=== PATIENT | male | born 1955 | race Caucasian/White ===

== ENCOUNTER 2019-10-09 08:54 | Outpatient (CLI) | payer BC, SELFPAY ==
--- NOTE | ~2019-10-09 | XR_ITS ---
EXAMINATION: XR ribs RT 2V DATE: 10/09/2019 09:14 INDICATION: Right rib pain. TECHNIQUE: 2 views of the right ribs on 4 radiographs were obtained. COMPARISON: Chest and right rib radiographs 01/31/2019, chest CT 01/31/2019 FINDINGS: Sensitivity is decreased by obesity. There is no right-sided pleural effusion or pneumothor ax. There is no rib fracture. IMPRESSION: 1. No rib fracture. Reviewed, dictated and finalized at location A. IMPRESSION: 1. No rib fracture.
== END 2019-10-09 08:55 | disposition home or self-care (01) ==
LOC: ANHIMG 09:04
PROVIDERS: PCP Family Medicine; Visit Provider Family Medicine
DX: R07.81 Pleurodynia (principal)
CPT/HCPCS: 71100

== ENCOUNTER 2020-11-03 09:14 | Outpatient (CLI) | payer BC, SELFPAY ==
[2020-11-03 09:49] LABS: Hematocrit 38.3 % (42.0-52.0); Mean Corpuscular HGB Conc 31.3 g/dl (32-36); Mean Corpuscular Hemoglobin 28.6 pg (26-34); Mean Corpuscular Volume 91.4 fl (80-100); Mean Platelet Volume 10.3 fl (7.4-10.4); Platelet Count Result 248 k/mm3 (150-375); Red Blood Count 4.19 M/mm3 (4.6-6.20); Red Cell Distribution Width 13.6 % (11.5-14.5); White Blood Count 11.6 K/mm3 (4.5-10.0)
[2020-11-03 10:04] LABS: Add Urine Microscopic? YES; Appearance Urine Clear (Clear); Bilirubin Urine Negative (Negative); Blood Urine Negative (Negative); Color Urine Yellow (Yellow); Glucose Urine UA Negative (Negative); Ketones Urine Negative (Negative); Leukocyte Esterase Ur Negative LEU/UL (NEGATIVE); Mucus Urine Few /lpf; Nitrate Urine Negative (Negative); Protein Urine 2+ mg/dL (Negative); Squamous Epithelial Cell Urine Rare /hpf (Few); WBC Urine 0-3 /hpf (0-3)
[2020-11-03 10:07] LABS: Alanine Aminotransferase 30 U/L (4-50); Albumin Level 4.2 g/dL (3.5-5.1); Alkaline Phosphatase 106 U/L (38-126); Anion Gap 11 mmol/L (8-16); Aspartate Amino Transferase 32 U/L (17-59); Bilirubin,Total 0.5 mg/dL (0.2-1.3); Blood Urea Nitrogen 17 mg/dL (9-20); Carbon Dioxide 26 mmol/L (22-30); Chloride 102 mmol/L (98-107); Cholesterol 141 mg/dL (0-200); Estimated Glomerular Filt Rate > 60; Glucose 142 mg/dL (65-110); HDL Direct 32 mg/dL; Potassium 4.6 mmol/L (3.4-5.0); Sodium 139 mmol/L (137-145); Triglycerides 101 mg/dL (<150)
[2020-11-03 10:18] LABS: LDL Cholesterol Direct 95 mg/dL
[2020-11-03 10:24] LABS: Hemoglobin A1C 7.3 % (<5.7)
[2020-11-03 10:36] LABS: Prostate Specific Antigen 2.4 ng/mL (< OR = 4.0)
== END 2020-11-03 09:15 | disposition home or self-care (01) ==
PROVIDERS: PCP Family Medicine; Visit Provider Family Medicine
DX: Z00.00 Encounter for general adult medical examination without abnormal findings (principal); R73.01 Impaired fasting glucose; E78.5 Hyperlipidemia, unspecified; I10 Essential (primary) hypertension; R35.1 Nocturia; R53.83 Other fatigue
CPT/HCPCS: 36415; 80053; 80061; 81001; 83036; 84153; 84443; 85027

== ENCOUNTER 2021-03-24 10:42 | Outpatient (CLI) | payer BC, SELFPAY ==
[2021-03-24 11:28] LABS: Alanine Aminotransferase 29 U/L (4-50); Albumin Level 3.8 g/dL (3.5-5.1); Alkaline Phosphatase 88 U/L (38-126); Anion Gap 9 mmol/L (8-16); Aspartate Amino Transferase 27 U/L (17-59); Bilirubin,Total 0.6 mg/dL (0.2-1.3); Blood Urea Nitrogen 19 mg/dL (9-20); Calcium 8.6 mg/dL (8.4-10.2); Carbon Dioxide 26 mmol/L (22-30); Chloride 101 mmol/L (98-107); Estimated Glomerular Filt Rate > 60; Glucose 117 mg/dL (65-110); Potassium 4.6 mmol/L (3.4-5.0); Sodium 136 mmol/L (137-145)
[2021-03-24 11:52] LABS: Hemoglobin A1C 6.1 % (<5.7)
== END 2021-03-24 10:43 | disposition home or self-care (01) ==
LOC: ANHLAB 10:44
PROVIDERS: PCP Family Medicine; Visit Provider Family Medicine
DX: E11.9 Type 2 diabetes mellitus without complications (principal)
CPT/HCPCS: 36415; 80053; 83036

== ENCOUNTER 2021-06-23 09:47 | Outpatient (CLI) | payer BC, SELFPAY ==
[2021-06-23 10:59] LABS: Alanine Aminotransferase 25 U/L (6-50); Albumin Level 4.1 g/dL (3.5-5.1); Alkaline Phosphatase 69 U/L (38-126); Anion Gap 11 mmol/L (8-16); Aspartate Amino Transferase 28 U/L (17-59); Bilirubin,Total 0.6 mg/dL (0.2-1.3); Blood Urea Nitrogen 18 mg/dL (9-20); Calcium 8.8 mg/dL (8.4-10.2); Carbon Dioxide 25 mmol/L (22-30); Chloride 102 mmol/L (98-107); Estimated Glomerular Filt Rate > 60; Glucose 109 mg/dL (65-110); Potassium 4.6 mmol/L (3.4-5.0); Sodium 138 mmol/L (137-145)
== END 2021-06-23 09:48 | disposition home or self-care (01) ==
LOC: ANHLAB 09:48
PROVIDERS: PCP Family Medicine; Visit Provider Family Medicine
DX: E11.9 Type 2 diabetes mellitus without complications (principal)
CPT/HCPCS: 36415; 80053; 83036

== ENCOUNTER 2022-01-19 02:04 | Day surgery (SDC) | payer MEDICARE, SELFPAY ==
[2022-01-13 11:01] VITALS: BMI 37.8
--- NOTE | 2022-01-18 17:01 | PM.HPGS ---
History of Present Illness History of Present Illness Consent: Risks, benefits, and alternatives have been discussed and questions answered. Patient agrees to proceed with procedure. Chief complaint: Hx of colon polyps Narrative: Monroe May (Joe) is a 66 year old male referred for colon cancer screening. He had a tubular adenoma removed about 5 years ago. Review of Systems Review of Systems: All systems reviewed & are unremarkable except as noted in HPI and below PMFSH Past Medical History Medical History Arthritis of right knee Benign hypertensive cardiomyopathy with heart failure Chronic anticoagulation Chronic atrial fibrillation Controlled diabetes mellitus Former smoker GERD (gastroesophageal reflux disease) HLD (hyperlipidemia) Hypertension Morbid obesity Morbid obesity with BMI of 45.0-49.9, adult Obesity EMMA on CPAP Osteoarthritis Pseudogout Surgical History Surgical History H/O cardiac radiofrequency ablation For treatment of AFIB without relief. History of colonoscopy 12/[address] Avila and found a small polyp that was removed and negative for cancer. History of tonsillectomy Family History Family History Father Malignant neoplasm of prostate, Onset Age: 89 Alzheimer disease Mother Family history of lupus erythematosus Diabetes mellitus Other Family history of arthritis Social History Social History Smoking packs per day: 2.5 Smoking cigarettes per day: 50.0 Years smoked: 25 Smoking pack-years: 62.50 Smoking status: Former smoker Tobacco type: cigarettes Smoking end date: 04/06/98 Alcohol intake: current Drinks per week: 3 Alcohol use details: DRINKS Substance use: never Substance use type: does not use Lack of Transportation: No Lack of Food: Never True Current Housing: I Have Housing Concerned About Future Housing: No Difficulty Paying Gas/Electric Bills: No Difficulty Paying for Meds: No Currently Unemployed: No Education: Bachelor's Degree Difficulty w/ Childcare or Family Care: No Living arrangements: alone Additional living arrangements comments: He lives in [place], [place] with his Alicia of 35 years. 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 Gender identity (if verbalized by the patient): Male Spiritual care concerns: No Agree to blood products: Yes Meds Home Medications and Allergies Home Medications Medication Instructions Recorded Confirmed Type rivaroxaban 20 mg tablet (Xarelto) 20 mg PO DAILY 01/31/19 01/19/22 History furosemide 20 mg tablet (Lasix) 20 mg PO DAILY 10/26/20 01/19/22 History naproxen sodium 220 mg tablet 220 mg PO BID PRN Pain 03/31/21 01/19/22 History (Flanax (naproxen)) lisinopril 20 mg tablet 20 mg PO DAILY #90 tabs 06/28/21 01/19/22 Rx metformin 500 mg tablet,extended 1,500 mg PO .COMPLEX #120 tabs 10/20/21 01/19/22 Rx release 24 hr omeprazole 20 mg capsule,delayed See Rx Instructions .Route 10/27/21 01/19/22 Rx release .COMPLEX #90 caps pravastatin 40 mg tablet 40 mg PO DAILY #90 tabs 10/27/21 01/19/22 Rx semaglutide 0.25 mg or 0.5 mg (2 0.25 mg (0.2 mL) subcut WEEKLY 01/04/22 01/19/22 Rx mg/1.5 mL) subcutaneous pen #1.5 mL injector ([employer]) metoprolol tartrate 50 mg tablet 100 mg PO BID 01/13/22 01/19/22 History methylprednisolone 4 mg tablets in See Rx Instructions PO PER PKG DIR 01/17/22 01/19/22 Rx a dose pack (Medrol (Tristan)) 6 days #21 ea Allergies Allergy/AdvReac Type Severity Reaction Status Date / Time No Known Allergies Allergy Verified 01/19/22 07:42 Exam Const: General: jocelyn
[2022-01-19 07:43] VITALS: BP 105/78; PULSE 69; RESP 22; TEMP 36.1; O2SAT 97; BMI 51.0
[2022-01-19 07:53] LABS: Glucose Point of Care 147 mg/dl (65-105)
[2022-01-19] MEDS: LACTATED RINGERS 1,000 ML 150 ML IV CONT (07:56)
--- NOTE | 2022-01-19 08:37 | WPDANESEPPF ---
Anes - Initial Pre Proc Eval Procedure: Operation Date: 01/19/22 09:00 Proposed Procedures p Screening Colonoscopy - Prince Avila MD Date/Time: 01/19/22 08:37 Surgeon: Prince Avila MD Pre Op Diagnosis: Hx of colon polyps Patient Data Age: 66 Gender: M Height: 1.8 m Weight: 166.2 kg Last Vital Signs Temp 97.0 F L 01/19/22 07:43 Pulse 69 01/19/22 07:43 Resp 22 H 01/19/22 07:43 BP 105/78 01/19/22 07:43 Pulse Ox 97 01/19/22 07:43 O2 Del Method Room Air 01/19/22 07:43 Allergies Allergy/AdvReac Type Severity Reaction Status Date / Time No Known Allergies Allergy Verified 01/19/22 07:42 Home Medications Medication Instructions Recorded Confirmed Type rivaroxaban 20 mg tablet (Xarelto) 20 mg PO DAILY 01/31/19 01/19/22 History furosemide 20 mg tablet (Lasix) 20 mg PO DAILY 10/26/20 01/19/22 History naproxen sodium 220 mg tablet 220 mg PO BID PRN Pain 03/31/21 01/19/22 History (Flanax (naproxen)) lisinopril 20 mg tablet 20 mg PO DAILY #90 tabs 06/28/21 01/19/22 Rx metformin 500 mg tablet,extended 1,500 mg PO .COMPLEX #120 tabs 10/20/21 01/19/22 Rx release 24 hr omeprazole 20 mg capsule,delayed See Rx Instructions .Route 10/27/21 01/19/22 Rx release .COMPLEX #90 caps pravastatin 40 mg tablet 40 mg PO DAILY #90 tabs 10/27/21 01/19/22 Rx semaglutide 0.25 mg or 0.5 mg (2 0.25 mg (0.2 mL) subcut WEEKLY 01/04/22 01/19/22 Rx mg/1.5 mL) subcutaneous pen #1.5 mL injector (Ozempic) metoprolol tartrate 50 mg tablet 100 mg PO BID 01/13/22 01/19/22 History methylprednisolone 4 mg tablets in See Rx Instructions PO PER PKG DIR 01/17/22 01/19/22 Rx a dose pack (Medrol (Tristan)) 6 days #21 ea Laboratory Tests 01/19/22 07:50 POC Capillary Glucose 147 mg/dl H mg/dl (65-105) Patient hx anesthesia problems: none Family hx anesthesia problems: none Results Review: All pre-operative results and documents have been reviewed as part of the pre-operative evaluation. [facility] Past Medical History Medical History Arthritis of right knee Benign hypertensive cardiomyopathy with heart failure Chronic anticoagulation Chronic atrial fibrillation Controlled diabetes mellitus Former smoker GERD (gastroesophageal reflux disease) HLD (hyperlipidemia) Hypertension Morbid obesity Morbid obesity with BMI of 45.0-49.9, adult Obesity EMMA on CPAP Osteoarthritis Pseudogout Surgical History Surgical History H/O cardiac radiofrequency ablation For treatment of AFIB without relief. History of colonoscopy 12/[address] Avila and found a small polyp that was removed and negative for cancer. History of tonsillectomy Family History Family History Father Malignant neoplasm of prostate, Onset Age: 89 Alzheimer disease Mother Family history of lupus erythematosus Diabetes mellitus Other Family history of arthritis Social History Social History Smoking packs per day: 2.5 Smoking cigarettes per day: 50.0 Years smoked: 25 Smoking pack-years: 62.50 Smoking status: Former smoker Tobacco type: cigarettes Smoking end date: 04/06/98 Alcohol intake: current Drinks per week: 3 Alcohol use details: DRINKS Substance use: never Substance use type: does not use Lack of Transportation: No Lack of Food: Never True Current Housing: I Have Housing Concerned About Future Housing: No Difficulty Paying Gas/Electric Bills: No Difficulty Paying for Meds: No Currently Unemployed: No Education: Bachelor's Degree Difficulty w/ Childcare or Family Care: No Living arrangements: alone Additional living arrangements comments: He lives in [place], [place] with his Alicia of 35 years. Additional occupation/educa
[2022-01-19 09:02] VITALS: BP 120/75; PULSE 73; RESP 12; O2SAT 100
[2022-01-19 09:12] VITALS: BP 116/74; PULSE 77; RESP 26; O2SAT 96
[2022-01-19 09:22] VITALS: BP 128/79; PULSE 79; RESP 21; O2SAT 97
== END 2022-01-19 09:26 | disposition home or self-care (01) ==
PROVIDERS: PCP Family Medicine; Visit Provider Internal Medicine Gastroenterology
PROC: 0DJD8ZZ Inspection of Lower Intestinal Tract, Via Natural or Artificial Opening Endoscopic (ICD-10-PCS; CPT 45378; principal; 2022-01-19 09:00)
DX: Z12.11 Encounter for screening for malignant neoplasm of colon (principal); K57.30 Diverticulosis of large intestine without perforation or abscess without bleeding; Z86.010 Personal history of colon polyps; I11.0 Hypertensive heart disease with heart failure; I50.9 Heart failure, unspecified; I43 Cardiomyopathy in diseases classified elsewhere; I48.20 Chronic atrial fibrillation, unspecified; E11.9 Type 2 diabetes mellitus without complications; E78.5 Hyperlipidemia, unspecified; K21.9 Gastro-esophageal reflux disease without esophagitis; G47.33 Obstructive sleep apnea (adult) (pediatric); E66.01 Morbid (severe) obesity due to excess calories; Z68.43 Body mass index [BMI] 50.0-59.9, adult; Z87.891 Personal history of nicotine dependence; Z79.01 Long term (current) use of anticoagulants; Z79.84 Long term (current) use of oral hypoglycemic drugs; Z79.899 Other long term (current) drug therapy
CPT/HCPCS: G0105; 82948; J2704; J7120

== ENCOUNTER 2022-02-08 15:12 | Outpatient (CLI) | payer MEDICARE, SELFPAY ==
[2022-02-08 16:10] LABS: Hematocrit 40.6 % (42.0-52.0); Hemoglobin 12.9 g/dL (14.0-18.0); Mean Corpuscular HGB Conc 31.8 g/dl (32-36); Mean Corpuscular Hemoglobin 29.5 pg (26-34); Mean Corpuscular Volume 92.7 fl (80-100); Mean Platelet Volume 9.8 fl (7.4-10.4); Platelet Count Result 295 k/mm3 (150-375); Red Blood Count 4.38 M/mm3 (4.6-6.20); Red Cell Distribution Width 13.2 % (11.5-14.5); White Blood Count 13.3 K/mm3 (4.5-10.0)
[2022-02-08 16:27] LABS: Add Urine Microscopic? NO; Appearance Urine Clear (Clear); Bilirubin Urine Negative (Negative); Blood Urine Negative (Negative); Color Urine Yellow (Yellow); Glucose Urine UA Negative (Negative); Ketones Urine Negative (Negative); Leukocyte Esterase Ur Negative LEU/UL (NEGATIVE); Nitrate Urine Negative (Negative); Protein Urine Negative (Negative); Specific Grav Ur 1.015 (1.001-1.035); Urobilinogen Urine 0.2 mg/dL (<2.0)
[2022-02-08 18:25] LABS: Creatinine Urine 147.5 mg/dL
[2022-02-08 18:35] LABS: Microalbumin Urine Random 36.9 mg/L (0-16.7)
[2022-02-08 19:01] LABS: Alanine Aminotransferase 28 U/L (6-50); Albumin Level 4.2 g/dL (3.5-5.1); Alkaline Phosphatase 66 U/L (38-126); Anion Gap 9 mmol/L (8-16); Aspartate Amino Transferase 21 U/L (17-59); Bilirubin,Total 0.4 mg/dL (0.2-1.3); Blood Urea Nitrogen 22 mg/dL (9-20); Calcium 8.7 mg/dL (8.4-10.2); Carbon Dioxide 25 mmol/L (22-30); Chloride 100 mmol/L (98-107); Cholesterol 185 mg/dL (0-200); Estimated Glomerular Filt Rate > 60; Glucose 109 mg/dL (65-110); HDL Direct 47 mg/dL; Potassium 4.5 mmol/L (3.4-5.0); Sodium 134 mmol/L (137-145); Triglycerides 107 mg/dL (<150)
[2022-02-08 19:10] LABS: NT Pro B Type Natriuretic Pept 420 pg/mL (5-100)
[2022-02-08 19:14] LABS: LDL Cholesterol Direct 101 mg/dL
[2022-02-08 19:33] LABS: Prostate Specific Antigen 6.2 ng/mL (< OR = 4.0)
[2022-02-08 20:20] LABS: Hemoglobin A1C 6.3 % (<5.7)
== END 2022-02-08 15:13 | disposition home or self-care (01) ==
PROVIDERS: PCP Family Medicine; Referring Provider Internal Medicine Cardiovascular Disease; Visit Provider Internal Medicine Cardiovascular Disease
DX: R06.09 Other forms of dyspnea (principal); I50.43 Acute on chronic combined systolic (congestive) and diastolic (congestive) heart failure; Z79.01 Long term (current) use of anticoagulants; I11.0 Hypertensive heart disease with heart failure; E78.5 Hyperlipidemia, unspecified; E11.9 Type 2 diabetes mellitus without complications; R35.1 Nocturia; R53.83 Other fatigue
CPT/HCPCS: 36415; 80053; 80061; 81003; 82043; 83036; 83880; 84153; 84443; 85027

== ENCOUNTER 2022-03-22 00:42 | Day surgery (SDC) | payer MEDICARE, SELFPAY ==
[2022-03-21 13:55] VITALS: BMI 52.7
[2022-03-22] VITALS (10 sets, daily range): BP systolic 106–124; BP diastolic 73–95; PULSE 70–94; RESP 14–21; TEMP 36.2; O2SAT 94–98; BMI 50.4
[2022-03-22 11:17] LABS: Glucose Point of Care 117 mg/dl (65-105)
--- NOTE | 2022-03-22 11:40 | PM.IMHP ---
H&P: HPI History of Present Illness Date/Time: 03/22/22 11:40 Chief Complaint: Mitral regurgitation, MCNEIL Narrative: Monroe May this 66-year-old male with significant MCNEIL, persistent atrial fibrillation and mild cardiomyopathy. He has some CHF. He has mitral regurgitation which is probably moderate, but his echo is difficult to interpret due to his body habitus and he is here for further evaluation of the degree of his mitral regurgitation. He also has hypertension, hyperlipidemia, sleep apnea, diabetes, history of hyponatremia and morbid obesity. He is NPO but is taking his metoprolol this morning. Review of Systems Constitutional: Constitutional: Denies fever(s) Eyes: Eyes: Reports no additional eye complaints ENT: Denies epistaxis Cardiovascular: Cardiovascular: Denies chest pain, Reports pedal edema, Reports lightheadedness and Reports dyspnea Comments: Has had problems with lightheadedness, while venous and some vertigo since I changes medications recently. Less edema recently. Respiratory: Respiratory: Denies chest congestion and Reports dyspnea Comments: Significant SOB and MCNEIL with ADLs Gastrointestinal: Gastrointestinal: Denies abdominal pain and Denies hematochezia Musculoskeletal: Musculoskeletal: Reports no additional musculoskeletal complaints Integumentary/Breasts: Skin/Breast: Reports system reviewed and no additional complaints, except as docu Neurologic: Reports system reviewed and no additional complaints, except as documented, Denies behavioral changes and Denies confusion Psychiatric: Psychiatric: Denies behavioral changes and Denies confusion [facility] Past Medical History Medical History (Updated 03/22/22 @ 11:46 by Kellee Garzon MD) Arthritis of right knee Benign hypertensive cardiomyopathy with heart failure Chronic anticoagulation Chronic atrial fibrillation Chronic combined systolic and diastolic CHF (congestive heart failure) Controlled diabetes mellitus Former smoker GERD (gastroesophageal reflux disease) HLD (hyperlipidemia) Hypertension Mitral regurgitation Morbid obesity Morbid obesity with BMI of 45.0-49.9, adult Obesity EMMA on CPAP Osteoarthritis Pseudogout Surgical History Surgical History H/O cardiac radiofrequency ablation For treatment of AFIB without relief. History of colonoscopy 12/[address] Avila and found a small polyp that was removed and negative for cancer. History of tonsillectomy Family History Family History Father Malignant neoplasm of prostate, Onset Age: 89 Alzheimer disease Mother Family history of lupus erythematosus Diabetes mellitus Other Family history of arthritis Social History Social History (Updated 03/22/22 @ 11:44 by Kellee Garzon MD) Social History: Patient's /significant other a few months ago of metastatic cancer. 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 Smoking packs per day: 2.5 Smoking cigarettes per day: 50.0 Years smoked: 25 Smoking pack-years: 62.50 Smoking status: Former smoker Tobacco type: cigarettes Smoking end date: 04/06/98 Alcohol intake: current Drinks per week: 3 Alcohol use details: DRINKS Substance use: never Substance use type: does not use Lack of Transportation: No Lack of Food: Never True Current Housing: I Have Housing Concerned About Future Housing: No Difficulty Paying Gas/Electric Bills: No Difficulty Paying for Meds: No Currently Unemployed: No Education: Bachelor's Degree Difficulty w/ Childcare or Family Care: No Living arrangements: alone Additional living arrangements comments: He lives in [place], [place] with his Alicia of 35 years. Occupation/Education: retired Additional occupation/education comments: He is retired and worked in the [employer]
--- NOTE | 2022-03-22 11:46 | WPDMODSED ---
Moderate Sedation Note-Pt Data Patient Data Diagnosis: MCNEIL, mitral regurgitation, chronic diastolic heart failure, mild cardiomyopathy Present Complaint: Mitral regurgitation, MCNEIL Procedure to be performed/Plan: Transesophageal ECHO with conscious sedation to assess MR and LV function Allergies Allergy/AdvReac Type Severity Reaction Status Date / Time No Known Allergies Allergy Verified 03/22/22 10:44 Home Medications Medication Instructions Recorded Confirmed Type rivaroxaban 20 mg tablet (Xarelto) 20 mg PO DAILY 01/31/19 03/21/22 History furosemide 20 mg tablet (Lasix) 20 mg PO DAILY 10/26/20 03/21/22 History naproxen sodium 220 mg tablet 220 mg PO BID PRN Pain 03/31/21 03/21/22 History (Flanax (naproxen)) metformin 500 mg tablet,extended 1,500 mg PO .COMPLEX #120 tabs 10/20/21 03/21/22 Rx release 24 hr omeprazole 20 mg capsule,delayed See Rx Instructions .Route 10/27/21 03/21/22 Rx release .COMPLEX #90 caps metoprolol tartrate 50 mg tablet 100 mg PO BID 01/13/22 03/22/22 History pravastatin 40 mg tablet 40 mg PO DAILY #90 tabs 02/24/22 03/21/22 Rx dapagliflozin 10 mg tablet 10 mg PO DAILY #30 tabs 03/07/22 03/21/22 Rx (Farxiga) sacubitril 24 mg-valsartan 26 mg 1 tablet PO BID #60 tabs 03/07/22 03/21/22 Rx tablet (Entresto) spironolactone 25 mg tablet 25 mg PO DAILY #30 tabs 03/07/22 03/21/22 Rx methylprednisolone 4 mg tablets in See Rx Instructions PO PER PKG DIR 03/08/22 03/21/22 Rx a dose pack (Medrol (Tristan)) 6 days #21 ea semaglutide 1 mg/dose (4 mg/3 mL) 0.5 mg subcut WEEKLY 03/22/22 History subcutaneous pen injector Current Medications: Active Medications Sodium Chloride (Normal Saline Iv) 1,000 mls @ 30 mls/hr IV CONT .Q24H [place] Sedation/Anesthesia: No previous sedation/anesthesia problems (including family history). [facility] Past Medical History Medical History Arthritis of right knee Benign hypertensive cardiomyopathy with heart failure Chronic anticoagulation Chronic atrial fibrillation Chronic combined systolic and diastolic CHF (congestive heart failure) Controlled diabetes mellitus Former smoker GERD (gastroesophageal reflux disease) HLD (hyperlipidemia) Hypertension Mitral regurgitation Morbid obesity Morbid obesity with BMI of 45.0-49.9, adult Obesity EMMA on CPAP Osteoarthritis Pseudogout Surgical History Surgical History H/O cardiac radiofrequency ablation For treatment of AFIB without relief. History of colonoscopy 12/[address] Avila and found a small polyp that was removed and negative for cancer. History of tonsillectomy Family History Family History Father Malignant neoplasm of prostate, Onset Age: 89 Alzheimer disease Mother Family history of lupus erythematosus Diabetes mellitus Other Family history of arthritis Social History Social History Social History: Patient's /significant other a few months ago of metastatic cancer. 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 Smoking packs per day: 2.5 Smoking cigarettes per day: 50.0 Years smoked: 25 Smoking pack-years: 62.50 Smoking status: Former smoker Tobacco type: cigarettes Smoking end date: 04/06/98 Alcohol intake: current Drinks per week: 3 Alcohol use details: DRINKS Substance use: never Substance use type: does not use Lack of Transportation: No Lack of Food: Never True Current Housing: I Have Housing Concerned About Future Housing: No Difficulty Paying Gas/Electric Bills: No Difficulty Paying for Meds: No Currently Unemployed: No Education: Bachelor's Degree Difficulty w/ Childcare or Family Care: No Living arrangements: alone Additional living arrangements comments:
--- NOTE | 2022-03-22 12:10 | PM.OP ---
Procedure Note - Brief Procedure Note - Brief Date of procedure: 03/22/22 Pre-op diagnosis: moderate regurgitation Moderate mitral regurgitation, LV function at the lower end of normal, EF 50% Procedure performed: Conscious sedation Transesophageal echo Description of procedure: Uneventful transesophageal echo Surgeon: Kellee Garzon MD Findings: Mitral regurgitation which is no more than moderate, LV function at the lower end of normal EF 50%
--- NOTE | 2022-03-22 12:11 | W.PM.PROC2 ---
Procedure Note - Detailed Date of Procedure 03/22/22 Pre-op Diagnosis moderate regurgitation Post-op Diagnosis Same Procedure Performed Conscious sedation Transesophageal echo Surgeon Kellee Garzon MD Anesthesia Local (With conscious sedation) Indications Monroe May this 66-year-old male with significant MCNEIL, persistent atrial fibrillation and mild cardiomyopathy.? He has some CHF.? He has mitral regurgitation which is probably moderate, but his echo is difficult to interpret due to his body habitus and he is here for further evaluation of the degree of his mitral regurgitation.? He also has hypertension, hyperlipidemia, sleep apnea, diabetes, history of hyponatremia and morbid obesity. Findings Left ventricular function of the lower end of normal, EF 50%. Mitral regurgitation, moderate at most No evidence of intracardiac shunting Plan: The patient's mitral regurgitation is unlikely to be contributing significantly to his MCNEIL. His atrial fibrillation seems well controlled, heart rate in the upper 70's to 80s here. We will continue to treat him for diastolic heart failure and he will continue to try to lose weight as his obesity is likely contributing. He has been having dizziness and some vertigo since I added Farxiga, Entresto and spironolactone. His edema has improved, and he is perhaps having a little improvement and his exertional capacity. Will hold the Entresto for now because of his dizziness, says his blood pressure was running somewhat soft here, 100-110 mmHg and he appears symptomatic. Description of Procedure Conscious sedation: Assessment: The patient has no history of anesthesia problems. The patient's oropharynx is clear. The patient was deemed to be a good candidate for conscious sedation. The patient had continuous hemodynamic and oximetric monitoring during the procedure. Start time: 11:53 a.m. Completion time: 12:12 p.m. Total conscious sedation time: 19 minute Medications Used: Versed 2 mg, fentanyl 100 mcg IV push Trained observer: Elaina Canada RN Outcome: The patient tolerated the procedure well with no complications. Procedure: After informed consent the patient had viscous lidocaine gargle and Hurricaine spray the hypopharynx. The patient had conscious sedation as described above. The transesophageal echo probe was introduced in the esophagus without difficulty. Imaging was obtained in multiplane views. Agitated saline was injected to evaluate for intracardiac shunting. The patient tolerated the procedure well with no complications. Findings: The left atrium was moderate to severely enlarged with spontaneous contrast present. There is no thrombus present in the left atrium or left atrial appendage. The atrial septum appeared intact. Mitral valve appeared normal, with no stenosis or prolapse. The left ventricle had had normal size and thickness with contractility at the lower end of normal, EF estimated to be 50%. The aortic root and valve were normal. The ascending aorta, aortic arch and descending thoracic aorta were normal. The right atrium was also moderate to severely enlarged. The tricuspid valve, right ventricle, pulmonic valve and pulmonic artery were all normal. There is no pericardial effusion. When agitated saline was injected intravenously there was no evidence of intracardiac shunting during normal respiration, cough and Valsalva. Colorflow Doppler Findings: Color-flow Doppler suggested mild to moderate to moderate moderate mitral regurgitation at most. Doppler the pulmonary vein did not show any evidence of flow reversal. There is trivial aortic insufficiency. Complications No immediate complications Condition Stable Disposition Observation
== END 2022-03-22 13:20 | disposition home or self-care (01) ==
PROVIDERS: PCP Family Medicine; Visit Provider Internal Medicine Cardiovascular Disease
PROC: (CPT 93312; principal; 2022-03-22 11:30)
DX: I34.0 Nonrheumatic mitral (valve) insufficiency (principal); I42.9 Cardiomyopathy, unspecified; I48.20 Chronic atrial fibrillation, unspecified; I11.0 Hypertensive heart disease with heart failure; I50.42 Chronic combined systolic (congestive) and diastolic (congestive) heart failure; E11.9 Type 2 diabetes mellitus without complications; K21.9 Gastro-esophageal reflux disease without esophagitis; G47.33 Obstructive sleep apnea (adult) (pediatric); Z87.891 Personal history of nicotine dependence; Z79.01 Long term (current) use of anticoagulants; Z79.84 Long term (current) use of oral hypoglycemic drugs; Z79.899 Other long term (current) drug therapy
CPT/HCPCS: 82948; 93312; 93320; 93325; J2250; J2310; J3010; J7030

== ENCOUNTER 2022-03-25 10:40 | Outpatient (CLI) | payer MEDICARE, SELFPAY ==
[2022-03-25 12:22] LABS: Anion Gap 8 mmol/L (8-16); Blood Urea Nitrogen 28 mg/dL (9-20); Calcium 8.9 mg/dL (8.4-10.2); Carbon Dioxide 27 mmol/L (22-30); Chloride 101 mmol/L (98-107); Estimated Glomerular Filt Rate > 60; Glucose 107 mg/dL (65-110); Potassium 3.8 mmol/L (3.4-5.0); Sodium 136 mmol/L (137-145)
[2022-03-25 12:25] LABS: Rheumatoid Factor > 120.0 IU/ML (<12)
[2022-03-30 21:03] LABS: Anti Cyclic Citrullinated Pept >250 Units (<20)
== END 2022-03-25 10:41 | disposition home or self-care (01) ==
PROVIDERS: PCP Family Medicine; Referring Provider Internal Medicine Cardiovascular Disease; Visit Provider Family Medicine
DX: I50.32 Chronic diastolic (congestive) heart failure (principal); I51.89 Other ill-defined heart diseases; I42.9 Cardiomyopathy, unspecified; R06.09 Other forms of dyspnea
CPT/HCPCS: 36415; 80048; 86038; 86039; 86200; 86430

== ENCOUNTER 2022-12-08 13:40 | Outpatient (CLI) | payer MEDICARE, SELFPAY ==
[2022-12-08 16:10] LABS: Alanine Aminotransferase 17 U/L (6-50); Albumin Level 4.3 g/dL (3.5-5.1); Alkaline Phosphatase 84 U/L (38-126); Anion Gap 11 mmol/L (8-16); Aspartate Amino Transferase 26 U/L (17-59); Blood Urea Nitrogen 14 mg/dL (9-20); Calcium 9.9 mg/dL (8.4-10.2); Carbon Dioxide 25 mmol/L (22-30); Chloride 96 mmol/L (98-107); Estimated Glomerular Filt Rate > 60; Glucose 115 mg/dL (65-110); Potassium 3.9 mmol/L (3.4-5.0); Sodium 132 mmol/L (137-145)
[2022-12-08 23:56] LABS: Hemoglobin A1C 5.2 % (<5.7)
== END 2022-12-08 13:41 | disposition home or self-care (01) ==
PROVIDERS: PCP Family Medicine; Visit Provider Family Medicine
DX: E11.9 Type 2 diabetes mellitus without complications (principal)
CPT/HCPCS: 36415; 80053; 83036

== ENCOUNTER 2023-04-12 10:13 | Outpatient (CLI) | payer MEDICARE, SELFPAY ==
--- NOTE | ~2023-04-12 | CT_ITS ---
CT of the Abdomen and Pelvis: Indication: Hematuria Technique: 2.5 mm axial scans were obtained through the abdomen and pelvis prior to and following in travenous administration of 130 cc of Omnipaque 350. Dose reduction technique was used on this scan b y utilizing automated exposure control and iterative reconstruction technique. The dose-length produc t (DLP) was 3166.46 mGy-cm. Findings: Scans through the lung bases are unremarkable. The liver, spleen, pancreas, gallbladder, adrenals and kidneys are within normal limits. There are at herosclerotic calcifications of the aorta. No lymphadenopathy. No bowel obstruction or bowel wall thickening. There is no evidence to suggest acute appendicitis. Images through the pelvis were performed. Urinary bladder unremarkable. No pelvic mass seen. No ascit es. Impression: No significant abnormalities seen. No etiology for hematuria identified. Reviewed, dictated and finalized at [facility]. NESS CONTINUITY COORDINATOR Impression: No significant abnormalities seen. No etiology for hematuria identified.
[2023-04-12 10:52] LABS: Estimated Glomerular Filt Rate > 60
== END 2023-04-12 10:14 | disposition home or self-care (01) ==
PROVIDERS: Visit Provider Physician Assistant
DX: R31.0 Gross hematuria (principal)
CPT/HCPCS: 74178; Q9967

== ENCOUNTER 2023-08-08 18:18 | Inpatient (IN) | payer MEDICARE, SELFPAY ==
[2023-08-08] VITALS (10 sets, daily range): BP systolic 84–120; BP diastolic 50–80; PULSE 76–94; RESP 16–22; TEMP 36.8; O2SAT 98–100
--- NOTE | ~2023-08-08 | XR_ITS ---
EXAMINATION: XR chest 2V Exam Date/Time: 08/08/2023 20:03 CDT HISTORY: sepsis, AFIB Comparison: 05/27/2016; CTPA 01/31/2019; x-ray right RIBS 10/09/2019. RESULT: Lines, tubes, and devices: None. Lungs and pleura: Clear. Calcified left lower lung granuloma. Cardiomediastinal silhouette: Stable. Other: No acute osseous or upper abdominal finding. IMPRESSION: No acute cardiopulmonary process. Reviewed, dictated and finalized at location K.
--- NOTE | ~2023-08-08 | CT_ITS ---
EXAMINATION: CT abdomen pelvis wo con DATE: 08/08/2023 21:46 INDICATION: hematuria, UTI TECHNIQUE: Computed tomography (CT) of the abdomen and pelvis was performed without intravenous contr ast. Automated exposure control and iterative reconstruction technique were employed. The dose-length product was 1410.45 mGy-cm. COMPARISON: 04/12/2023; CTPA 01/31/2019. FINDINGS: Lower thorax: Calcified left lower lobe granuloma. Aortic valve, coronary artery, and mitral calcific ations. Nonunited right posterior ninth rib fracture. Adjacent mild parenchymal fibrosis and scarring and stable sub-6 mm pulmonary nodules, likely granulomas. Liver: Normal. Biliary/Gallbladder: The gallbladder is partially contracted. No bile duct dilation. Pancreas: No mass or duct dilation. Spleen: Normal. Adrenals:No mass. Kidneys: No suspicious mass, obstructing stone, or hydronephrosis. GI tract: No small or large bowel dilation. Normal appendix. Diverticulosis without diverticulitis. Mesentery/Peritoneum: No ascites, mass, or free air. Retroperitoneum: No mass. Atherosclerotic abdominal aortic and/or arterial calcifications. Pelvis: Pelvic organs are within normal limits. Soft Tissues: Soft tissues and body wall unremarkable. Bones: No acute osseous finding. IMPRESSION: No acute abdominopelvic process detected. Reviewed, dictated and finalized at location K.
[2023-08-08 18:48] LABS: Basophils Absolute Auto 0.1 K/mm3 (0.0-0.1); Basophils Percent Auto 0.9 % (0.2-1.2); Eosinophils Absolute Auto 0.3 K/mm3 (0-0.3); Eosinophils Percent Auto 3.4 % (0-4.4); Hematocrit 26.7 % (42.0-52.0); Immature Granulocyte Absolute 0.03 K/mm3 (0.00-0.031); Immature Granulocyte Percent A 0.4 % (0-0.5); Lymphocytes Absolute Auto 0.82 K/mm3 (0.9-3.2); Lymphocytes Percent Auto 10.7 % (18.3-44.2); Mean Corpuscular Hemoglobin 25.8 pg (26-34); Mean Corpuscular Volume 86.1 fl (80-100); Mean Platelet Volume 8.8 fl (7.4-10.4); Monocytes Absolute Auto 0.5 K/mm3 (0.1-0.6); Neutrophils Percent Auto 77.6 % (45.5-73.1); Platelet Count Result 377 k/mm3 (150-375); Red Cell Distribution Width 18.1 % (11.5-14.5); White Blood Count 7.7 K/mm3 (4.5-10.0)
[2023-08-08 18:59] LABS: Alanine Aminotransferase 10 U/L (6-50); Albumin Level 3.7 g/dL (3.5-5.1); Alkaline Phosphatase 123 U/L (38-126); Anion Gap 12 mmol/L (4-12); Aspartate Amino Transferase 20 U/L (17-59); Bilirubin,Total 0.6 mg/dL (0.2-1.3); Blood Urea Nitrogen 18 mg/dL (9-20); Calcium 8.7 mg/dL (8.4-10.2); Carbon Dioxide 21 mmol/L (22-30); Chloride 102 mmol/L (98-107); Estimated CRCL calculation 122 ml/min; Estimated Glomerular Filt Rate > 60; Glucose 102 mg/dL (65-110); Potassium 3.9 mmol/L (3.4-5.0); Sodium 135 mmol/L (137-145)
[2023-08-08 19:00] LABS: INR 1.6; Prothrombin Time 19.5 Seconds (11.1-14.7)
[2023-08-08 19:01] LABS: Partial Thromboplastin Time 40.5 Seconds (22.3-36.8)
--- NOTE | 2023-08-08 19:11 | PC.NURSE ---
Assumed care of pt from Cat RN at this time. Pt resting comfortably in bed w call light within reach. No additional requests at this time.
--- NOTE | 2023-08-08 19:11 | ED.GENADULT ---
HPI - General Adult General Chief complaint: Recheck/Abnormal Lab/Rx Stated complaint: low hemoglobin Time Seen by Provider: 08/08/23 18:59 History of Present Illness HPI narrative: Patient is a 67 year old male with history of DM, HTN, Afib on Xeralto, diastolic dysfunction, HLD, GERD, rheumatoid arthritis here with low hgb from his PCP's office. Patient notes that he had outpatient labs performed 2 weeks ago through his PCP's office, they noted low hgb, were concerned it could be a lab error and redrew the labs. It continued to be low (unsure of the actual number) so he was informed by his PCP that he should come into the ER for evaluation. Patient notes some associated shortness of breath and fatigue which he had attributed to his history of afib. He has been struggling with hematuria for months. He notes he has had several different rounds of antibiotics as well as an outpatient CT scan and cystoscope via Dr. King to look for source of bleeding. He notes the urine ranges from a light pink to a dark black color. His urine was quite dark a couple of weeks ago and he just finished a course of antibiotics (unknown which antibiotic) via his PCP and this has improved the color of his urine. He denies fever, chills, chest pain. He does follow with Dr. Garzon for his afib, he takes lasix and spironolactone, he is unsure of what his EF is. He denies cough, congestion. He has struggled with alternating constipation and diarrhea for years, last bowel movement was yesterday. He denies dark stools or blood per rectum. 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 Related Data Home Medications Medication Instructions Recorded Confirmed rivaroxaban 20 mg tablet (Xarelto) 20 mg PO DAILY 01/31/19 08/09/23 furosemide 20 mg tablet (Lasix) 20 mg PO DAILY 10/26/20 08/09/23 naproxen sodium 220 mg tablet 220 mg PO BID Pain 03/31/21 08/09/23 (Flanax (naproxen)) metoprolol tartrate 50 mg tablet 100 mg PO BID 01/13/22 08/09/23 empagliflozin 10 mg tablet 10 mg PO DAILY 06/19/23 08/09/23 (Jardiance) losartan 25 mg tablet 25 mg PO DAILY 06/19/23 08/09/23 acetaminophen 325 mg capsule 650 mg PO Q4H PRN Pain (Scale 08/09/23 08/09/23 Score 1-3) hydroxychloroquine 200 mg tablet 400 mg PO DAILY 08/09/23 08/09/23 metformin 500 mg tablet,extended 1,000 mg PO 1800 08/09/23 08/09/23 release 24 hr metformin 500 mg tablet,extended 500 mg PO DAILY 08/09/23 08/09/23 release 24 hr omeprazole 20 mg capsule,delayed 20 mg PO DAILY 08/09/23 08/09/23 release Allergies Allergy/AdvReac Type Severity Reaction Status Date / Time No Known Allergies Allergy Verified 07/10/23 12:58 Review of Systems Review of Systems: All systems reviewed & are unremarkable except as noted in HPI and below PMFSH Past Medical History Medical History Arthritis of right knee Benign hypertensive cardiomyopathy with heart failure Chronic anticoagulation Chronic atrial fibrillation Chronic combined systolic and diastolic CHF (congestive heart failure) Controlled diabetes mellitus Former smoker GERD (gastroesophageal reflux disease) HLD (hyperlipidemia) Hypertension Mitral regurgitation Morbid obesity Morbid obesity with BMI of 45.0-49.9, adult Obesity EMMA on CPAP Osteoarthritis Pseudogout Rheumatoid arthritis Surgical History Surgical History H/O cardiac radiofrequency ablation For treatment of AFIB without relief. History of colonoscopy 12/[address] Avila and found a small polyp that was removed and negative for cancer. History of tonsillectomy Family History Family History Father Malignant neoplasm of prostate, Onset Age: 89 Alzheimer disease Mother Family history
--- NOTE | 2023-08-08 19:15 | ECG_ITS ---
Test Date: 2023-08-08 19:28:46 Measurements Intervals [place] Rate: 82 P: 0 MS: 0 QRS: 27 QRSD: 100 T: 88 QT: 393 QTc: 461 Interpretive Statements ATRIAL FIBRILLATION LOW QRS VOLTAGE IN LIMB LEADS BORDERLINE ST-T WAVE ABNORMALITY- LAT/HIGH LAT LEADS BASELINE ARTIFACT- II, III, AVF ABNORMAL ECG No previous ECG available for comparison Electronically Signed On 08-09-2023 06:23:47 CDT by Yohannes Woodruff D.O.
[2023-08-08] MEDS: LACTATED RINGERS 500 ML 999 ML IV CONT (19:49)
[2023-08-08 20:02] LABS: INR 1.6; Lactic Acid Reflex 2.3 mmol/L (0.7-2.0); Prothrombin Time 19.8 Seconds (11.1-14.7)
[2023-08-08 20:03] LABS: Partial Thromboplastin Time 48.4 Seconds (22.3-36.8)
--- NOTE | 2023-08-08 20:05 | PC.NURSE ---
Pt to XRAY at this time.
[2023-08-08 20:06] LABS: CRP 6.4 mg/dL (<1.0)
[2023-08-08 20:12] LABS: NT Pro B Type Natriuretic Pept 2040 pg/mL (19.9-100)
[2023-08-08 20:15] LABS: Troponin I < 0.012 ng/mL (0.000-0.034)
[2023-08-08 20:38] LABS: Appearance Urine Turbid (Clear); Bacteria Urine 4+ /hpf; Bilirubin Urine Negative (Negative); Blood Urine 3+ (Negative); Color Urine Yellow (Yellow); Glucose Urine UA 3+ mg/dL (Negative); Ketones Urine Negative (Negative); Leukocyte Esterase Ur 3+ LEU/UL (Negative); Nitrate Urine Positive (Negative); Protein Urine Trace mg/dL (Negative); RBC Urine >100 /hpf (0-2); Specific Grav Ur 1.019 (1.001-1.035); Squamous Epithelial Cell Urine None Seen /hpf (Few); Urobilinogen Urine 0.2 mg/dL (<2.0); WBC Urine >100 /hpf (0-3); pH Urine 5.5 (5.0-9.0)
[2023-08-08 20:39] LABS: Add Urine Microscopic? YES
[2023-08-08] MEDS: cefTRIAXone 2 GM/NS 100 ML 2 GM/100 ML BAG IVPB (21:28)
[2023-08-08] MEDS: SODIUM CHLORIDE 0.9% IV 500 ML 999 ML IV CONT (21:36)
[2023-08-08 22:48] LABS: Reflex Lactic Acid Yes or No Add Lactic
[2023-08-08 23:40] LABS: Lactic Acid 1.5 mmol/L (0.7-2.0)
[2023-08-09] VITALS (21 sets, daily range): BP systolic 91–120; BP diastolic 56–75; PULSE 72–109; RESP 14–19; TEMP 36.4–37.3; O2SAT 97–100; BMI 35.2
--- NOTE | 2023-08-09 03:27 | PM.IMHP ---
H&P: HPI History of Present Illness Date/Time: 08/09/23 03:27 Chief Complaint: Anemia Narrative: This is a very pleasant 67-year-old male with PMH ptt-[id number]-[id number] diabetes mellitus, hypertension, paroxysmal AFib on Xarelto, heart failure preserved ejection fraction, hyperlipidemia, GERD, EMMA on CPAP, rheumatoid arthritis, obesity, severe osteoarthritis of the bilateral lower extremities being worked up for bilateral knee replacements and is almost bed-bound due to the severity, who presents with a low hemoglobin from his PCPs office. He has not had anemia before and reports he had outpatient labs performed 2 weeks prior will low hemoglobin and on recheck it is continued to be low. He is also noted fatigue and shortness of breath which are intermittent however he does have that with his AFib. In the past 4 months he has also had intermittent hematuria. He has been seen by Dr. King, had cystoscopy and CT abdomen pelvis without any abnormal findings. In the past weeks the urine became very dark almost a black color. This started to resolve approximately 3 weeks ago. He has also received a couple rounds of antibiotics. However he denies dysuria or foul-smelling urine, denies fevers chills chest pains abdominal pain nausea vomiting or diarrhea. [place] [facility] evaluation demonstrated hypotension as low as 84/63 on arrival improving to 120/72 with 1 L of lactated Ringer's. WBC 7700, hemoglobin 8 with MCV 86.1. The last hemoglobin in our system is 12.9 in February of 2022. INR 1.6. BNP 0, CRP 6.4. His urine appeared clear and yellow, however urinalysis demonstrates turbid, 3+ blood, positive nitrates, greater than 100 wbc's, leuk esterase positive, greater than 100 rbc's, 4+ bacteria. CT abdomen pelvis without contrast not demonstrate acute abdominal pelvic process. In addition to 1 L lactated Ringer's he received ceftriaxone 2 g IV x1. Admitted on 08/09/2023 for workup of hematuria, anemia, treatment of urinary tract infection. Review of Systems Review of Systems: All systems reviewed & are unremarkable except as noted in HPI and below (Subjective) [facility] Past Medical History Medical History Arthritis of right knee Benign hypertensive cardiomyopathy with heart failure Chronic anticoagulation Chronic atrial fibrillation Chronic combined systolic and diastolic CHF (congestive heart failure) Controlled diabetes mellitus Former smoker GERD (gastroesophageal reflux disease) HLD (hyperlipidemia) Hypertension Mitral regurgitation Morbid obesity Morbid obesity with BMI of 45.0-49.9, adult Obesity EMMA on CPAP Osteoarthritis Pseudogout Rheumatoid arthritis Surgical History Surgical History H/O cardiac radiofrequency ablation For treatment of AFIB without relief. History of colonoscopy 12/[address] Avila and found a small polyp that was removed and negative for cancer. History of tonsillectomy Family History Family History Father Malignant neoplasm of prostate, Onset Age: 89 Alzheimer disease Mother Family history of lupus erythematosus Diabetes mellitus Other Family history of arthritis Social History Social History Social History: Patient's /significant other a few months ago of metastatic cancer. 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
[2023-08-09] MEDS: ACETAMINOPHEN 325 MG TABLET 650 MG PO (04:23)
[2023-08-09 06:01] LABS: Basophils Absolute Auto 0.1 K/mm3 (0.0-0.1); Basophils Percent Auto 0.9 % (0.2-1.2); Eosinophils Absolute Auto 0.2 K/mm3 (0-0.3); Eosinophils Percent Auto 4.2 % (0-4.4); Hematocrit 23.8 % (42.0-52.0); Immature Granulocyte Absolute 0.02 K/mm3 (0.00-0.031); Immature Granulocyte Percent A 0.4 % (0-0.5); Lymphocytes Absolute Auto 0.76 K/mm3 (0.9-3.2); Lymphocytes Percent Auto 14.4 % (18.3-44.2); Mean Corpuscular Hemoglobin 25.1 pg (26-34); Mean Corpuscular Volume 86.5 fl (80-100); Monocytes Absolute Auto 0.2 K/mm3 (0.1-0.6); Monocytes Percent Auto 4.6 % (2.6-8.5); Neutrophils Percent Auto 75.5 % (45.5-73.1); Platelet Count Result 367 k/mm3 (150-375); Red Blood Count 2.75 M/mm3 (4.6-6.20); Red Cell Distribution Width 18.1 % (11.5-14.5); White Blood Count 5.3 K/mm3 (4.5-10.0)
[2023-08-09 06:15] LABS: Anion Gap 10 mmol/L (4-12); Blood Urea Nitrogen 15 mg/dL (9-20); Calcium 8.2 mg/dL (8.4-10.2); Carbon Dioxide 21 mmol/L (22-30); Chloride 103 mmol/L (98-107); Estimated CRCL calculation 132 ml/min; Estimated Glomerular Filt Rate > 60; Glucose 83 mg/dL (65-110); Magnesium 1.2 mg/dL (1.6-2.3); Potassium 3.4 mmol/L (3.4-5.0); Sodium 134 mmol/L (137-145)
[2023-08-09 06:26] LABS: Iron 34 ug/dL (49-181)
[2023-08-09 06:32] LABS: Procalcitonin 0.1 ng/mL
[2023-08-09 06:35] LABS: Hemoglobin 6.9 g/dL (14.0-18.0)
[2023-08-09 06:36] LABS: Percent Iron Saturation 13 % (20-50)
[2023-08-09 06:37] LABS: Anisocytosis 1+; Basophilic Stippling 1+; Hypochromasia 1+; Platelet Estimate Adequate (Adequate)
[2023-08-09 06:38] LABS: Schistocytes None Seen
[2023-08-09 07:00] LABS: Glucose Point of Care 113 mg/dl (65-105)
[2023-08-09] MEDS: METOPROLOL TARTRATE 50 MG TAB 100 MG PO ×2 (09:11→22:10)
[2023-08-09] MEDS: POTASSIUM CHLORIDE INJ 40 MEQ in SODIUM CHLORIDE 0.9% IV 500 ML 130 MEQ IVPB (09:21)
[2023-08-09] MEDS: MAGNESIUM SULF 2 GM/WATER 50ML 2 GM/50 ML BAG IVPB (09:21)
[2023-08-09] MEDS: TUBING, BLOOD PLUM PUMP TUBING 1 EACH XX ×2 (09:24→15:12)
[2023-08-09] MEDS: SODIUM CHLORIDE 0.9% IV 250 ML 30 ML IV CONT ×2 (09:41→13:05)
--- NOTE | 2023-08-09 09:48 | WPDURCON ---
Assessment and Plan Assessment and plan (1) Hematuria: Code(s): R31.9 - Hematuria, unspecified Status: Acute Assessment and Plan: Intermittent gross hematuria for several months. Has had negative evaluation with CT urogram and cystoscopy 05/2023. CT a/p reviewed with no acute findings. Hematuria resolved at this time. No indication for acute urologic intervention. Okay to advance diet Hold xarelto. Continue to monitor urine closely (2) Acute urinary tract infection: Code(s): N39.0 - Urinary tract infection, site not specified Status: Acute Assessment and Plan: UA grossly abnormal, concerning for infection. Culture pending at this time. 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 Planning for blood transfusion this am Urology Consult Note HPI Date Seen: 08/09/23 Requesting Physician: Lory Shukla APRN Primary Care Provider: Sammy Rios MD Consult Narrative Narrative: Monroe May is a 67 year old male with a history of AFib on chronic anticoagulation and intermittent gross hematuria who is currently admitted for anemia and is being seen in consultation for gross hematuria. In 05/2023 he had negative evaluation for hematuria with negative CT urogram and cystoscopy that only revealed mild lateral lobe hyperplasia. He states since then, his hematuria had been mild and intermittent until about 1 month ago his urine became dark red, almost black. Denies passage of clots. He saw his PCP and was given a course of antibiotics, he cannot recall what which he completed about 2 weeks ago. No culture obtained that I can see. He reports this did improve his hematuria. His main complaint at this time is a slow, weak stream with dribbling and feeling the need to push/strain to void. He had routine outpatient labs which showed a decline in his hemoglobin to 8.0, therefore he was directed to the ER for further evaluation. Upon arrival, his vital signs were stable, he was afebrile, WBC within normal limits at 7.7, hemoglobin with declined to 6.9, creatinine 0.7, UA with positive nitrites, leukocytes, and WBC. Urine culture is pending at this time. A CT of his abdomen/pelvis was completed which showed no suspicious renal mass, stones, or hydronephrosis, pelvic organs within normal limits, no evidence of clots within the bladder. At the time of my evaluation, the patient is feeling fair. He states that his urine is clear at this time and has no ongoing hematuria. He denies dysuria, urgency, frequency, suprapubic pain, flank pain, or back pain. He does report some mild dizziness and lightheadedness, though notes this is not uncommon for him due to his history of AFib. He is a former smoker, 3 packs per day x20 years, quit 20 years ago. Review of Systems Review of Systems: All systems reviewed & are unremarkable except as noted in HPI and below PMFSH Past Medical History Medical History Arthritis of right knee Benign hypertensive cardiomyopathy with heart failure Chronic anticoagulation Chronic atrial fibrillation Chronic combined systolic and diastolic CHF (congestive heart failure) Controlled diabetes mellitus Former smoker GERD (gastroesophageal reflux disease) HLD (hyperlipidemia) Hypertension Mitral regurgitation Morbid obesity Morbid obesity with BMI of 45.0-49.9, adult Obesity EMMA on CPAP Osteoarthritis Pseudogout Rheumatoid arthritis Surgical History Surgical History H/O cardiac radio
[2023-08-09] MEDS: FOLIC ACID 1 MG TABLET PO (09:49)
[2023-08-09] MEDS: PRAVASTATIN SODIUM 20 MG TABLET 40 MG PO (09:49)
[2023-08-09] MEDS: PANTOPRAZOLE 40 MG TABLET PO (09:49)
[2023-08-09] MEDS: FUROSEMIDE 20 MG TABLET PO (09:50)
[2023-08-09] MEDS: SPIRONOLACTONE 25 MG TABLET PO (09:50)
[2023-08-09] MEDS: HYDROcodone/acetaminophen (*CRX) 5-325 MG TABLET 1 TAB PO ×3 (11:39→22:09)
[2023-08-09 12:12] LABS: Glucose Point of Care 65 mg/dl (65-105)
[2023-08-09 12:40] LABS: Glucose Point of Care 78 mg/dl (65-105)
--- NOTE | 2023-08-09 12:49 | PM.EVENT ---
Event Note Event Note Event Note: Patient had been seen by previous provider same day. Followed up with patient in no acute distress and urine was now clear. UA positive for UTI will increase to 2 gram Rocephin due to outpatient ABX therapy failure. Patient Hgb dropped to 6.9 transfused 2 units PRBC. hypomagnesium and hypokalemia replaced. Patient denied CP, N/v, SOB, or blood in stool but did report dizziness. Occult stool pending will consult GI if possible and continue to hold patient Xarelto at this time. Patient BP improving with IV hydration and PRBC. Urology was consulted and no intervention at this time. Will monitor H&H and transfuse as needed.
[2023-08-09] MEDS: HYDROXYCHLOROQUINE SULFATE 200 MG TABLET 400 MG PO (13:01)
[2023-08-09] MEDS: FUROSEMIDE INJ 40 MG/4 ML VIAL IV PUSH (13:01)
[2023-08-09 17:06] LABS: Glucose Point of Care 81 mg/dl (65-105)
[2023-08-09] MEDS: cefTRIAXone 2 GM/NS 100 ML 2 GM/100 ML BAG IVPB (17:24)
[2023-08-09 20:17] LABS: Hematocrit 28.4 % (42.0-52.0); Hemoglobin 8.9 g/dL (14.0-18.0)
[2023-08-09 23:28] LABS: Glucose Point of Care 95 mg/dl (65-105)
[2023-08-10] VITALS (11 sets, daily range): BP systolic 106–109; BP diastolic 62–74; PULSE 57–97; RESP 18; TEMP 36.4–37; O2SAT 94–100
[2023-08-10 05:22] LABS: Hematocrit 28.9 % (42.0-52.0); Mean Corpuscular HGB Conc 31.1 g/dl (32-36); Mean Corpuscular Hemoglobin 26.1 pg (26-34); Mean Corpuscular Volume 83.8 fl (80-100); Mean Platelet Volume 8.8 fl (7.4-10.4); Platelet Count Result 385 k/mm3 (150-375); Red Blood Count 3.45 M/mm3 (4.6-6.20); Red Cell Distribution Width 17.6 % (11.5-14.5); White Blood Count 7.5 K/mm3 (4.5-10.0)
[2023-08-10] MEDS: HYDROcodone/acetaminophen (*CRX) 5-325 MG TABLET 1 TAB PO ×3 (05:30→20:50)
[2023-08-10 05:42] LABS: Alanine Aminotransferase 9 U/L (6-50); Albumin Level 3.9 g/dL (3.5-5.1); Alkaline Phosphatase 121 U/L (38-126); Anion Gap 10 mmol/L (4-12); Aspartate Amino Transferase 19 U/L (17-59); Bilirubin,Total 0.8 mg/dL (0.2-1.3); Blood Urea Nitrogen 11 mg/dL (9-20); Calcium 8.8 mg/dL (8.4-10.2); Carbon Dioxide 24 mmol/L (22-30); Chloride 99 mmol/L (98-107); Estimated CRCL calculation 132 ml/min; Estimated Glomerular Filt Rate > 60; Glucose 102 mg/dL (65-110); Magnesium 1.5 mg/dL (1.6-2.3); Potassium 3.9 mmol/L (3.4-5.0); Sodium 133 mmol/L (137-145)
--- NOTE | 2023-08-10 08:10 | P.PNIM_ITS ---
Progress Note: A&P Assessment and Plan (1) Hematuria: Code(s): R31.9 - Hematuria, unspecified Status: Acute (2) Acute urinary tract infection: Code(s): N39.0 - Urinary tract infection, site not specified Status: Acute (3) Chronic anticoagulation: Code(s): Z79.01 - retirement (current) use of anticoagulants Status: Acute (4) Blood loss anemia: Code(s): D50.0 - Iron deficiency anemia secondary to blood loss (chronic) Status: Acute (5) Hypomagnesemia: Code(s): E83.42 - Hypomagnesemia Status: Acute (6) Chronic atrial fibrillation: Code(s): I48.20 - Chronic atrial fibrillation, unspecified Status: Acute (7) Hypertension: Code(s): I10 - Essential (primary) hypertension Status: Acute (8) HLD (hyperlipidemia): Code(s): E78.5 - Hyperlipidemia, unspecified Status: Acute (9) EMMA on CPAP: Code(s): G47.33 - Obstructive sleep apnea (adult) (pediatric); Z99.89 - Dependence on other enabling machines and devices Status: Acute (10) GERD (gastroesophageal reflux disease): Code(s): K21.9 - Gastro-esophageal reflux disease without esophagitis Status: Acute (11) Morbid obesity with BMI of 45.0-49.9, adult: Code(s): E66.01 - Morbid (severe) obesity due to excess calories; Z68.42 - Body mass index [BMI] 45.0-49.9, adult Status: Acute (12) Acute on chronic combined systolic and diastolic CHF (congestive heart failure): Code(s): I50.43 - Acute on chronic combined systolic (congestive) and diastolic (congestive) heart failure Status: Acute Plan Anemia secondary to acute blood loss * Acute on chronic iron deficiency anemia and Hematuria * Symptomatic with hypotension and dizziness * Hgb 8.0 POA dropped to 6.9 * 2 units PRBC transfused * occult stool ordered * holding Xarelto * Iron studies * Monitor H&H transfuse if HGB <7.0 Hematuria * Secondary to UTI?? * Urology consulted * recent cysto showed no abnormalities * holding Xarelto Hypotension * secondary to volume loss * IV fluids * 2 untis PRBC transfused UTI * UTI nitrate, leukocytes, and bacteria + Obesity * Grew Staph aureus pending sensitivities * initially in Rocephin added vancomycin * Echo pending to rule out endocarditis * Blood cultures with NGTD Hypomagnesemia * 1.2 POA * replenished * daily mag replenish to keep >2.0 Obesity * encourage increased on physical activity and lifestyle modifications * BMI . * Diet exercise counseling done. * consult to dietitian Diabetes * Accu-Cheks a.c. HS * sliding scale insulin * hold oral diabetic medications * Diabetic diet * consult to dietitian * encourage lifestyle modifications and weight loss * Optimize Alvarado inhibitors and statins. * Watch for hypoglycemia/hypoglycemic protocol ordered Chronic combined systolic and diastolic CHF * Previous echo combined dysfunction EF 54% * echocardiogram pending * EKG SR * Give IV lasix between Units of blood otherwise stable CHF resumed PO lasix * chest x-ray no acute cardiopulmonary findings * Antiplatelet therapy, statin therapy, loop diuretics as indicated,. * Optimize blood pressure less than 130/80. * Fall risk assessment. HX AFIB: Holding Xarelto HX HLD: Resumed statin HX GERD: PPI HX EMMA: CPAP Code status: Full code per patient DVT prophylaxis: SCD's anemia Stress ulcer prophylaxis: Prot
--- NOTE | 2023-08-10 08:10 | PM.IMPN ---
Progress Note: A&P Assessment and Plan (1) Hematuria: Code(s): R31.9 - Hematuria, unspecified Status: Acute (2) Acute urinary tract infection: Code(s): N39.0 - Urinary tract infection, site not specified Status: Acute (3) Chronic anticoagulation: Code(s): Z79.01 - snf (current) use of anticoagulants Status: Acute (4) Blood loss anemia: Code(s): D50.0 - Iron deficiency anemia secondary to blood loss (chronic) Status: Acute (5) Hypomagnesemia: Code(s): E83.42 - Hypomagnesemia Status: Acute (6) Chronic atrial fibrillation: Code(s): I48.20 - Chronic atrial fibrillation, unspecified Status: Acute (7) Hypertension: Code(s): I10 - Essential (primary) hypertension Status: Acute (8) HLD (hyperlipidemia): Code(s): E78.5 - Hyperlipidemia, unspecified Status: Acute (9) EMMA on CPAP: Code(s): G47.33 - Obstructive sleep apnea (adult) (pediatric); Z99.89 - Dependence on other enabling machines and devices Status: Acute (10) GERD (gastroesophageal reflux disease): Code(s): K21.9 - Gastro-esophageal reflux disease without esophagitis Status: Acute (11) Morbid obesity with BMI of 45.0-49.9, adult: Code(s): E66.01 - Morbid (severe) obesity due to excess calories; Z68.42 - Body mass index [BMI] 45.0-49.9, adult Status: Acute (12) Acute on chronic combined systolic and diastolic CHF (congestive heart failure): Code(s): I50.43 - Acute on chronic combined systolic (congestive) and diastolic (congestive) heart failure Status: Acute Plan Anemia secondary to acute blood loss Acute on chronic iron deficiency anemia and Hematuria Symptomatic with hypotension and dizziness Hgb 8.0 POA dropped to 6.9 2 units PRBC transfused occult stool ordered holding Xarelto Iron studies Monitor H&H transfuse if HGB <7.0 Hematuria Secondary to UTI?? Urology consulted recent cysto showed no abnormalities holding Xarelto Hypotension secondary to volume loss IV fluids 2 untis PRBC transfused UTI UTI nitrate, leukocytes, and bacteria + Obesity Grew Staph aureus pending sensitivities initially in Rocephin added vancomycin Echo pending to rule out endocarditis Blood cultures with NGTD Hypomagnesemia 1.2 POA replenished daily mag replenish to keep >2.0 Obesity encourage increased on physical activity and lifestyle modifications BMI . Diet exercise counseling done. consult to dietitian Diabetes Accu-Cheks a.c. HS sliding scale insulin hold oral diabetic medications Diabetic diet consult to dietitian encourage lifestyle modifications and weight loss Optimize Alvarado inhibitors and statins. Watch for hypoglycemia/hypoglycemic protocol ordered Chronic combined systolic and diastolic CHF Previous echo combined dysfunction EF 54% echocardiogram pending EKG SR Give IV lasix between Units of blood otherwise stable CHF resumed PO lasix chest x-ray no acute cardiopulmonary findings Antiplatelet therapy, statin therapy, loop diuretics as indicated,. Optimize blood pressure less than 130/80. Fall risk assessment. HX AFIB: Holding Xarelto HX HLD: Resumed statin HX GERD: PPI HX EMMA: CPAP Code status: Full code per patient DVT prophylaxis: SCD's anemia Stress ulcer prophylaxis: Protonix 40 daily PT/OT notes: Disposition: Patient was admitted for acute blood loss anemia, blood transfusion, hypotension, hematuria and UTI with Staph aureus growing. Blood cultures currently NGTD will continue with current treatment plan pending Echo, sensitivities, and monitor H&H to determine possible cause of blood loss. Time Spent With Patient Time with patient: 15 - 25 minutes Subjective Date/time seen: 08/10/23 08:10 Interval history: Admission: Medical Record This is a very pleasant 67-year-old male wi
[2023-08-10 08:28] LABS: Glucose Point of Care 100 mg/dl (65-105)
[2023-08-10] MEDS: MAGNESIUM SULF 2 GM/WATER 50ML 2 GM/50 ML BAG IVPB (08:45)
[2023-08-10] MEDS: PANTOPRAZOLE 40 MG TABLET PO (08:47)
[2023-08-10] MEDS: FUROSEMIDE 20 MG TABLET PO (08:47)
[2023-08-10] MEDS: PRAVASTATIN SODIUM 20 MG TABLET 40 MG PO (08:47)
[2023-08-10] MEDS: SPIRONOLACTONE 25 MG TABLET PO (08:47)
[2023-08-10] MEDS: HYDROXYCHLOROQUINE SULFATE 200 MG TABLET 400 MG PO (08:47)
[2023-08-10] MEDS: FOLIC ACID 1 MG TABLET PO (08:47)
[2023-08-10] MEDS: METOPROLOL TARTRATE 50 MG TAB 100 MG PO ×2 (08:47→20:50)
[2023-08-10] MEDS: VANCOMYCIN 1,750 MG/NS 500 ML 1,750 MG/500 ML BAG 250 MG IVPB (08:55)
[2023-08-10] MEDS: LINEZOLID 600 MG TABLET PO ×2 (10:31→20:50)
[2023-08-10 11:56] LABS: Glucose Point of Care 118 mg/dl (65-105)
[2023-08-10 17:54] LABS: Glucose Point of Care 96 mg/dl (65-105)
[2023-08-10 21:42] LABS: Glucose Point of Care 113 mg/dl (65-105)
[2023-08-11] VITALS (12 sets, daily range): BP systolic 88–120; BP diastolic 65–75; PULSE 61–95; RESP 16–20; TEMP 36.3–36.9; O2SAT 97–100
--- NOTE | 2023-08-11 | ECHO_ITS ---
Patient Info Name: Monroe May Age: 67 years : 1955 Gender: Male Ht: 71 in Wt: 252 lbs BSA: 2.43 m2 HR: 77 bpm BP: 93 / 65 mmHg Heart Rhythm: Atrial Fibrillation Technical Quality: Fair Exam Date: 08/11/2023 7:59 AM Exam Location: Echo Lab Patient Status: Inpatient Admit Date: 08/09/2023 Staff Ordering Physician: Lory Shukla APRN Computer Field Technician: Mitch Beckford RDCS Attending Provider: Lory Shukla APRN Referring Physician: Vazquez TELLES; Exam Type: CA echo doppler color flow Study Info Indications I39 - Endocarditis and heart valve disorders in diseases classified elsewhere Complete two-dimensional, color flow and Doppler transthoracic echocardiogram is performed. Summary 1. Complete two-dimensional, color flow and Doppler transthoracic echocardiogram is performed. 2. Normal left ventricular size and systolic function. 3. Moderate biatrial dilation. 4. Mildly sclerotic aortic valve with well maintained leaflet excursion. 5. Small amounts of mitral, tricuspid and pulmonic regurgitation. 6. Atrial fibrillation. 7. No findings suspicious for infective vegetation. Left Ventricle Left ventricular chamber dimension is normal. Left ventricular systolic function is normal, estimated at 60-65%. The left ventricular diastolic function is indeterminate. Right Ventricle Right ventricular chamber dimension is normal. Left Atria Left atrial chamber dimension is moderately enlarged. Right Atria Right atrial chamber dimension is moderately enlarged. Aortic Valve The aortic valve is trileaflet. There is mild aortic valve sclerosis. Pulmonic Valve The pulmonic valve is normal. There is trace pulmonic regurgitation. Mitral Valve The mitral valve has normal leaflets. There is mild mitral valve regurgitation. Tricuspid Valve The tricuspid valve leaflets are normal. There is mild tricuspid valve regurgitation. Pericardium/Pleural The pericardium appears normal. Aorta The aortic root size at the sinus of Valsalva is normal. Left Ventricular Outflow Tract Name Value Normal LVOT 2D LVOT Diameter 2.0 cm LVOT Doppler LVOT Peak Gradient 4 mmHg LVOT Mean Gradient 2 mmHg LVOT VTI 20 cm LVOT VTI/AV VTI Ratio 0.8 LVOT Stroke Volume 64 ml LVOT CO 4.9 l/min LVOT CI 2.0 l/min/m2 Pulmonic Valve Name Value Normal RVOT Doppler RVOT Peak Gradient 3 mmHg PV Doppler PV Peak Gradient 2 mmHg PV Regurgitation Doppler KS Peak End Diastolic Velocity 115 cm/s Mitral Valve
[2023-08-11] MEDS: HYDROcodone/acetaminophen (*CRX) 5-325 MG TABLET 1 TAB PO ×3 (00:52→21:09)
[2023-08-11 06:04] LABS: Hematocrit 24.1 % (42.0-52.0); Hemoglobin 7.6 g/dL (14.0-18.0); Mean Corpuscular HGB Conc 31.5 g/dl (32-36); Mean Corpuscular Hemoglobin 26.4 pg (26-34); Mean Corpuscular Volume 83.7 fl (80-100); Mean Platelet Volume 8.9 fl (7.4-10.4); Platelet Count Result 340 k/mm3 (150-375); Red Blood Count 2.88 M/mm3 (4.6-6.20); Red Cell Distribution Width 17.7 % (11.5-14.5); White Blood Count 7.8 K/mm3 (4.5-10.0)
[2023-08-11 06:21] LABS: Alanine Aminotransferase 6 U/L (6-50); Albumin Level 3.3 g/dL (3.5-5.1); Alkaline Phosphatase 109 U/L (38-126); Anion Gap 7 mmol/L (4-12); Aspartate Amino Transferase 16 U/L (17-59); Bilirubin,Total 0.6 mg/dL (0.2-1.3); Blood Urea Nitrogen 6 mg/dL (9-20); Calcium 8.5 mg/dL (8.4-10.2); Carbon Dioxide 24 mmol/L (22-30); Chloride 99 mmol/L (98-107); Estimated CRCL calculation 132 ml/min; Estimated Glomerular Filt Rate > 60; Glucose 101 mg/dL (65-110); Potassium 3.6 mmol/L (3.4-5.0); Sodium 130 mmol/L (137-145)
[2023-08-11 08:37] LABS: Glucose Point of Care 105 mg/dl (65-105)
[2023-08-11] MEDS: METOPROLOL TARTRATE 50 MG TAB 100 MG PO ×2 (08:59→21:09)
[2023-08-11] MEDS: PRAVASTATIN SODIUM 20 MG TABLET 40 MG PO (08:59)
[2023-08-11] MEDS: FUROSEMIDE 20 MG TABLET PO (08:59)
[2023-08-11] MEDS: LINEZOLID 600 MG TABLET PO ×2 (08:59→21:09)
[2023-08-11] MEDS: SPIRONOLACTONE 25 MG TABLET PO (08:59)
[2023-08-11] MEDS: HYDROXYCHLOROQUINE SULFATE 200 MG TABLET 400 MG PO (08:59)
[2023-08-11] MEDS: FOLIC ACID 1 MG TABLET PO (08:59)
[2023-08-11] MEDS: PANTOPRAZOLE 40 MG TABLET PO (08:59)
--- NOTE | 2023-08-11 09:41 | WPDUROPN2 ---
Progress Note: A&P Assessment and Plan (1) Hematuria: Code(s): R31.9 - Hematuria, unspecified Status: Acute Assessment and Plan: Intermittent gross hematuria for several months. Has had negative evaluation with CT urogram and cystoscopy 05/2023. CT a/p reviewed with no acute findings. Hematuria resolved at this time. Likely had recurrence due to UTI. No indication for acute urologic intervention at this time. (2) Acute urinary tract infection: Code(s): N39.0 - Urinary tract infection, site not specified Status: Acute Assessment and Plan: Preliminary urine culture with growth of Staph aureus, susceptibilities pending. Currently on linezolid. Await final culture results and tailor antibiotics accordingly (3) Chronic anticoagulation: Code(s): Z79.01 - long-term (current) use of anticoagulants Status: Acute Assessment and Plan: Xarelto on hold due to anemia (4) Blood loss anemia: Code(s): D50.0 - Iron deficiency anemia secondary to blood loss (chronic) Status: Acute Assessment and Plan: Decline in hemoglobin to 6.9 on admission. Has not received 2 units of blood. Monitor H&H. Not felt to be related to urologic source as urine remains crystal clear Subjective Subjective Date/Time Seen: 08/11/23 09:41 Interval history: Doing well overall today. Complains of body aches and pains due to arthritis. He is voiding without any difficulty. Urine remains crystal clear. Denies dysuria. Denies suprapubic pain, flank pain, nausea, vomiting, fever, or chills. Review of Systems Review of Systems: All systems reviewed & are unremarkable except as noted in HPI and below Exam Narrative: General: Awake, alert, comfortable, no acute distress HEENT: Normocephalic, atraumatic, sclerae anicteric Respiratory: Normal respiratory effort, no accessory muscle use Abdomen: Nondistended, soft, nontender : Urine in urinal at bedside is clear yellow Skin: Normal coloration, warm and dry Neurologic: No focal neuro deficits noted Psychiatric: Appropriate mood and affect, judgment and insight intact Objective Data Vital Signs Vital Signs: Vital Signs - 24 hr 08/10/23 12:05 08/10/23 13:56 08/10/23 16:04 Temperature 98.0 F Pulse Rate 75 57 L 79 Respiratory Rate 18 Blood Pressure 106/66 Pulse Oximetry 94 Oxygen Delivery Fraction of Inspired Oxygen 08/10/23 20:44 08/10/23 20:50 08/10/23 20:00 Temperature 97.5 F L Pulse Rate 84 84 86 Respiratory Rate 18 Blood Pressure 109/62 Pulse Oximetry 100 Oxygen Delivery Fraction of Inspired Oxygen 08/10/23 20:00 08/11/23 00:00 08/11/23 04:00 Temperature Pulse Rate 84 83 94 Respiratory Rate 18 Blood Pressure Pulse Oximetry 100 Oxygen Delivery Room Air Fraction of Inspired Oxygen 08/11/23 05:42 08/11/23 08:59 08/11/23 09:02 Temperature 97.5 F L Pulse Rate 77 92 Respiratory Rate 16 Blood Pressure 93/65 L Pulse Oximetry 97 99 Oxygen Delivery Room Air Fraction of Inspired Oxygen 21 Intake/Output Intake/Output: Intake & Output 08/08/23 08/09/23 08/10/23 08/11/23 23:59 23:59 23:59 23:59 Intake Total 1100 3005 2120 1770 Output Total 2900 1300 1350 Balance 1100 105 820 420 Meds/Results Medications: Active Medications Generic Name Dose Route Start Last Admin Trade Name Freq PRN Reason Stop Dose Admin Acetaminophen 650 mg 08/09/23 04:06 08/09/23 04:23 Acetaminophen 325 Mg Tablet PO 650 mg Q6H PRN Administration Mild Pain (1-3) or Fever Hydrocodone Bitart/Acetaminophen 1 tab 08/09/23 10:35 08/11/23 00:52 Hydrocodone/Acetaminophen (*Crx) 5-325 Mg Tablet PO 1 tab Q4H PRN Administration Pain Rated 6 or Greater Dextrose 12.5 gm 08/09/23 03:24 Dextrose 50% 25 Gm/50 Ml Syringe IV PUSH PRN PRN Hypoglycemia Protocol Folic Acid 1 mg 08/09/23 09:00 07
[2023-08-11] MEDS: LACTULOSE 20 GM/30 ML UDC PO (11:56)
[2023-08-11 11:57] LABS: Glucose Point of Care 99 mg/dl (65-105)
--- NOTE | 2023-08-11 12:09 | P.PNIM_ITS ---
Progress Note: A&P Assessment and Plan (1) Hematuria: Code(s): R31.9 - Hematuria, unspecified Status: Acute (2) Acute urinary tract infection: Code(s): N39.0 - Urinary tract infection, site not specified Status: Acute (3) Chronic anticoagulation: Code(s): Z79.01 - FPC (current) use of anticoagulants Status: Acute (4) Blood loss anemia: Code(s): D50.0 - Iron deficiency anemia secondary to blood loss (chronic) Status: Acute (5) Hypomagnesemia: Code(s): E83.42 - Hypomagnesemia Status: Acute (6) Chronic atrial fibrillation: Code(s): I48.20 - Chronic atrial fibrillation, unspecified Status: Acute (7) Hypertension: Code(s): I10 - Essential (primary) hypertension Status: Acute (8) HLD (hyperlipidemia): Code(s): E78.5 - Hyperlipidemia, unspecified Status: Acute (9) EMMA on CPAP: Code(s): G47.33 - Obstructive sleep apnea (adult) (pediatric); Z99.89 - Dependence on other enabling machines and devices Status: Acute (10) GERD (gastroesophageal reflux disease): Code(s): K21.9 - Gastro-esophageal reflux disease without esophagitis Status: Acute (11) Morbid obesity with BMI of 45.0-49.9, adult: Code(s): E66.01 - Morbid (severe) obesity due to excess calories; Z68.42 - Body mass index [BMI] 45.0-49.9, adult Status: Acute (12) Acute on chronic combined systolic and diastolic CHF (congestive heart failure): Code(s): I50.43 - Acute on chronic combined systolic (congestive) and diastolic (congestive) heart failure Status: Acute Plan Anemia secondary to acute blood loss * Acute on chronic iron deficiency anemia VS Hematuria Vs GI bleed * Symptomatic with hypotension and dizziness * Hgb 8.0 POA dropped to 6.9 * 2 units PRBC transfused * occult stool ordered * holding Xarelto * Iron studies * Monitor H&H transfuse if HGB <7.0 08/11/2023 * HGb drop almost 2 points overnight * No stool for occult * Previous HX of NSAIDS and blood thinners * Ferritin * GI consulted for possible GI bleed Hematuria-RESOLVED * Secondary to UTI?? * Urology consulted * recent cysto showed no abnormalities * holding Xarelto Hypotension * secondary to volume loss * IV fluids * 2 untis PRBC transfused UTI * UTI nitrate, leukocytes, and bacteria + Obesity * Grew Staph aureus pending sensitivities * initially in Rocephin added vancomycin * Echo pending to rule out endocarditis * Blood cultures with NGTD Hypomagnesemia * 1.2 POA * replenished * daily mag replenish to keep >2.0 Obesity * encourage increased on physical activity and lifestyle modifications * BMI . * Diet exercise counseling done. * consult to dietitian Diabetes * Accu-Cheks a.c. HS * sliding scale insulin * hold oral diabetic medications * Diabetic diet * consult to dietitian * encourage lifestyle modifications and weight loss * Optimize Alvarado inhibitors and statins. * Watch for hypoglycemia/hypoglycemic protocol ordered Chronic combined systolic and diastolic CHF * Previous echo combined dysfunction EF 54% * echocardiogram pending * EKG SR * Give IV lasix between Units of blood otherwise stable CHF resumed PO lasix * chest x-ray no acute cardiopulmonary findings * Antiplatelet therapy, statin therapy, loop diuretics as indicated,. * Optimize blood pressure less than 130/80. * Fall risk assessment. Osteoarthritis * Holding methotrexa
--- NOTE | 2023-08-11 12:09 | PM.IMPN ---
Progress Note: A&P Assessment and Plan (1) Hematuria: Code(s): R31.9 - Hematuria, unspecified Status: Acute (2) Acute urinary tract infection: Code(s): N39.0 - Urinary tract infection, site not specified Status: Acute (3) Chronic anticoagulation: Code(s): Z79.01 - halfway (current) use of anticoagulants Status: Acute (4) Blood loss anemia: Code(s): D50.0 - Iron deficiency anemia secondary to blood loss (chronic) Status: Acute (5) Hypomagnesemia: Code(s): E83.42 - Hypomagnesemia Status: Acute (6) Chronic atrial fibrillation: Code(s): I48.20 - Chronic atrial fibrillation, unspecified Status: Acute (7) Hypertension: Code(s): I10 - Essential (primary) hypertension Status: Acute (8) HLD (hyperlipidemia): Code(s): E78.5 - Hyperlipidemia, unspecified Status: Acute (9) EMMA on CPAP: Code(s): G47.33 - Obstructive sleep apnea (adult) (pediatric); Z99.89 - Dependence on other enabling machines and devices Status: Acute (10) GERD (gastroesophageal reflux disease): Code(s): K21.9 - Gastro-esophageal reflux disease without esophagitis Status: Acute (11) Morbid obesity with BMI of 45.0-49.9, adult: Code(s): E66.01 - Morbid (severe) obesity due to excess calories; Z68.42 - Body mass index [BMI] 45.0-49.9, adult Status: Acute (12) Acute on chronic combined systolic and diastolic CHF (congestive heart failure): Code(s): I50.43 - Acute on chronic combined systolic (congestive) and diastolic (congestive) heart failure Status: Acute Plan Anemia secondary to acute blood loss Acute on chronic iron deficiency anemia VS Hematuria Vs GI bleed Symptomatic with hypotension and dizziness Hgb 8.0 POA dropped to 6.9 2 units PRBC transfused occult stool ordered holding Xarelto Iron studies Monitor H&H transfuse if HGB <7.0 08/11/2023 HGb drop almost 2 points overnight No stool for occult Previous HX of NSAIDS and blood thinners Ferritin GI consulted for possible GI bleed Hematuria-RESOLVED Secondary to UTI?? Urology consulted recent cysto showed no abnormalities holding Xarelto Hypotension secondary to volume loss IV fluids 2 untis PRBC transfused UTI UTI nitrate, leukocytes, and bacteria + Obesity Grew Staph aureus pending sensitivities initially in Rocephin added vancomycin Echo pending to rule out endocarditis Blood cultures with NGTD Hypomagnesemia 1.2 POA replenished daily mag replenish to keep >2.0 Obesity encourage increased on physical activity and lifestyle modifications BMI . Diet exercise counseling done. consult to dietitian Diabetes Accu-Cheks a.c. HS sliding scale insulin hold oral diabetic medications Diabetic diet consult to dietitian encourage lifestyle modifications and weight loss Optimize Alvarado inhibitors and statins. Watch for hypoglycemia/hypoglycemic protocol ordered Chronic combined systolic and diastolic CHF Previous echo combined dysfunction EF 54% echocardiogram pending EKG SR Give IV lasix between Units of blood otherwise stable CHF resumed PO lasix chest x-ray no acute cardiopulmonary findings Antiplatelet therapy, statin therapy, loop diuretics as indicated,. Optimize blood pressure less than 130/80. Fall risk assessment. Osteoarthritis Holding methotrexate Patient reporting severe pain we will give low-dose steroid for flare up HX AFIB: Holding Xarelto HX HLD: Resumed statin HX GERD: PPI HX EMMA: CPAP Code status: Full code per patient DVT prophylaxis: SCD's anemia Stress ulcer prophylaxis: Protonix 40 daily PT/OT notes: Disposition: Patient was admitted for acute blood loss anemia, blood transfusion, hypotension, hematuria and UTI with Staph aureus growing. Blood cultures currently NGTD will continue with current treatment plan pending Echo,
[2023-08-11 13:42] LABS: Hematocrit 26.3 % (42.0-52.0); Hemoglobin 8.3 g/dL (14.0-18.0)
--- NOTE | 2023-08-11 14:37 | WPDGICN ---
Assessment and Plan Assessment and plan (1) Acute on chronic anemia: Code(s): D64.9 - Anemia, unspecified Status: Acute Assessment and Plan: no overt gib, if anything probably slow bleed, no urgency to do scopes and last colonoscopy less than 2 year ago if patient is still here, we can do egd/colonoscopy on Monday otherwise as outpatient other risk factors- anticoagulation but on hold, also intermittent hematuria but urological evaluation negative, ? medication (MTX and plaquenil)- if GI work up negative then recommend to see hematology (2) Hematuria: Code(s): R31.9 - Hematuria, unspecified Status: Acute Assessment and Plan: by urology (3) Chronic anticoagulation: Code(s): Z79.01 - correction (current) use of anticoagulants Status: Acute Assessment and Plan: on hold (4) Acute urinary tract infection: Code(s): N39.0 - Urinary tract infection, site not specified Status: Acute Assessment and Plan: on abx (5) Acute on chronic combined systolic and diastolic CHF (congestive heart failure): Code(s): I50.43 - Acute on chronic combined systolic (congestive) and diastolic (congestive) heart failure Status: Acute (6) Rheumatoid arthritis: Code(s): M06.9 - Rheumatoid arthritis, unspecified Status: Acute GI Consult Note Consult date/time: 08/11/23 14:37 Reason for consult: acute chronic anemia HPI: Monroe May is a 67 year old male with medical history of [id number] diabetes mellitus, hypertension, paroxysmal AFib on Xarelto, heart failure preserved ejection fraction, EMMA on CPAP, rheumatoid arthritis on plaquenil and MTX (MY +, elevated CCP), obesity, severe osteoarthritis of the bilateral lower extremities. Had recent evaluation by PCP and noted to have anemia then repeated even lower and advised to go to ER, also noted intermittent hematuria and had urological evaluation, denies any overt gib. He has been seen by Dr. King, had cystoscopy and CT abdomen pelvis without any abnormal findings. ER evaluation on admission WBC 7700, hemoglobin 8 but then down to 6.9 and given blood transfusion. The last hemoglobin 12.9 in February of 2022. INR 1.6. BNP 0, CRP 6.4. Diagnosed with possible UTI on abx, CT abdomen pelvis without contrast not demonstrate acute abdominal pelvic process. Last colonoscopy [address] Avila, only diverticulosis. No EGD. He is comfortable now and breathing better after transfusion. Review of Systems Constitutional: Constitutional: Reports fatigue Eyes: Eyes: Denies blurry vision ENT: Reports Normal hearing present Cardiovascular: Cardiovascular: Denies chest pain Respiratory: Respiratory: Reports dyspnea on exertion Gastrointestinal: Gastrointestinal: Denies abdominal pain, Denies hematochezia and Denies nausea Genitourinary: Comments: uti Musculoskeletal: Musculoskeletal: Reports arthralgias Integumentary/Breasts: Skin/Breast: Denies rash Neurologic: Denies confusion Psychiatric: Psychiatric: Denies behavioral changes [facility] Past Medical History Medical History (Updated 08/11/23 @ 14:42 by Yasir Camarena MD) Acute on chronic anemia Arthritis of right knee Benign hypertensive cardiomyopathy with heart failure Chronic anticoagulation Chronic atrial fibrillation Chronic combined systolic and diastolic CHF (congestive heart failure) Controlled diabetes mellitus Former smoker GERD (gastroesophageal reflux disease) HLD (hyperlipidemia) Hypertension Mitral regurgitation Morbid obesity Morbid obesity with BMI of 45.0-49.9, adult Obesity EMMA on CPAP Osteoarthritis Pseudogout Rheumatoid arthritis Surgical History Surgical History H/O cardiac radiofrequency ablation For treatment of AFIB without relief. History of colonoscopy 12/[address] Avila and found a small polyp that was removed and
[2023-08-11 17:12] LABS: Glucose Point of Care 92 mg/dl (65-105)
[2023-08-11] MEDS: predniSONE 10 MG TABLET 40 MG PO (17:12)
[2023-08-11 20:49] LABS: Glucose Point of Care 116 mg/dl (65-105)
[2023-08-12] VITALS (10 sets, daily range): BP systolic 106–116; BP diastolic 64–80; PULSE 68–89; RESP 18–20; TEMP 36.4–36.6; O2SAT 97–100
[2023-08-12 05:31] LABS: Hematocrit 25.6 % (42.0-52.0); Hemoglobin 7.9 g/dL (14.0-18.0); Mean Corpuscular HGB Conc 30.9 g/dl (32-36); Mean Corpuscular Hemoglobin 26.9 pg (26-34); Mean Corpuscular Volume 87.1 fl (80-100); Mean Platelet Volume 9.1 fl (7.4-10.4); Platelet Count Result 352 k/mm3 (150-375); Red Blood Count 2.94 M/mm3 (4.6-6.20); Red Cell Distribution Width 17.6 % (11.5-14.5); White Blood Count 7.3 K/mm3 (4.5-10.0)
[2023-08-12 05:43] LABS: Alanine Aminotransferase 9 U/L (6-50); Albumin Level 3.5 g/dL (3.5-5.1); Alkaline Phosphatase 114 U/L (38-126); Anion Gap 9 mmol/L (4-12); Aspartate Amino Transferase 16 U/L (17-59); Bilirubin,Total 0.6 mg/dL (0.2-1.3); Blood Urea Nitrogen 8 mg/dL (9-20); Calcium 8.6 mg/dL (8.4-10.2); Carbon Dioxide 22 mmol/L (22-30); Chloride 97 mmol/L (98-107); Estimated CRCL calculation 132 ml/min; Estimated Glomerular Filt Rate > 60; Glucose 148 mg/dL (65-110); Sodium 128 mmol/L (137-145)
[2023-08-12 06:00] LABS: IFOB Positive Control Positive; Immunochemical Fecal Occult Bl Negative (N)
[2023-08-12 08:27] LABS: Glucose Point of Care 118 mg/dl (65-105)
[2023-08-12] MEDS: SPIRONOLACTONE 25 MG TABLET PO (08:47)
[2023-08-12] MEDS: predniSONE 10 MG TABLET 40 MG PO (08:47)
[2023-08-12] MEDS: HYDROXYCHLOROQUINE SULFATE 200 MG TABLET 400 MG PO (08:48)
[2023-08-12] MEDS: SODIUM CHLORIDE 0.9% IV 500 ML IV CONT (08:48)
[2023-08-12] MEDS: METOPROLOL TARTRATE 50 MG TAB 100 MG PO ×2 (08:48→20:26)
[2023-08-12] MEDS: PANTOPRAZOLE 40 MG TABLET PO (08:48)
[2023-08-12] MEDS: FUROSEMIDE 20 MG TABLET PO (08:48)
[2023-08-12] MEDS: LINEZOLID 600 MG TABLET PO ×2 (08:48→20:26)
[2023-08-12] MEDS: FOLIC ACID 1 MG TABLET PO (08:48)
[2023-08-12] MEDS: PRAVASTATIN SODIUM 20 MG TABLET 40 MG PO (08:48)
--- NOTE | 2023-08-12 11:30 | WPDGIPROGNO ---
Progress Note: A&P Assessment and Plan (1) Acute on chronic anemia: Code(s): D64.9 - Anemia, unspecified Status: Acute Assessment and Plan: occult blood in stool negative but we can assess with egd/colonoscopy Monday to see if any gi source to explain anemia could be multifactorial blood thinner on hold now also had h/o intermittent hematuria, already evaluated by urology (2) Acute urinary tract infection: Code(s): N39.0 - Urinary tract infection, site not specified Status: Acute (3) Chronic anticoagulation: Code(s): Z79.01 - extermination supervisor (current) use of anticoagulants Status: Acute (4) Urinary tract infection: Code(s): N39.0 - Urinary tract infection, site not specified Status: Acute (5) EMMA on CPAP: Code(s): G47.33 - Obstructive sleep apnea (adult) (pediatric); Z99.89 - Dependence on other enabling machines and devices Status: Acute (6) Morbid obesity with BMI of 45.0-49.9, adult: Code(s): E66.01 - Morbid (severe) obesity due to excess calories; Z68.42 - Body mass index [BMI] 45.0-49.9, adult Status: Acute Subjective Date/time seen: 08/12/23 11:30 Interval history: no overt gib, no changes, he is comfortable Review of Systems Review of Systems: All systems reviewed & are unremarkable except as noted in HPI and below Exam Const: General: comfortable and no acute distress Other: A&O x3. Obese. HENMT: Face/Nose/Sinus: Normal nares present Eyes: Pupils: Equal, round and reactive pupils present Neck: Neck: supple Resp: Effort & Inspection: normal respiratory effort Auscultation: clear to auscultation bilaterally Cardio: Rate: regular rate Rhythm: abnormal rhythm Heart sounds: no gallops GI: GI Palp: Yes Soft to palpation, No Tenderness to palpation present (GI) and No Guarding due to palpation present (GI) Auscultation: normal bowel sounds Skin: General skin exam: no rashes or lesions noted Neuro: Speech: normal speech Motor exam (neuro): 5/5 motor strength present throughout Extrem: General: edema (Pedal edema bilaterally. Lipodermatosclerosis to the bilateral lower extre) Psych: Affect: normal affect Objective Data Vital Signs Vital Signs: Vital Signs - 24 hr 08/11/23 12:00 08/11/23 15:05 08/11/23 20:00 Temperature 97.3 F L Pulse Rate 82 83 83 Respiratory Rate 18 18 Blood Pressure 103/65 Pulse Oximetry 100 100 Oxygen Delivery Room Air Fraction of Inspired Oxygen 21 08/11/23 21:01 08/11/23 21:09 08/11/23 20:00 Temperature 98.4 F Pulse Rate 61 86 81 Respiratory Rate 20 Blood Pressure 88/66 L Pulse Oximetry 99 Oxygen Delivery Fraction of Inspired Oxygen 08/12/23 00:00 08/12/23 04:00 08/12/23 06:00 Temperature 97.7 F Pulse Rate 82 68 82 Respiratory Rate 20 Blood Pressure 113/80 Pulse Oximetry 97 Oxygen Delivery Fraction of Inspired Oxygen 08/12/23 08:48 08/12/23 08:48 08/12/23 08:00 Temperature Pulse Rate 80 69 Respiratory Rate Blood Pressure Pulse Oximetry Oxygen Delivery Room Air Fraction of Inspired Oxygen Intake/Output Intake/Output: Intake & Output 08/09/23 08/10/23 08/11/23 08/12/23 23:59 23:59 23:59 23:59 Intake Total 3005 2120 2610 1680 Output Total 2900 1300 2775 800 Balance 105 820 -165 880 Meds/Results Medications: Active Medications Generic Name Dose Route Start Last Admin Trade Name Freq PRN Reason Stop Dose Admin Acetaminophen 650 mg 08/09/23 04:06 08/09/23 04:23 Acetaminophen 325 Mg Tablet PO 650 mg Q6H PRN Administration Mild Pain (1-3) or Fever Hydrocodone Bitart/Acetaminophen 1 tab 08/09/23 10:35 08/11/23 21:09 Hydrocodone/Acetaminophen (*Crx) 5-325 Mg Tablet PO 1 tab Q4H PRN Administration Pain Rated 6 or Greater Dextrose 12.5 gm 08/09/23 03:24 Dextrose 50% 25 Gm/50 Ml Syringe IV PUSH PRN PRN Hypoglycemia Protocol Folic
[2023-08-12 12:05] LABS: Glucose Point of Care 153 mg/dl (65-105)
--- NOTE | 2023-08-12 13:08 | P.PNIM_ITS ---
Progress Note: A&P Assessment and Plan (1) Hematuria: Code(s): R31.9 - Hematuria, unspecified Status: Acute (2) Acute urinary tract infection: Code(s): N39.0 - Urinary tract infection, site not specified Status: Acute (3) Chronic anticoagulation: Code(s): Z79.01 - half-way (current) use of anticoagulants Status: Acute (4) Blood loss anemia: Code(s): D50.0 - Iron deficiency anemia secondary to blood loss (chronic) Status: Acute (5) Hypomagnesemia: Code(s): E83.42 - Hypomagnesemia Status: Acute (6) Chronic atrial fibrillation: Code(s): I48.20 - Chronic atrial fibrillation, unspecified Status: Acute (7) Hypertension: Code(s): I10 - Essential (primary) hypertension Status: Acute (8) HLD (hyperlipidemia): Code(s): E78.5 - Hyperlipidemia, unspecified Status: Acute (9) EMMA on CPAP: Code(s): G47.33 - Obstructive sleep apnea (adult) (pediatric); Z99.89 - Dependence on other enabling machines and devices Status: Acute (10) GERD (gastroesophageal reflux disease): Code(s): K21.9 - Gastro-esophageal reflux disease without esophagitis Status: Acute (11) Morbid obesity with BMI of 45.0-49.9, adult: Code(s): E66.01 - Morbid (severe) obesity due to excess calories; Z68.42 - Body mass index [BMI] 45.0-49.9, adult Status: Acute (12) Acute on chronic combined systolic and diastolic CHF (congestive heart failure): Code(s): I50.43 - Acute on chronic combined systolic (congestive) and diastolic (congestive) heart failure Status: Acute Plan Anemia secondary to acute blood loss * Acute on chronic iron deficiency anemia VS Hematuria Vs GI bleed * Symptomatic with hypotension and dizziness * Hgb 8.0 POA dropped to 6.9 * 2 units PRBC transfused * occult stool ordered * holding Xarelto * Iron studies * Monitor H&H transfuse if HGB <7.0 08/11/2023 * HGb drop almost 2 points overnight * No stool for occult * Previous HX of NSAIDS and blood thinners * Ferritin * GI consulted for possible GI bleed 08/12/2023: * Plan for EGD 08/14/2023 * HGB still trending down * Occult stool negative Hematuria-RESOLVED * Secondary to UTI?? * Urology consulted * recent cysto showed no abnormalities * holding Xarelto Hypotension * secondary to volume loss * IV fluids * 2 untis PRBC transfused UTI * UTI nitrate, leukocytes, and bacteria + Obesity * Grew Staph aureus pending sensitivities * initially in Rocephin added vancomycin * Echo pending to rule out endocarditis * Blood cultures with NGTD 08/12/2023: * Echo no evidence of vegetation Hypomagnesemia * 1.2 POA * replenished * daily mag replenish to keep >2.0 Obesity * encourage increased on physical activity and lifestyle modifications * BMI . * Diet exercise counseling done. * consult to dietitian Diabetes * Accu-Cheks a.c. HS * sliding scale insulin * hold oral diabetic medications * Diabetic diet * consult to dietitian * encourage lifestyle modifications and weight loss * Optimize Alvarado inhibitors and statins. * Watch for hypoglycemia/hypoglycemic protocol ordered Chronic combined systolic and diastolic CHF * Previous echo combined dysfunction EF 54% * echocardiogram pending * EKG SR * Give IV lasix between Units of blood otherwise stable CHF resumed PO lasix * chest x-ray no acute cardiopulmonary findings * Antiplatelet therapy, statin therapy, loop di
--- NOTE | 2023-08-12 13:08 | PM.IMPN ---
Progress Note: A&P Assessment and Plan (1) Hematuria: Code(s): R31.9 - Hematuria, unspecified Status: Acute (2) Acute urinary tract infection: Code(s): N39.0 - Urinary tract infection, site not specified Status: Acute (3) Chronic anticoagulation: Code(s): Z79.01 - half-way (current) use of anticoagulants Status: Acute (4) Blood loss anemia: Code(s): D50.0 - Iron deficiency anemia secondary to blood loss (chronic) Status: Acute (5) Hypomagnesemia: Code(s): E83.42 - Hypomagnesemia Status: Acute (6) Chronic atrial fibrillation: Code(s): I48.20 - Chronic atrial fibrillation, unspecified Status: Acute (7) Hypertension: Code(s): I10 - Essential (primary) hypertension Status: Acute (8) HLD (hyperlipidemia): Code(s): E78.5 - Hyperlipidemia, unspecified Status: Acute (9) EMMA on CPAP: Code(s): G47.33 - Obstructive sleep apnea (adult) (pediatric); Z99.89 - Dependence on other enabling machines and devices Status: Acute (10) GERD (gastroesophageal reflux disease): Code(s): K21.9 - Gastro-esophageal reflux disease without esophagitis Status: Acute (11) Morbid obesity with BMI of 45.0-49.9, adult: Code(s): E66.01 - Morbid (severe) obesity due to excess calories; Z68.42 - Body mass index [BMI] 45.0-49.9, adult Status: Acute (12) Acute on chronic combined systolic and diastolic CHF (congestive heart failure): Code(s): I50.43 - Acute on chronic combined systolic (congestive) and diastolic (congestive) heart failure Status: Acute Plan Anemia secondary to acute blood loss Acute on chronic iron deficiency anemia VS Hematuria Vs GI bleed Symptomatic with hypotension and dizziness Hgb 8.0 POA dropped to 6.9 2 units PRBC transfused occult stool ordered holding Xarelto Iron studies Monitor H&H transfuse if HGB <7.0 08/11/2023 HGb drop almost 2 points overnight No stool for occult Previous HX of NSAIDS and blood thinners Ferritin GI consulted for possible GI bleed 08/12/2023: Plan for EGD 08/14/2023 HGB still trending down Occult stool negative Hematuria-RESOLVED Secondary to UTI?? Urology consulted recent cysto showed no abnormalities holding Xarelto Hypotension secondary to volume loss IV fluids 2 untis PRBC transfused UTI UTI nitrate, leukocytes, and bacteria + Obesity Grew Staph aureus pending sensitivities initially in Rocephin added vancomycin Echo pending to rule out endocarditis Blood cultures with NGTD 08/12/2023: Echo no evidence of vegetation Hypomagnesemia 1.2 POA replenished daily mag replenish to keep >2.0 Obesity encourage increased on physical activity and lifestyle modifications BMI . Diet exercise counseling done. consult to dietitian Diabetes Accu-Cheks a.c. HS sliding scale insulin hold oral diabetic medications Diabetic diet consult to dietitian encourage lifestyle modifications and weight loss Optimize Alvarado inhibitors and statins. Watch for hypoglycemia/hypoglycemic protocol ordered Chronic combined systolic and diastolic CHF Previous echo combined dysfunction EF 54% echocardiogram pending EKG SR Give IV lasix between Units of blood otherwise stable CHF resumed PO lasix chest x-ray no acute cardiopulmonary findings Antiplatelet therapy, statin therapy, loop diuretics as indicated,. Optimize blood pressure less than 130/80. Fall risk assessment. Osteoarthritis Holding methotrexate Patient reporting severe pain we will give low-dose steroid for flare up HX AFIB: Holding Xarelto HX HLD: Resumed statin HX GERD: PPI HX EMMA: CPAP Code status: Full code per patient DVT prophylaxis: SCD's anemia Stress ulcer prophylaxis: Protonix 40 daily PT/OT notes: Disposition: Patient was admitted for acute blood loss anemia, blood transfusion, hypotension, he
[2023-08-12 13:16] LABS: Anion Gap 10 mmol/L (4-12); Blood Urea Nitrogen 9 mg/dL (9-20); Calcium 8.6 mg/dL (8.4-10.2); Carbon Dioxide 21 mmol/L (22-30); Chloride 99 mmol/L (98-107); Estimated CRCL calculation 115 ml/min; Estimated Glomerular Filt Rate > 60; Glucose 160 mg/dL (65-110); Potassium 4.1 mmol/L (3.4-5.0); Sodium 130 mmol/L (137-145)
[2023-08-12] MEDS: HYDROcodone/acetaminophen (*CRX) 5-325 MG TABLET 1 TAB PO ×2 (16:04→22:26)
[2023-08-12 17:01] LABS: Glucose Point of Care 172 mg/dl (65-105)
[2023-08-12 20:29] LABS: Glucose Point of Care 152 mg/dl (65-105)
[2023-08-13] VITALS (7 sets, daily range): BP systolic 95–118; BP diastolic 66–78; PULSE 60–89; RESP 17–20; TEMP 36.2–36.5; O2SAT 100
[2023-08-13 05:23] LABS: Hematocrit 25.5 % (42.0-52.0); Hemoglobin 7.8 g/dL (14.0-18.0); Mean Corpuscular HGB Conc 30.6 g/dl (32-36); Mean Corpuscular Hemoglobin 26.8 pg (26-34); Mean Corpuscular Volume 87.6 fl (80-100); Mean Platelet Volume 9.4 fl (7.4-10.4); Platelet Count Result 348 k/mm3 (150-375); Red Blood Count 2.91 M/mm3 (4.6-6.20); White Blood Count 8.9 K/mm3 (4.5-10.0)
[2023-08-13 05:41] LABS: Alanine Aminotransferase 10 U/L (6-50); Albumin Level 3.4 g/dL (3.5-5.1); Alkaline Phosphatase 103 U/L (38-126); Anion Gap 7 mmol/L (4-12); Aspartate Amino Transferase 18 U/L (17-59); Bilirubin,Total 0.5 mg/dL (0.2-1.3); Blood Urea Nitrogen 11 mg/dL (9-20); Calcium 8.6 mg/dL (8.4-10.2); Carbon Dioxide 24 mmol/L (22-30); Chloride 101 mmol/L (98-107); Estimated CRCL calculation 115 ml/min; Estimated Glomerular Filt Rate > 60; Glucose 121 mg/dL (65-110); Sodium 132 mmol/L (137-145)
--- NOTE | 2023-08-13 08:30 | PC.NURSE ---
Patient refused prednisone this morning as he was requesting a smaller dose and wanted to speak with the hospitalist first.
[2023-08-13 08:36] LABS: Glucose Point of Care 110 mg/dl (65-105)
[2023-08-13] MEDS: LINEZOLID 600 MG TABLET PO ×2 (09:13→20:13)
[2023-08-13] MEDS: PRAVASTATIN SODIUM 20 MG TABLET 40 MG PO (09:13)
[2023-08-13] MEDS: SPIRONOLACTONE 25 MG TABLET PO (09:13)
[2023-08-13] MEDS: HYDROXYCHLOROQUINE SULFATE 200 MG TABLET 400 MG PO (09:13)
[2023-08-13] MEDS: PANTOPRAZOLE 40 MG TABLET PO (09:13)
[2023-08-13] MEDS: FOLIC ACID 1 MG TABLET PO (09:13)
[2023-08-13] MEDS: FUROSEMIDE 20 MG TABLET PO (09:13)
[2023-08-13] MEDS: METOPROLOL TARTRATE 50 MG TAB 100 MG PO ×2 (09:17→20:13)
--- NOTE | 2023-08-13 09:31 | P.PNIM_ITS ---
Progress Note: A&P Assessment and Plan (1) Hematuria: Code(s): R31.9 - Hematuria, unspecified Status: Acute (2) Acute urinary tract infection: Code(s): N39.0 - Urinary tract infection, site not specified Status: Acute (3) Chronic anticoagulation: Code(s): Z79.01 - correction (current) use of anticoagulants Status: Acute (4) Blood loss anemia: Code(s): D50.0 - Iron deficiency anemia secondary to blood loss (chronic) Status: Acute (5) Hypomagnesemia: Code(s): E83.42 - Hypomagnesemia Status: Acute (6) Chronic atrial fibrillation: Code(s): I48.20 - Chronic atrial fibrillation, unspecified Status: Acute (7) Hypertension: Code(s): I10 - Essential (primary) hypertension Status: Acute (8) HLD (hyperlipidemia): Code(s): E78.5 - Hyperlipidemia, unspecified Status: Acute (9) EMMA on CPAP: Code(s): G47.33 - Obstructive sleep apnea (adult) (pediatric); Z99.89 - Dependence on other enabling machines and devices Status: Acute (10) GERD (gastroesophageal reflux disease): Code(s): K21.9 - Gastro-esophageal reflux disease without esophagitis Status: Acute (11) Morbid obesity with BMI of 45.0-49.9, adult: Code(s): E66.01 - Morbid (severe) obesity due to excess calories; Z68.42 - Body mass index [BMI] 45.0-49.9, adult Status: Acute (12) Acute on chronic combined systolic and diastolic CHF (congestive heart failure): Code(s): I50.43 - Acute on chronic combined systolic (congestive) and diastolic (congestive) heart failure Status: Acute Plan Anemia secondary to acute blood loss * Acute on chronic iron deficiency anemia VS Hematuria Vs GI bleed * Symptomatic with hypotension and dizziness * Hgb 8.0 POA dropped to 6.9 * 2 units PRBC transfused * occult stool ordered * holding Xarelto * Iron studies * Monitor H&H transfuse if HGB <7.0 08/11/2023 * HGb drop almost 2 points overnight * No stool for occult * Previous HX of NSAIDS and blood thinners * Ferritin * GI consulted for possible GI bleed 08/12/2023: * Plan for EGD 08/14/2023 * HGB still trending down * Occult stool negative * if nothing found on EGD my need to see Hematology O/P Hematuria-RESOLVED * Secondary to UTI?? * Urology consulted * recent cysto showed no abnormalities * holding Xarelto Hypotension * secondary to volume loss * IV fluids * 2 untis PRBC transfused UTI * UTI nitrate, leukocytes, and bacteria + Obesity * Grew Staph aureus pending sensitivities * initially in Rocephin added vancomycin * Echo pending to rule out endocarditis * Blood cultures with NGTD 08/12/2023: * Echo no evidence of vegetation Hypomagnesemia * 1.2 POA * replenished * daily mag replenish to keep >2.0 Obesity * encourage increased on physical activity and lifestyle modifications * BMI . * Diet exercise counseling done. * consult to dietitian Diabetes * Accu-Cheks a.c. HS * sliding scale insulin * hold oral diabetic medications * Diabetic diet * consult to dietitian * encourage lifestyle modifications and weight loss * Optimize Alvarado inhibitors and statins. * Watch for hypoglycemia/hypoglycemic protocol ordered Chronic combined systolic and diastolic CHF * Previous echo combined dysfunction EF 54% * echocardiogram pending * EKG SR * Give IV lasix between Units of blood otherwise stable CHF resumed PO lasix * chest x-ray no acute cardiopulmonary
--- NOTE | 2023-08-13 09:31 | PM.IMPN ---
Progress Note: A&P Assessment and Plan (1) Hematuria: Code(s): R31.9 - Hematuria, unspecified Status: Acute (2) Acute urinary tract infection: Code(s): N39.0 - Urinary tract infection, site not specified Status: Acute (3) Chronic anticoagulation: Code(s): Z79.01 - detention (current) use of anticoagulants Status: Acute (4) Blood loss anemia: Code(s): D50.0 - Iron deficiency anemia secondary to blood loss (chronic) Status: Acute (5) Hypomagnesemia: Code(s): E83.42 - Hypomagnesemia Status: Acute (6) Chronic atrial fibrillation: Code(s): I48.20 - Chronic atrial fibrillation, unspecified Status: Acute (7) Hypertension: Code(s): I10 - Essential (primary) hypertension Status: Acute (8) HLD (hyperlipidemia): Code(s): E78.5 - Hyperlipidemia, unspecified Status: Acute (9) EMMA on CPAP: Code(s): G47.33 - Obstructive sleep apnea (adult) (pediatric); Z99.89 - Dependence on other enabling machines and devices Status: Acute (10) GERD (gastroesophageal reflux disease): Code(s): K21.9 - Gastro-esophageal reflux disease without esophagitis Status: Acute (11) Morbid obesity with BMI of 45.0-49.9, adult: Code(s): E66.01 - Morbid (severe) obesity due to excess calories; Z68.42 - Body mass index [BMI] 45.0-49.9, adult Status: Acute (12) Acute on chronic combined systolic and diastolic CHF (congestive heart failure): Code(s): I50.43 - Acute on chronic combined systolic (congestive) and diastolic (congestive) heart failure Status: Acute Plan Anemia secondary to acute blood loss Acute on chronic iron deficiency anemia VS Hematuria Vs GI bleed Symptomatic with hypotension and dizziness Hgb 8.0 POA dropped to 6.9 2 units PRBC transfused occult stool ordered holding Xarelto Iron studies Monitor H&H transfuse if HGB <7.0 08/11/2023 HGb drop almost 2 points overnight No stool for occult Previous HX of NSAIDS and blood thinners Ferritin GI consulted for possible GI bleed 08/12/2023: Plan for EGD 08/14/2023 HGB still trending down Occult stool negative if nothing found on EGD my need to see Hematology O/P Hematuria-RESOLVED Secondary to UTI?? Urology consulted recent cysto showed no abnormalities holding Xarelto Hypotension secondary to volume loss IV fluids 2 untis PRBC transfused UTI UTI nitrate, leukocytes, and bacteria + Obesity Grew Staph aureus pending sensitivities initially in Rocephin added vancomycin Echo pending to rule out endocarditis Blood cultures with NGTD 08/12/2023: Echo no evidence of vegetation Hypomagnesemia 1.2 POA replenished daily mag replenish to keep >2.0 Obesity encourage increased on physical activity and lifestyle modifications BMI . Diet exercise counseling done. consult to dietitian Diabetes Accu-Cheks a.c. HS sliding scale insulin hold oral diabetic medications Diabetic diet consult to dietitian encourage lifestyle modifications and weight loss Optimize Alvarado inhibitors and statins. Watch for hypoglycemia/hypoglycemic protocol ordered Chronic combined systolic and diastolic CHF Previous echo combined dysfunction EF 54% echocardiogram pending EKG SR Give IV lasix between Units of blood otherwise stable CHF resumed PO lasix chest x-ray no acute cardiopulmonary findings Antiplatelet therapy, statin therapy, loop diuretics as indicated,. Optimize blood pressure less than 130/80. Fall risk assessment. Osteoarthritis Holding methotrexate Patient reporting severe pain we will give low-dose steroid for flare up HX AFIB: Holding Xarelto HX HLD: Resumed statin HX GERD: PPI HX EMMA: CPAP Code status: Full code per patient DVT prophylaxis: SCD's anemia Stress ulcer prophylaxis: Protonix 40 daily PT/OT notes: Disposition: Patient was admitted for acu
[2023-08-13] MEDS: ACETAMINOPHEN 325 MG TABLET 650 MG PO (11:24)
[2023-08-13 11:47] LABS: Glucose Point of Care 100 mg/dl (65-105)
--- NOTE | 2023-08-13 15:23 | WPDGIPROGNO ---
Progress Note: A&P Assessment and Plan (1) Acute on chronic anemia: Code(s): D64.9 - Anemia, unspecified Status: Acute Assessment and Plan: occult blood in stool negative but we will assess with egd/colonoscopy tomorrow to see if any gi source to explain anemia could be multifactorial- if GI work up negative then recommend to follow up with hematology blood thinner on hold now also had h/o intermittent hematuria, already evaluated by urology (2) Acute urinary tract infection: Code(s): N39.0 - Urinary tract infection, site not specified Status: Acute (3) Chronic anticoagulation: Code(s): Z79.01 - care home (current) use of anticoagulants Status: Acute Assessment and Plan: on hold (4) Urinary tract infection: Code(s): N39.0 - Urinary tract infection, site not specified Status: Acute (5) EMMA on CPAP: Code(s): G47.33 - Obstructive sleep apnea (adult) (pediatric); Z99.89 - Dependence on other enabling machines and devices Status: Acute (6) Morbid obesity with BMI of 45.0-49.9, adult: Code(s): E66.01 - Morbid (severe) obesity due to excess calories; Z68.42 - Body mass index [BMI] 45.0-49.9, adult Status: Acute Subjective Date/time seen: 08/13/23 15:23 Interval history: no changes, he is comfortable. Review of Systems Review of Systems: All systems reviewed & are unremarkable except as noted in HPI and below Exam Const: General: comfortable and no acute distress Other: A&O x3. Obese. HENMT: Face/Nose/Sinus: Normal nares present Eyes: Pupils: Equal, round and reactive pupils present Neck: Neck: supple Resp: Effort & Inspection: normal respiratory effort Auscultation: clear to auscultation bilaterally Cardio: Rate: regular rate Rhythm: abnormal rhythm Heart sounds: no gallops GI: GI Palp: Yes Soft to palpation, No Tenderness to palpation present (GI) and No Guarding due to palpation present (GI) Auscultation: normal bowel sounds Skin: General skin exam: no rashes or lesions noted Neuro: Speech: normal speech Motor exam (neuro): 5/5 motor strength present throughout Extrem: General: edema (Pedal edema bilaterally. Lipodermatosclerosis to the bilateral lower extre) Psych: Affect: normal affect Objective Data Vital Signs Vital Signs: Vital Signs - 24 hr 08/12/23 19:29 08/12/23 20:26 08/12/23 20:00 Temperature 97.5 F L Pulse Rate 70 70 70 Respiratory Rate 20 20 Blood Pressure 116/66 Pulse Oximetry 98 98 Oxygen Delivery Room Air Fraction of Inspired Oxygen 21 08/13/23 03:17 08/13/23 09:17 08/13/23 09:15 Temperature 97.6 F Pulse Rate 78 87 Respiratory Rate 18 Blood Pressure 118/72 Pulse Oximetry 100 Oxygen Delivery Room Air Fraction of Inspired Oxygen 08/13/23 09:10 08/13/23 14:05 Temperature 97.2 F L Pulse Rate 79 Respiratory Rate 17 Blood Pressure 103/66 95/66 L Pulse Oximetry 100 Oxygen Delivery Fraction of Inspired Oxygen Intake/Output Intake/Output: Intake & Output 08/10/23 08/11/23 08/12/23 08/13/23 23:59 23:59 23:59 23:59 Intake Total 2120 2610 3790 710 Output Total 1300 2775 3000 1300 Balance 820 -165 790 -590 Meds/Results Medications: Active Medications Generic Name Dose Route Start Last Admin Trade Name Freq PRN Reason Stop Dose Admin Acetaminophen 650 mg 08/09/23 04:06 08/13/23 11:24 Acetaminophen 325 Mg Tablet PO 650 mg Q6H PRN Administration Mild Pain (1-3) or Fever Hydrocodone Bitart/Acetaminophen 1 tab 08/09/23 10:35 08/12/23 22:26 Hydrocodone/Acetaminophen (*Crx) 5-325 Mg Tablet PO 1 tab Q4H PRN Administration Pain Rated 6 or Greater Bisacodyl 20 mg 08/13/23 17:00 Bisacodyl 5 Mg Tablet Ec PO 08/13/23 17:01 ONCE ONE Dextrose 12.5 gm 08/09/23 03:24 Dextrose 50% 25 Gm/50 Ml Syringe IV PUSH PRN PRN Hypoglycemia Protocol Folic Acid 1 mg 08/09/23 09:
[2023-08-13 17:10] LABS: Glucose Point of Care 106 mg/dl (65-105)
[2023-08-13] MEDS: BISACODYL 5 MG TABLET EC 20 MG PO (17:56)
[2023-08-13] MEDS: polyethylene glycoL 3350 238 GM BOTTLE PO (17:56)
[2023-08-13] MEDS: HYDROcodone/acetaminophen (*CRX) 5-325 MG TABLET 1 TAB PO ×2 (18:33→23:56)
[2023-08-13 20:57] LABS: Glucose Point of Care 100 mg/dl (65-105)
[2023-08-14] VITALS (8 sets, daily range): BP systolic 84–126; BP diastolic 50–84; PULSE 72–99; RESP 16–25; TEMP 36.2–36.5; O2SAT 95–100
[2023-08-14] MEDS: MAGNESIUM CITRATE 300 ML BTL PO (01:28)
[2023-08-14 05:54] LABS: Hematocrit 27.9 % (42.0-52.0); Hemoglobin 8.1 g/dL (14.0-18.0); Mean Corpuscular Hemoglobin 26.1 pg (26-34); Mean Platelet Volume 8.9 fl (7.4-10.4); Platelet Count Result 363 k/mm3 (150-375); Red Cell Distribution Width 18.3 % (11.5-14.5); White Blood Count 8.2 K/mm3 (4.5-10.0)
[2023-08-14 06:07] LABS: Alanine Aminotransferase 20 U/L (6-50); Albumin Level 3.5 g/dL (3.5-5.1); Alkaline Phosphatase 95 U/L (38-126); Anion Gap 10 mmol/L (4-12); Aspartate Amino Transferase 30 U/L (17-59); Bilirubin,Total 0.5 mg/dL (0.2-1.3); Blood Urea Nitrogen 14 mg/dL (9-20); Calcium 8.7 mg/dL (8.4-10.2); Carbon Dioxide 24 mmol/L (22-30); Chloride 100 mmol/L (98-107); Estimated CRCL calculation 102 ml/min; Estimated Glomerular Filt Rate > 60; Glucose 86 mg/dL (65-110); Potassium 3.9 mmol/L (3.4-5.0); Sodium 134 mmol/L (137-145)
[2023-08-14 08:06] LABS: Glucose Point of Care 85 mg/dl (65-105)
[2023-08-14] MEDS: HYDROcodone/acetaminophen (*CRX) 5-325 MG TABLET 1 TAB PO (08:30)
[2023-08-14] MEDS: FOLIC ACID 1 MG TABLET PO (08:30)
[2023-08-14] MEDS: PANTOPRAZOLE 40 MG TABLET PO (08:30)
[2023-08-14] MEDS: HYDROXYCHLOROQUINE SULFATE 200 MG TABLET 400 MG PO (08:30)
[2023-08-14] MEDS: LINEZOLID 600 MG TABLET PO (08:30)
[2023-08-14] MEDS: SPIRONOLACTONE 25 MG TABLET PO (08:30)
[2023-08-14] MEDS: PRAVASTATIN SODIUM 20 MG TABLET 40 MG PO (08:30)
[2023-08-14] MEDS: predniSONE 10 MG TABLET 20 MG PO (08:31)
[2023-08-14] MEDS: FUROSEMIDE 20 MG TABLET PO (08:32)
[2023-08-14] MEDS: METOPROLOL TARTRATE 50 MG TAB 100 MG PO (08:34)
--- NOTE | 2023-08-14 09:28 | WPDUROPN2 ---
Progress Note: A&P Assessment and Plan (1) Hematuria: Code(s): R31.9 - Hematuria, unspecified Status: Acute Assessment and Plan: Intermittent gross hematuria for several months. Has had negative evaluation with CT urogram and cystoscopy 05/2023. CT a/p reviewed with no acute findings. Hematuria resolved. Likely had recurrence due to UTI. No indication for acute urologic intervention at this time. (2) Acute urinary tract infection: Code(s): N39.0 - Urinary tract infection, site not specified Status: Acute Assessment and Plan: Urine culture with growth of sensitive Staph aureus. Remains on linezolid. (3) Chronic anticoagulation: Code(s): Z79.01 - senior care (current) use of anticoagulants Status: Acute Assessment and Plan: Xarelto on hold due to anemia (4) Blood loss anemia: Code(s): D50.0 - Iron deficiency anemia secondary to blood loss (chronic) Status: Acute Assessment and Plan: Decline in hemoglobin to 6.9 on admission. Received 2 units of blood. H&H now remaining stable, continue to monitor. Not felt to be related to urologic source as urine remains crystal clear Subjective Subjective Date/Time Seen: 08/14/23 09:28 Interval history: Doing well today. Reports no concerns. Completed prep for EGD and colonoscopy today. Reports urine is clear yellow, no further episodes of hematuria. Review of Systems Review of Systems: All systems reviewed & are unremarkable except as noted in HPI and below Exam Narrative: General: Awake, alert, comfortable, no acute distress HEENT: Normocephalic, atraumatic, sclerae anicteric Respiratory: Normal respiratory effort, no accessory muscle use Abdomen: Nondistended, soft, nontender : Urine in urinal at bedside is clear yellow Skin: Normal coloration, warm and dry Neurologic: No focal neuro deficits noted Psychiatric: Appropriate mood and affect, judgment and insight intact Objective Data Vital Signs Vital Signs: Vital Signs - 24 hr 08/13/23 14:05 08/13/23 20:13 08/13/23 20:00 Temperature 97.2 F L Pulse Rate 79 60 60 Respiratory Rate 17 17 Blood Pressure 95/66 L Pulse Oximetry 100 100 Oxygen Delivery Room Air Fraction of Inspired Oxygen 21 08/13/23 21:56 08/14/23 06:00 07/08/24 08:34 Temperature 97.7 F 97.5 F L Pulse Rate 89 72 80 Respiratory Rate 20 20 Blood Pressure 104/78 105/80 Pulse Oximetry 100 99 Oxygen Delivery Fraction of Inspired Oxygen 08/14/23 08:30 Temperature Pulse Rate Respiratory Rate Blood Pressure 103/65 Pulse Oximetry Oxygen Delivery Fraction of Inspired Oxygen Intake/Output Intake/Output: Intake & Output 08/11/23 08/12/23 08/13/23 08/14/23 23:59 23:59 23:59 23:59 Intake Total 2610 3790 1380 480 Output Total 2775 3000 2250 1000 Balance -165 790 -870 -520 Meds/Results Medications: Active Medications Generic Name Dose Route Start Last Admin Trade Name Freq PRN Reason Stop Dose Admin Acetaminophen 650 mg 08/09/23 04:06 08/13/23 11:24 Acetaminophen 325 Mg Tablet PO 650 mg Q6H PRN Administration Mild Pain (1-3) or Fever Hydrocodone Bitart/Acetaminophen 1 tab 08/09/23 10:35 08/14/23 08:30 Hydrocodone/Acetaminophen (*Crx) 5-325 Mg Tablet PO 1 tab Q4H PRN Administration Pain Rated 6 or Greater Dextrose 12.5 gm 08/09/23 03:24 Dextrose 50% 25 Gm/50 Ml Syringe IV PUSH PRN PRN Hypoglycemia Protocol Folic Acid 1 mg 08/09/23 09:00 08/14/23 08:30 Folic Acid 1 Mg Tablet PO 1 mg DAILY LENORE Administration Furosemide 20 mg 08/09/23 09:00 08/14/23 08:32 Furosemide 20 Mg Tablet PO 20 mg DAILY LENORE Administration Furosemide 40 mg 08/09/23 08:18 08/09/23 13:01 Furosemide Inj 40 Mg/4 Ml Vial IV PUSH 40 mg PRN PRN Administration Between Units of PRBC Glucagon 1 mg 08/09/23 03:24 Glucagon For Inj 1 Mg Vial
[2023-08-14] MEDS: LACTATED RINGERS 1,000 ML 150 ML IV CONT (11:05)
--- NOTE | 2023-08-14 11:08 | PC.NURSE ---
Patient off of unit to GI lab
--- NOTE | 2023-08-14 11:33 | WPDANESEPPF ---
Anes - Initial Pre Proc Eval Procedure: Operation Date: 08/14/23 13:30 Proposed Procedures p Esophagogastroduodenoscopy & Colonoscopy - Yasir Camarena MD Date/Time: 08/14/23 11:33 Surgeon: Lory Shukla APRN Pre Op Diagnosis: UTI, hematuria, anemia Patient Data Age: 67 Gender: M Height: 1.8 m Weight: 114.5 kg Last Vital Signs Temp 97.2 F L 08/14/23 11:09 Pulse 84 08/14/23 11:09 Resp 18 08/14/23 11:09 BP 126/84 08/14/23 11:09 Pulse Ox 99 08/14/23 11:09 O2 Del Method Room Air 08/14/23 11:09 FiO2 21 08/13/23 20:00 Allergies Allergy/AdvReac Type Severity Reaction Status Date / Time No Known Allergies Allergy Verified 08/14/23 11:06 Home Medications Medication Instructions Recorded Confirmed Type rivaroxaban 20 mg tablet (Xarelto) 20 mg PO DAILY 01/31/19 08/14/23 History furosemide 20 mg tablet (Lasix) 20 mg PO DAILY 10/26/20 08/09/23 History naproxen sodium 220 mg tablet 220 mg PO BID Pain 03/31/21 08/09/23 History (Flanax (naproxen)) metoprolol tartrate 50 mg tablet 100 mg PO BID 01/13/22 08/09/23 History spironolactone 25 mg tablet 25 mg PO DAILY #30 tabs 03/07/22 08/09/23 Rx folic acid 1 mg tablet 1 mg PO DAILY #30 tabs 09/22/22 08/09/23 Rx methotrexate sodium 2.5 mg tablet 20 mg PO WEEKLY #32 tabs 09/22/22 08/09/23 Rx pravastatin 40 mg tablet 40 mg PO DAILY #90 tabs 11/22/22 08/09/23 Rx empagliflozin 10 mg tablet 10 mg PO DAILY 06/19/23 08/09/23 History (Jardiance) losartan 25 mg tablet 25 mg PO DAILY 06/19/23 08/09/23 History semaglutide 2 mg/dose (8 mg/3 mL) 2 mg (0.75 mL) subcut WEEKLY #3 mL 07/09/23 08/09/23 Rx subcutaneous pen injector (Ozempic) acetaminophen 325 mg capsule 650 mg PO Q4H PRN Pain (Scale 08/09/23 08/09/23 History Score 1-3) hydroxychloroquine 200 mg tablet 400 mg PO DAILY 08/09/23 08/09/23 History metformin 500 mg tablet,extended 1,000 mg PO 1800 08/09/23 08/09/23 History release 24 hr metformin 500 mg tablet,extended 500 mg PO DAILY 08/09/23 08/09/23 History release 24 hr omeprazole 20 mg capsule,delayed 20 mg PO DAILY 08/09/23 08/09/23 History release Laboratory Tests 08/13/23 08/13/23 08/13/23 11:32 16:44 19:54 WBC RBC Hgb Hct MCV MCH MCHC RDW Plt Count MPV Sodium Potassium Chloride Carbon Dioxide Anion Gap BUN Creatinine Estim Creat Clear Calc Estimated GFR Glucose POC Capillary Glucose 100 mg/dl 106 H mg/dl 100 mg/dl (65-105) (65-105) (65-105) Calcium Total Bilirubin AST ALT Alkaline Phosphatase Total Protein Albumin 08/14/23 08/14/23 05:13 07:59 WBC 8.2 K/mm3 (4.5-10.0) RBC 3.10 L M/mm3 (4.6-6.20) Hgb 8.1 L g/dL (14.0-18.0) Hct 27.9 L % (42.0-52.0) MCV 90.0 fl (80-100) MCH 26.1 pg (26-34) MCHC 29.0 L g/dl (32-36) RDW 18.3 H % (11.5-14.5) Plt Count 363 k/mm3 (150-375) MPV 8.9 fl (7.4-10.4) Sodium 134 L mmol/L (137-145) Potassium 3.9 mmol/L (3.4-5.0) Chloride 100 mmol/L (98-107) Carbon Dioxide 24 mmol/L (22-30) Anion Gap 10 mmol/L (4-12) BUN 14 mg/dL (9-20) Creatinine 0.80 mg/dL (0.7-1.3) Estim Creat Clear Calc 102 ml/min Estimated GFR > 60 (59 - ) Glucose 86 mg/dL (65-110) POC Capillary Glucose 85 mg/dl (65-105) Calcium 8.7 mg/dL (8.4-10.2) Total Bilirubin 0.5 mg/dL (0.2-1.3) AST 30 U/L (17-59) ALT 20 U/L (6-50) Alkaline Phosphatase 95 U/L (38-126) Total Protein 7.0 g/dL (6.3-8.2) Albumin 3.5 g/dL
[2023-08-14 12:06] LABS: Glucose Point of Care 93 mg/dl (65-105)
--- NOTE | 2023-08-14 12:08 | SUR.OPER ---
EGD: START-1211 END-1213, COLON: [id number] PATIENT HAD RETAINED FOOD IN THE STOMACH DURING THE EGD. THE CONTRACT CLERK AND ANESTHESIOLOGIST FELT IT WAS SAFEST FOR THE PATIENT TO BE INTUBATED FOR THE COLONOSCOPY DUE TO FOOD IN THE STOMACH. JOSE SALES AND DR. LOUISE INTUBATED PATIENT AT 1219.
--- NOTE | 2023-08-14 13:53 | P.DS_ITS ---
DS: Admitting Diagnosis Discharge Date 08/14/2023 Admitting Diagnosis Hematuria/UTI/Anemia DS: Discharge Diagnosis Discharge Diagnosis (1) Hematuria: Code(s): R31.9 - Hematuria, unspecified Status: Acute (2) Acute urinary tract infection: Code(s): N39.0 - Urinary tract infection, site not specified Status: Acute (3) Chronic anticoagulation: Code(s): Z79.01 - [facility] (current) use of anticoagulants Status: Acute (4) Blood loss anemia: Code(s): D50.0 - Iron deficiency anemia secondary to blood loss (chronic) Status: Acute (5) Hypomagnesemia: Code(s): E83.42 - Hypomagnesemia Status: Acute (6) Chronic atrial fibrillation: Code(s): I48.20 - Chronic atrial fibrillation, unspecified Status: Acute (7) Hypertension: Code(s): I10 - Essential (primary) hypertension Status: Acute (8) HLD (hyperlipidemia): Code(s): E78.5 - Hyperlipidemia, unspecified Status: Acute (9) EMMA on CPAP: Code(s): G47.33 - Obstructive sleep apnea (adult) (pediatric); Z99.89 - Dependence on other enabling machines and devices Status: Acute (10) GERD (gastroesophageal reflux disease): Code(s): K21.9 - Gastro-esophageal reflux disease without esophagitis Status: Acute (11) Morbid obesity with BMI of 45.0-49.9, adult: Code(s): E66.01 - Morbid (severe) obesity due to excess calories; Z68.42 - Body mass index [BMI] 45.0-49.9, adult Status: Acute (12) Acute on chronic combined systolic and diastolic CHF (congestive heart failure): Code(s): I50.43 - Acute on chronic combined systolic (congestive) and diastolic (congestive) heart failure Status: Acute Plan Anemia secondary to acute blood loss * Acute on chronic iron deficiency anemia VS Hematuria Vs GI bleed * Symptomatic with hypotension and dizziness * Hgb 8.0 POA dropped to 6.9 * 2 units PRBC transfused * occult stool ordered * holding Xarelto * Iron studies * Monitor H&H transfuse if HGB <7.0 08/11/2023 * HGb drop almost 2 points overnight * No stool for occult * Previous HX of NSAIDS and blood thinners * Ferritin * GI consulted for possible GI bleed 08/12/2023: * Plan for EGD 08/14/2023 * HGB still trending down * Occult stool negative * if nothing found on EGD my need to see Hematology O/P Hematuria-RESOLVED * Secondary to UTI?? * Urology consulted * recent cysto showed no abnormalities * holding Xarelto Hypotension * secondary to volume loss * IV fluids * 2 untis PRBC transfused UTI * UTI nitrate, leukocytes, and bacteria + Obesity * Grew Staph aureus pending sensitivities * initially in Rocephin added vancomycin * Echo pending to rule out endocarditis * Blood cultures with NGTD 08/12/2023: * Echo no evidence of vegetation Hypomagnesemia * 1.2 POA * replenished * daily mag replenish to keep >2.0 Obesity * encourage increased on physical activity and lifestyle modifications * BMI . * Diet exercise counseling done. * consult to dietitian Diabetes * Accu-Cheks a.c. HS * sliding scale insulin * hold oral diabetic medications * Diabetic diet * consult to dietitian * encourage lifestyle modifications and weight loss * Optimize Alvarado inhibitors and statins. * Watch for hypoglycemia/hypoglycemic protocol ordered Chronic combined systolic and diastolic CHF * Previous echo combined dysfunction EF 54% * echocardiogram p
--- NOTE | 2023-08-14 13:53 | PM.DS ---
DS: Admitting Diagnosis Discharge Date 08/14/2023 Admitting Diagnosis Hematuria/UTI/Anemia DS: Discharge Diagnosis Discharge Diagnosis (1) Hematuria: Code(s): R31.9 - Hematuria, unspecified Status: Acute (2) Acute urinary tract infection: Code(s): N39.0 - Urinary tract infection, site not specified Status: Acute (3) Chronic anticoagulation: Code(s): Z79.01 - half-way (current) use of anticoagulants Status: Acute (4) Blood loss anemia: Code(s): D50.0 - Iron deficiency anemia secondary to blood loss (chronic) Status: Acute (5) Hypomagnesemia: Code(s): E83.42 - Hypomagnesemia Status: Acute (6) Chronic atrial fibrillation: Code(s): I48.20 - Chronic atrial fibrillation, unspecified Status: Acute (7) Hypertension: Code(s): I10 - Essential (primary) hypertension Status: Acute (8) HLD (hyperlipidemia): Code(s): E78.5 - Hyperlipidemia, unspecified Status: Acute (9) EMMA on CPAP: Code(s): G47.33 - Obstructive sleep apnea (adult) (pediatric); Z99.89 - Dependence on other enabling machines and devices Status: Acute (10) GERD (gastroesophageal reflux disease): Code(s): K21.9 - Gastro-esophageal reflux disease without esophagitis Status: Acute (11) Morbid obesity with BMI of 45.0-49.9, adult: Code(s): E66.01 - Morbid (severe) obesity due to excess calories; Z68.42 - Body mass index [BMI] 45.0-49.9, adult Status: Acute (12) Acute on chronic combined systolic and diastolic CHF (congestive heart failure): Code(s): I50.43 - Acute on chronic combined systolic (congestive) and diastolic (congestive) heart failure Status: Acute Plan Anemia secondary to acute blood loss Acute on chronic iron deficiency anemia VS Hematuria Vs GI bleed Symptomatic with hypotension and dizziness Hgb 8.0 POA dropped to 6.9 2 units PRBC transfused occult stool ordered holding Xarelto Iron studies Monitor H&H transfuse if HGB <7.0 08/11/2023 HGb drop almost 2 points overnight No stool for occult Previous HX of NSAIDS and blood thinners Ferritin GI consulted for possible GI bleed 08/12/2023: Plan for EGD 08/14/2023 HGB still trending down Occult stool negative if nothing found on EGD my need to see Hematology O/P Hematuria-RESOLVED Secondary to UTI?? Urology consulted recent cysto showed no abnormalities holding Xarelto Hypotension secondary to volume loss IV fluids 2 untis PRBC transfused UTI UTI nitrate, leukocytes, and bacteria + Obesity Grew Staph aureus pending sensitivities initially in Rocephin added vancomycin Echo pending to rule out endocarditis Blood cultures with NGTD 08/12/2023: Echo no evidence of vegetation Hypomagnesemia 1.2 POA replenished daily mag replenish to keep >2.0 Obesity encourage increased on physical activity and lifestyle modifications BMI . Diet exercise counseling done. consult to dietitian Diabetes Accu-Cheks a.c. HS sliding scale insulin hold oral diabetic medications Diabetic diet consult to dietitian encourage lifestyle modifications and weight loss Optimize Alvarado inhibitors and statins. Watch for hypoglycemia/hypoglycemic protocol ordered Chronic combined systolic and diastolic CHF Previous echo combined dysfunction EF 54% echocardiogram pending EKG SR Give IV lasix between Units of blood otherwise stable CHF resumed PO lasix chest x-ray no acute cardiopulmonary findings Antiplatelet therapy, statin therapy, loop diuretics as indicated,. Optimize blood pressure less than 130/80. Fall risk assessment. Osteoarthritis Holding methotrexate Patient reporting severe pain we will give low-dose steroid for flare up HX AFIB: Holding Xarelto HX HLD: Resumed statin HX GERD: PPI HX EMMA: CPAP Disposition: Discharge to home will follow-up with database technician O/P
== END 2023-08-14 15:55 | disposition home or self-care (01) | DRG 811 ==
LOC: ANHED 19:11 → ANH3MED 08-09 00:28
PROVIDERS: Emergency Medicine; Internal Medicine Gastroenterology; Admitting Provider General Practice; Emergency Provider Student in an Organized Health Care Education/Training Program; PCP Family Medicine; Visit Provider Nurse Practitioner Family
PROC: 0DJ08ZZ Inspection of Upper Intestinal Tract, Via Natural or Artificial Opening Endoscopic (ICD-10-PCS; CPT 43235; principal; 2023-08-14 13:30)
DX: D62 Acute posthemorrhagic anemia (principal); I50.43 Acute on chronic combined systolic (congestive) and diastolic (congestive) heart failure; N39.0 Urinary tract infection, site not specified; R31.0 Gross hematuria; A49.01 Methicillin susceptible Staphylococcus aureus infection, unspecified site; E83.42 Hypomagnesemia; K29.70 Gastritis, unspecified, without bleeding; K31.84 Gastroparesis; K31.7 Polyp of stomach and duodenum; K57.30 Diverticulosis of large intestine without perforation or abscess without bleeding; K64.8 Other hemorrhoids; I48.0 Paroxysmal atrial fibrillation; E78.5 Hyperlipidemia, unspecified; G47.33 Obstructive sleep apnea (adult) (pediatric); K21.9 Gastro-esophageal reflux disease without esophagitis; E66.01 Morbid (severe) obesity due to excess calories; E11.9 Type 2 diabetes mellitus without complications; I11.0 Hypertensive heart disease with heart failure; E87.6 Hypokalemia; M06.9 Rheumatoid arthritis, unspecified; M19.90 Unspecified osteoarthritis, unspecified site; Z68.35 Body mass index [BMI] 35.0-35.9, adult; Z79.01 Long term (current) use of anticoagulants; Z87.891 Personal history of nicotine dependence
CPT/HCPCS: 36415; 36430; 71046; 74176; 80048; 80053; 81001; 82274; 82607; 82728; 82948; 83540; 83550; 83605; 83735; 83880; 84145; 84484; 85014; 85018; 85025; 85027; 85610; 85730; 86140; 86850; 86900; 86901; 86923; 87040; 87077; 87086; 87088; 87181; 88305; 88342; 93005; 93306; 96361; 96365; 99285; A9270; J0696; J1940; J2704; J3370; J3475; J3480; J7040; J7050; J7120; J7512; P9016

== ENCOUNTER 2023-08-28 14:29 | Outpatient (CLI) | payer MEDICARE, SELFPAY ==
[2023-08-28 14:58] LABS: Basophils Absolute Auto 0.1 K/mm3 (0.0-0.1); Basophils Percent Auto 0.9 % (0.2-1.2); Eosinophils Absolute Auto 0.3 K/mm3 (0-0.3); Eosinophils Percent Auto 4.1 % (0-4.4); Hematocrit 34.3 % (42.0-52.0); Hemoglobin 10.4 g/dL (14.0-18.0); Immature Granulocyte Absolute 0.02 K/mm3 (0.00-0.031); Immature Granulocyte Percent A 0.3 % (0-0.5); Immature Reticulocyte Fraction 10.3 % (3.0-15.9); Lymphocytes Absolute Auto 1.06 K/mm3 (0.9-3.2); Lymphocytes Percent Auto 16.6 % (18.3-44.2); Mean Corpuscular HGB Conc 30.3 g/dl (32-36); Mean Corpuscular Hemoglobin 26.2 pg (26-34); Mean Corpuscular Volume 86.4 fl (80-100); Mean Platelet Volume 10.1 fl (7.4-10.4); Monocytes Absolute Auto 0.7 K/mm3 (0.1-0.6); Monocytes Percent Auto 11.3 % (2.6-8.5); Neutrophils Absolute Auto 4.3 K/mm3 (1.3-6.7); Neutrophils Percent Auto 66.8 % (45.5-73.1); Red Blood Count 3.97 M/mm3 (4.6-6.20); Red Cell Distribution Width 17.9 % (11.5-14.5); Reticulocyte Hemoglobin Conten 27.4 pg (28.2-36.6); Reticulocyte Percent 1.27 % (0.7-4.3); Reticulocytes Absolute 0.05 10^6/uL (0.02-0.10); White Blood Count 6.4 K/mm3 (4.5-10.0)
[2023-08-28 15:04] LABS: Platelet Count Result 371 k/mm3 (150-375)
[2023-08-28 15:05] LABS: Immature Platelet Fraction Pct 2.8 % (0.9-11.2)
[2023-08-28 16:57] LABS: Iron 41 ug/dL (49-181)
[2023-08-28 17:06] LABS: Alanine Aminotransferase 10 U/L (6-50); Albumin Level 4.4 g/dL (3.5-5.1); Alkaline Phosphatase 100 U/L (38-126); Anion Gap 13 mmol/L (4-12); Aspartate Amino Transferase 19 U/L (17-59); Bilirubin,Total 0.7 mg/dL (0.2-1.3); Blood Urea Nitrogen 13 mg/dL (9-20); Carbon Dioxide 23 mmol/L (22-30); Chloride 97 mmol/L (98-107); Estimated Glomerular Filt Rate > 60; Glucose 92 mg/dL (65-110); Lactate Dehydrogenase 171 U/L (120-246); Percent Iron Saturation 11 % (20-50); Potassium 3.8 mmol/L (3.4-5.0); Sodium 133 mmol/L (137-145)
[2023-08-28 18:13] LABS: Folic Acid > 20.0 ng/mL (2.76->20)
[2023-08-29 11:59] LABS: Haptoglobin 249 mg/dL (43-212)
[2023-09-01 12:03] LABS: Methylmalonic Acid 150 nmol/L (69-390)
[2023-09-04 12:03] LABS: Soluble Transferrin Receptor 2.35 mg/L (0.76-1.76)
== END 2023-08-28 14:30 | disposition home or self-care (01) ==
LOC: ANHLAB 14:33
PROVIDERS: Nurse Practitioner Family; PCP Family Medicine; Visit Provider Internal Medicine Hematology & Oncology
DX: D64.9 Anemia, unspecified (principal); D59.9 Acquired hemolytic anemia, unspecified
CPT/HCPCS: 36415; 80053; 82607; 82728; 82746; 83010; 83540; 83550; 83615; 83921; 84238; 85025; 85046; 85055; 86880

== ENCOUNTER 2024-03-18 15:27 | Outpatient (CLI) | payer MEDICARE, SELFPAY ==
--- OUTSIDE RECORDS SUMMARY | 2024-03-18 15:36 | XMS_ITS | Encounter Summary ---
Author Organization [facility] Address [address] [place] [address] Care Team Providers Care Soda Fountain Operator Name Role Phone Sammy Rios MD Primary Care Provider Encounter Details Date Type Department Care Team (Late st Contact Info) Description 05/27/2016 Orders Only [facility] ProviderMyla MD [facility] [place] [address] Social History Tobacco Use Types Packs/Day Years Used Date Smoking Tobacco: Never Alcohol Use Standard Drinks/Week Comments Yes 0 (1 standard drink = 0.6 oz pur e alcohol) Sex and Gender Information Value Date Recorded Sex Assigned at Not on file Legal Sex Male 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 Historical Provider [facility] Final Result documented in this encounter Visit Diagnoses Not on filedocumented in this encounter Care Teams Soda Fountain Operator Relationship Specialty Start Date End Date Sammy Rios MD [address] [facility] [address] [place] [address] PCP - General 05/06/16 documented as of this encounter
--- OUTSIDE RECORDS SUMMARY | 2024-03-18 15:36 | XMS_ITS | Clinical Summary ---
Author Organization [facility] Nadine Todd Address [address] [place] [address] Care Team Providers Care Shoe Stitcher Odd Name Role Phone Sammy Rios MD Primary Care Provider [phone] Allergies No known active allergies Medications rivaroxaban (Xarelto) 20 mg Tablet Take 20 mg by mouth daily. 05/18/2023 Active furosemide (LASIX) 20 mg tablet Take 20 mg by mouth daily. 08/15/2023 Active metoprolol tartrate (LOPRESSOR) 50 mg tablet Take 100 mg by mouth 2 times daily. 09/28/2022 Active spironolactone (ALDACTONE) 25 mg tablet Take 25 mg by mouth daily. 05/20/2022 Active empagliflozin (JARDIANCE) 10 mg tablet Take 10 mg by mouth daily. 04/06/2023 Active losartan (COZAAR) 25 mg tablet Take 25 mg by mouth daily. 03/28/2023 Active pravastatin (PRAVACHOL) 40 mg tablet Take 40 mg by mouth daily with supper. Active methotrexate (RHEUMATREX) 2.5 mg Tablet Take 20 mg by mouth every 7 days. Active semaglutide (OZEMPIC) 2 mg/dose (8 mg/3 mL) Pen Injector 03/22/2022 Active metFORMIN (GLUCOPHAGE XR) 500 mg Extended Release 24 hour tablet Take 500 mg by mouth 3 times daily. 03/08/2021 Active omeprazole (PriLOSEC) 20 mg Capsule, Delayed Release(E.C.) Take 20 mg by mouth daily. Active miconazole nitrate (REMEDY-AF,ZEAS ORB-AF) 2 % PowderIndicatio ns:Yeast infection of the skin Apply to affected area 2 times daily. 43 Gram 2 08/28/2023 Active cyanocobalamin 1,000 mcg TabletIndicatio ns:B12 deficiency Take 1 Tablet (1,000 mcg) by mouth daily. 90 Tablet 3 09/04/2023 Active Active Problems No known active problems Encounters Date Type Department Care Team Description 02/13/2024 External Device Data [facility] ABSTRACTION Provider, Abstract 01/11/2024 Orders Only [facility] - [place] [address] [place] [address] Chandana Del Valle MD 01/08/2024 Orders Only [facility] - [place] [address] [place] [address] Chandana Del Valle MD from Last 3 Months Family History Medical History Relation Name Comments Prostate Cancer Father Colon Cancer Mother Diabetes Mother Heart Disease Mother SLE Mother No Known Problems Sister after shoulder surgery Relation Name Status Comments Father Mother Sister Social History Tobacco Use Types Packs/Day Years Used Date Smoking Tobacco: Former Cigarettes 2 25 0 04/06/1973 - 04/06/1998 Smokeless Tobacco: Never Tobacco Cessation:Counseling Given: Not Answered Alcohol Use Standard Drinks/Week Comments Yes 0 (1 standard drink = 0.6 oz pur e alcohol) Socially Sex and Gender Information Value Date Recorded Sex Assigned at Not on file Legal Sex Male 1:23 PM CDT Gender Identity Not on file Sexual Orientation Not on file Last Filed Vital Signs Vital Sign Reading Time Taken Comments Blood Pressure 114/64 12/06/2023 2:25 PM CDT Pulse 87 12/06/2023 2:21 PM CDT Temperature 36.7 C (98 F) 12/06/2023 2:21 PM CDT Respiratory Rate 16 12/06/2023 2:21 PM CDT Oxygen Saturation 97% 12/06/2023 2:21 PM CDT Inhaled Oxygen Concentration - - Weight 112.4 kg (247 lb 12.8 oz) 08/28/2023 1:37 PM CDT Height 180.3 cm (5' 11 ) 08/28/2023 1:37 PM CDT Body Mass Index 34.56 08/28/2023 1:37 PM CDT Plan of Treatment Upcoming Encounters Date Type Department Care Team (Late st Contact Info) Description 03/26/2024 2:00 PM COLLECTIONS PROFESSIONAL Office Visit [facility] - [place] [address] [place] [address] Chandana Del Valle MD [address] [place] [address] Health Maintenance Due Date Last Done Comments DIABETES ANNUAL FOOT EXAM 1974 DIABETES ANNUAL RETINAL EXAM 1974 DIABETES MICROALBUMIN ANNUAL SCREEN 1974 LDL CHOLESTEROL ANNUAL 1974 DTAP/TDAP/TD VACCINES (1 - Tdap) 11/26/1975 Traditional Medicare (ACO) A nnual Wellness Visit 11/26/1975 COLORECTAL SCREENING 2001 Colorectal Cancer Screening 2001 FIT-DNA Q 3 years 2001 FIT/FOBT Q 1 year 2001 Flex Sig/CT Colonography Q 5 years 2001 RSV VACCINE (60+ or ) (1 - Risk 60-74 years 1-dose series) 2016 Abdominal Aortic Aneurysm (AAA) Screening 2021 INFLUENZA VACCINE (#1) 2023 10/31/2022 DIABETES HBA1C Q 6 MONTHS 01/18/2024 07/19/2023 PNEUMOCOCCAL VACCINE 65+ YEARS Completed 09/12/2022 ZOSTER VACCINE Completed 12/13/2022, 09/12/2022 Procedures Procedure Name Priority Date/Time Associated Diagnosis Comments IRON LEVEL Routine 01/09/2024 8:14 AM COLLECTIONS PROFESSIONAL BASIC METABOLIC PANEL Routine 01/02/2024 1:01 PM COLLECTIONS PROFESSIONAL from Last 3 Months Results * IRON LEVEL (01/09/2024 8:14 AM COLLECTIONS PROFESSIONAL) Blood Chandana Del Valle MD CHEMISTRY ORDERABLES Final Resu lt * BASIC METABOLIC PANEL (01/02/2024 1:01 PM COLLECTIONS PROFESSIONAL) Blood Chandana Del Valle MD CHEMISTRY ORDERABLES Final Resu lt from Last 3 Months Insurance [employer] [employer] INSURANCE MEDICARE PART A AND B Care Teams Shoe Stitcher Odd Relationship Specialty Start Date End Date Sammy Rios MD [address] [facility] [address] [place] [address] PCP - General Family Practice 12/08/23
--- OUTSIDE RECORDS SUMMARY | 2024-03-18 15:36 | XMS_ITS | Clinical Summary ---
Author Organization [facility] [address] Address [address] [place] [address] Care Team Providers Care Claim Processor Name Role Phone Sammy Rios MD Primary Care Provider Allergies No known active allergies Medications omeprazole 20 mg tablet,delayed release (DR/EC) take 1 by Oral route every day 0 0 10/09/19 16 Active metFORMIN XR (GLUCOPHAGE XR) 500 mg 24 hr tablet 03/08/19 22 Active semaglutide (OZEMPIC) 2 mg/dose (8 mg/3 mL) pen injector injection 03/22/19 23 Active [facility] Active alcohol swabs pads, medicatedIndicat ions:Use one swab to clean the skin prior to each dose of Methotrexate Apply 100 each topically once a week 100 each 12/22/19 23 Active losartan (COZAAR) 25 mg tablet TAKE 1 TABLET(25 MG) BY MOUTH DAILY 30 tablet 11 03/28/19 24 Active empagliflozin (JARDIANCE) 10 mg tablet Take 1 tablet (10 mg total) by mouth daily 90 tablet 3 04/06/19 24 Active Xarelto 20 mg tablet TAKE 1 TABLET(20 MG) BY MOUTH DAILY 90 tablet 3 05/18/19 24 Active furosemide (LASIX) 20 mg tabletIndication s:Swelling TAKE 1 TABLET(20 MG) BY MOUTH DAILY 90 tablet 2 08/15/19 24 Active metoprolol tartrate (LOPRESSOR) 50 mg immediate release tablet Take 2 tablets (100 mg total) by mouth 2 (two) times a day 360 tablet 3 10/03/19 24 Active folic acid (FOLVITE) 1 mg tabletIndication s:Rheumatoid arthritis with positive rheumatoid factor, involving unspecified site (HCC) Take 1 tablet (1 mg total) by mouth daily 90 tablet 3 10/23/19 24 025 Active cyanocobalamin (Vitamin B-12) 1,000 mcg tablet Take 1 tablet (1,000 mcg total) by mouth daily 09/04/19 24 Active pravastatin (PRAVACHOL) 40 mg tablet Take 1 tablet (40 mg total) by mouth daily 08/15/19 24 Active spironolactone (ALDACTONE) 25 mg tablet Take 1 tablet (25 mg total) by mouth daily 90 tablet 3 11/20/19 24 025 Active ascorbic acid (VITAMIN C ORAL) Take 500 mg by mouth daily Active ferrous sulfate 325 mg (65 mg of elemental iron) tabletIndication s:Iron Deficiency Anemia Take 1 tablet (65 mg of elemental iron total) by mouth 2 (two) times a day Active methotrexate 25 mg/mL injection solutionIndicati ons:Rheumatoid Arthritis Inject 1 mL (25 mg total) under the skin every 7 days 12 mL 01/02/20 24 025 Active syringe with needle (Tuberculin Syringe) 1 mL 27 x 1/2 syringeIndicatio ns:Rheumatoid arthritis with positive rheumatoid factor, involving unspecified site (HCC) Use one syringe for each dose of Methotrexate once a week 50 each 01/02/20 24 Active hydroxychloroqui ne (PLAQUENIL) 200 mg tabletIndication s:Rheumatoid Arthritis Take 2 tablets (400 mg total) by mouth daily 180 tablet 03/04/19 25 025 Active hydroxychloroqui ne (PLAQUENIL) 200 mg tabletIndication s:Rheumatoid Arthritis Take 2 tablets (400 mg total) by mouth daily 180 tablet 1 06/27/19 24 025 Discontinu ed(Reorder ) predniSONE (DELTASONE) 10 mg tabletIndication s:autoimmune disease Take 2 tablets (20 mg) by mouth daily for 5 days, THEN 1 tablet (10 mg) daily for 5 days. 15 tablet 03/04/19 25 025 Hospital, Clinic, or Other Facility Administered Medication Ordered Dose Route Frequency Start Date End Date Status lidocaine (XYLOCAINE) 20 mg/mL (2 %) injection 5 mLIndications:Admini stration of Local Anesthesia 5 mL OTHER One-Time Injection 03/15/2024 5 Ended methylPREDNISolone acetate (DEPO-medrol) injection 80 mgIndications:Primar y osteoarthritis of left knee 80 mg intra-artic One-Time Injection 03/15/2024 5 Ended Active Problems Problem Noted Date Diagnosed Date Impaired sensation to light touch 10/23/2023 Rheumatoid arthritis with positive rheumatoid fa ctor 10/23/2023 Rheumatoid arthritis involvi ng multiple sites with positive rheumatoid factor ([facility]) 02/13/2023 Hyperlipidemia associated with type 2 diabetes m ellitus 03/24/2021 H/O cardiomyopathy 03/10/2020 Lower extremity edema 06/10/2019 Chronic diastolic heart failure 02/20/2019 Hyponatremia 02/20/2019 Other emphysema 02/20/2019 Class 3 obesity 07/29/2016 Assessment & Plan (07/29/2016 7:01 PM CDT): Has lost 17 lb on the Atkins diet so far. Congratulated. Dyspnea on exertion 05/06/2016 Overview (07/01/2016): MCNEIL (dyspnea on exertion) Multiple-type hyperlipidemia 05/06/2016 Overview (07/01/2016): Mixed hyperlipidemia Obstructive sleep apnea syndrome 03/25/2016 Overview (05/12/2016): EMMA (obstructive sleep apnea) Assessment & Plan (07/29/2016 7:00 PM CDT): Tolerating CPAP Chronic anticoagulation 02/12/2016 Overview (05/13/2016): Chronic anticoagulation Assessment & Plan (07/29/2016 6:59 PM CDT): Tolerating Xarelto without bleeding Diastolic dysfunction 02/12/2016 Overview (05/13/2016): Diastolic dysfunction Persistent atrial fibrillation 02/12/2016 Overview (05/13/2016): Persistent atrial fibrillation Assessment & Plan (07/29/2016 6:58 PM CDT): Heart rate seems well controlled now, feeling better. Failed 1 cardioversion. Discussed trying again, perhaps with an antiarrhythmic on board to help maintain NSR. We decided that since he is feeling well, we will continue rate control anticoagulation strategy. Cardiomyopathy 02/12/2016 Overview (05/13/2016): Cardiomyopathy, unspecified type Assessment & Plan (07/29/2016 6:59 PM CDT): Cardiomyopathy with EF 40-45%, idiopathic, has not improved much since we have obtain rate control. Stress test showed a fixed defect but catheterization showed no CAD next has diastolic dysfunction next euvolemic, doing well with lisinopril and metoprolol Non-rheumatic mitral regurgitation 02/12/2016 Overview (05/13/2016): Nonrheumatic mitral valve regurgitation Assessment & Plan (07/29/2016 7:00 PM CDT): Mild to moderate mitral regurgitation which will need to be re-evaluated periodically Essential hypertension 10/09/2015 Overview (05/13/2016): Essential hypertension Assessment & Plan (07/29/2016 7:00 PM CDT): Blood pressure is at goal Resolved Problems Problem Noted Date Diagnosed Date Resolved Date Body mass index 40+ - severely obese 03/25/2016 06/10/2017 Overview (05/13/2016): Morbid obesity with BMI of 45.0-49.9, adult Atrial fibrillation ([facility]) 10/09/2015 06/10/2017 Overview (05/12/2016): Atrial fibrillation, new onset Hyperlipidemia 10/09/2015 06/10/2017 Overview (05/12/2016): Hyperlipidemia, unspecified Morbid obesity 10/09/2015 06/10/2017 Overview (05/13/2016): Morbid obesity due to excess calories Encounters Date Type Department Care Team Description 03/15/2024 2:00 PM CATERING COORDINATOR Office Visit [facility] Medical [facility] Sports Medicine and Primary Care at [address] [phone] Guillermo Das DO Effusion of right knee joint (Primary Dx); Primary osteoarthritis of left knee; Internal derangement of right knee 03/01/2024 3:30 PM CATERING COORDINATOR Office Visit [facility] Sports Medicine and Primary Care at [address] [phone] Guillermo Das DO Bilateral primary osteoarthritis of knee (Primary Dx) 01/22/2024 4:05 PM CATERING COORDINATOR - 01/22/2024 11:59 PM CATERING COORDINATOR Hospital Encounter [address] [address] Diabetes mellitus without complication (CMS/HCC) (HCC) Discharge Disposition: Discharge to home or self care 01/22/2024 3:45 PM CATERING COORDINATOR Lab [facility] Medical [facility] Outpatient Lab at [address] [phone] Diabetes mellitus without complication (CMS/HCC) (HCC) (Primary Dx) 01/22/2024 2:45 PM CATERING COORDINATOR Office Visit [facility] Orthopedic and Sports Medicine [address] [place] [phone] Irwin Potter PA Primary osteoarthritis of both knees (Primary Dx) 01/22/2024 Orders Only [facility] Sports Medicine [address] [place] [phone] Irwin Potter PA Primary osteoarthritis of both knees (Primary Dx); Acute bilateral knee pain 01/02/2024 11:40 AM CATERING COORDINATOR - 01/02/2024 11:59 PM CATERING COORDINATOR Hospital Encounter [address] [address] Anemia, unspecified Discharge Disposition: Discharge to home or self care 01/02/2024 11:30 AM CATERING COORDINATOR Lab [facility] Medical [facility] Outpatient Lab at [address] [phone] Anemia, unspecified (Primary Dx); Essential hypertension; Hyperlipidemia associated with type 2 diabetes mellitus (HCC); Rheumatoid arthritis with positive rheumatoid factor (HCC) 01/02/2024 10:00 AM CATERING COORDINATOR Office Visit [facility] Rheumatology [address] [place] [address] [address] [place] [address] Rosemarie Vazquez MD Rheumatoid arthritis with positive rheumatoid factor, involving unspecified site (HCC) (Primary Dx); High risk medication use; Primary osteoarthritis of both knees; Neuropathy (CMS/HCC); Transportation insecurity 12/25/2023 Telephone [facility] Orthopedics and Sports Medicine [address] [place] [address] Oziel Barney MD from Last 3 Months Immunizations Name Administration Dates Next Due Influenza, Quadrivalent, Hig h Dose, Preservative Free, Intrr 10/31/2022 Pneumococcal Conjugate Pcv20 09/12/2022 ZOSTER Recombinant 12/13/2022,09/12/2022 Surgical History Surgery Date Site/Laterality Comments VASECTOMY CATARACT EXTRACTION 02/2022 Medical History Medical History Date Comments Hx Other Medical morbid obesity; Comments: ELU 10/09/2015 - Arthritis Arthritis; Comme nts: EL 10/09/2015 - Hx Other Medical pseudogout; Com ments: EL 10/09/2015 - Clotting disorder (CMS/HCC) (HCC) Xeralto Depression Wifes cancer Heart disease why I'm here Hypertension slightly Sleep apnea Diabetes mellitus (HCC) 02/08/21 Family History Medical History Relation Name Comments Arthritis Father Dad Cancer Father Dad Cancer, unknown ; Cause of : Cancer, unknown Memory loss Father Dad Allergy (severe) Mother Mom Arthritis Mother Mom Cancer Mother Mom Cancer, unknown ; Cause of : Cancer, unknown Rashes / Skin problems Mother Mom Relation Name Status Comments Father Dad (Age 89) Mother Mom (Age 82) Social History Tobacco Use Types Packs/Day Years Used Date Smoking Tobacco: Former Cigarettes Q uit: 04/28/1998 Passive Smoke Exposure: Never Smokeless Tobacco: Never Tobacco Cessation:Counseling Given: Not Answered Alcohol Use Standard Drinks/Week Comments Yes 6 (1 standard drink = 0.6 oz pur e alcohol) Social Connection and Isolation Panel [NHANES] A nswer Date Recorded In a typical week, how many times do you talk on the phone with family, friends, or neighbors? Twice a week 01/02/2024 How often do you get togethe r with friends or relatives? Three times a week 01/02/2024 How often do you attend chur ch or sabianism services? Never 01/02/2024 Do you belong to any clubs o r organizations such as buddhist groups, unions, fraternal or athletic groups, or school groups? No 01/02/2024 How often do you attend meet ings of the clubs or organizations you belong to? Not asked 01/02/2024 Are you , , di vorced, , never , or living with a partner? 01/02/2024 AUDIT-C Answer Date Recorded Q1: How often do you have a drink containing alcohol? Never 03/01/2024 Q2: How many drinks containi ng alcohol do you have on a typical day when you are drinking? Patient does not drink Q3: How often do you have si x or more drinks on one occasion? Never 03/01/2024 Overall Financial Resource Strain (CARDIA) Answe r Date Recorded How hard is it for you to pa y for the very basics like food, housing, medical care, and heating? Not hard at all 01/02/2024 PHQ-2 Answer Date Recorded Patient Health Questionnaire-2 Score 3 01/02/2024 [facility] - Occupational Stress Questionnaire Answer Date Recorded Do you feel stress - tense, restless, nervous, or anxious, or unable to sleep at night because your mind is troubled all the time - these days? Rather much 01/02/2024 Exercise Vital Sign Answer Date Recorde d On average, how many days pe r week do you engage in moderate to strenuous exercise (like a brisk walk)? 0 days 01/02/2024 On average, how many minutes do you engage in exercise at this level? 0 min 01/02/2024 Hunger Vital Sign Answer Date Recorded Within the past 12 months, y ou worried that your food would run out before you got the money to buy more. Never true 01/02/20 24 Within the past 12 months, t he food you bought just didn't last and you didn't have money to get more. Never true 01/02/2024 PRAPARE - Transportation Answer Date Re corded In the past 12 months, has l ack of transportation kept you from medical appointments or from getting medications? No 12/08 In the past 12 months, has l ack of transportation kept you from meetings, work, or from getting things needed for daily living? No 01/02/2024 Housing Stability Vital Sign Answer Vaibhav e Recorded In the last 12 months, was t here a time when you were not able to pay the mortgage or rent on time? No 12/13/2022 In the last 12 months, how many places have you lived? 1 12/13/2022 In the last 12 months, was t here a time when you did not have a steady place to sleep or slept in a detention (including now)? No 12/13/2022 Sex and Gender Information Value Date Recorded Sex Assigned at Not on file Legal Sex Male 11:33 PM CATERING COORDINATOR Gender Identity Not on file Sexual Orientation Choose not to disclose 2020 9:41 AM CATERING COORDINATOR Obstetrics History Last Filed Vital Signs Vital Sign Reading Time Taken Comments Blood Pressure 103/73 03/15/2024 2:16 PM CATERING COORDINATOR Pulse 73 03/15/2024 2:16 PM CATERING COORDINATOR Temperature 36.1 C (97 F) 09/27/2023 10:43 AM CDT Respiratory Rate 16 03/01/2024 3:45 PM CATERING COORDINATOR Oxygen Saturation 100% 01/02/2024 9:53 AM CATERING COORDINATOR Inhaled Oxygen Concentration - - Weight 101.2 kg (223 lb) 01/22/2024 2:57 PM CATERING COORDINATOR Height 180.3 cm (5' 11 ) 03/15/2024 2:16 PM CATERING COORDINATOR Body Mass Index 31.1 01/22/2024 2:57 PM CATERING COORDINATOR Plan of Treatment Health Maintenance Due Date Last Done Comments Colon Cancer Screening-Colonoscopy 1956 Fall Risk Assessment 1955 Prostate Cancer Screening-PSA 1955 Dilated Eye Exam 1956 Foot Exam 1956 DTaP/Tdap/Td Vaccine (1 - Tdap) 11/26/1967 Abdominal Aortic Aneurysm (A AA) Screen 2021 Well Visit 65+ 2021 Covid-19 Vaccine (5 - 2024-2 5 season) 2023 10/29/2021, 12/07/2020, 05/08/2020, Additional history exists Influenza Vaccine (#1) 2023 3, 10/29/2021, 11/13/2020, Additional history exists Albumin Creatinine Ratio, Urine 07/18/2024 Lipid Panel 07/18/2024 07/19/2023, 0 09/2023, 02/08/2022, Additional history exists Hemoglobin A1C 07/22/2024 01/22/2024, 07/19/2023 Depression Screening 01/01/2025 01/02/2024, 09/27/2023, 06/27/2023, Additional history exists eGFR 01/21/2025 01/22/2024, 12/08, 11/30/2023, Additional history exists Hepatitis B Screening Completed 09/12/2022 Hepatitis C Screening Completed 09/12/2022 Pneumococcal vaccine 65+ Completed 09/12/2022 Zoster Vaccine Completed 12/13/2022, 08/2022, 10/08/2015 Procedures Procedure Name Priority Date/Time Associated Diagnosis Comments KS ARTHROCENTESIS ASPIR&/INJ MAJOR JT/BURSA W/US Routine 03/15/2024 2:00 PM CATERING COORDINATOR Effusion of right knee joint Internal derangement of right knee KS ARTHROCENTESIS ASPIR&/INJ MAJOR JT/BURSA W/US Routine 03/15/2024 2:00 PM CATERING COORDINATOR Primary osteoarthritis of left knee EGFR Routine 01/22/2024 4:05 PM CATERING COORDINATOR Diabetes mellitus without complication (CMS/HCC) (HCC) HEMOGLOBIN A1C Routine 01/22/2024 4:05 PM CATERING COORDINATOR Diabetes mellitus without complication (CMS/HCC) (HCC) COMPREHENSIVE METABOLIC PANEL Routine 01/22/2024 4:05 PM CATERING COORDINATOR Diabetes mellitus without complication (CMS/HCC) (HCC) EGFR Routine 01/02/2024 11:40 AM CATERING COORDINATOR Anemia, unspecified DIFFERENTIAL AUTO Routine 01/02/2024 11: 40 AM CATERING COORDINATOR Anemia, unspecified BASIC METABOLIC PANEL Routine 01/02/2024 11:40 AM CATERING COORDINATOR Anemia, unspecified CBC WITH AUTO DIFFERENTIAL Routine 01/02/2024 11:40 AM CATERING COORDINATOR Anemia, unspecified FERRITIN Routine 01/02/2024 11:40 AM CATERING COORDINATOR Anemia, unspecified VITAMIN B12 Routine 01/02/2024 11:40 AM CATERING COORDINATOR Anemia, unspecified FOLATE Routine 01/02/2024 11:40 AM CATERING COORDINATOR Anemia, unspecified LIPID PANEL Routine 07/19/2023 10:17 AM CDT Routine general medical examination at a health care facility Diabetes mellitus (HCC) Essential hypertension, malignant Chronic atrial fibrillation (HCC) Chronic combined systolic and diastolic heart failure (CMS/HCC) (HCC) Hyperlipemia ALBUMIN CREATININE RATIO, URINE Routine 07/19/2023 10:17 AM CDT Routine general medical examination at a health care facility Diabetes mellitus (HCC) Essential hypertension, malignant Chronic atrial fibrillation (HCC) Chronic combined systolic and diastolic heart failure (CMS/HCC) (HCC) Hyperlipemia HEPATITIS C ANTIBODY Routine 09/12/2022 12:11 PM CDT Positive MY (antinuclear antibody) Arthralgia, unspecified joint Rheumatoid arthritis with positive rheumatoid factor, involving unspecified site (HCC) Screening for viral disease from Last 3 Months or Most Recently Relevant to Health Maintenance Results * KS ARTHROCENTESIS ASPIR&/INJ MAJOR JT/BURSA W/US (03/15/2024 2:00 PM CATERING COORDINATOR) Narrative Guillermo Das DO - 03/15/2024 2:00 PM CATERING COORDINATOR Guillermo Das DO 03/15/2024 2:43 PM Large Joint Injection w/ Ultrasound Guidance: R knee Performed by: Guillermo Das DO Authorized by: Guillermo Das DO Large Joint Injection/Aspiration: Consent Given by: Patient Site marked: the procedure site was marked Timeout: prior to procedure the correct patient, procedure, and site was verified Verbal consent obtained: Yes Supporting Documentation: Indications: Pain Procedure Details: Location: Knee Site: R knee Prep: patient was prepped and draped in usual sterile fashion Prep: patient was prepped using a clean technique Needle Size: 18 G Approach: Lateral Ultrasound guided: Yes Fluroscopic guidance: No Ultrasound guidance used for: Real-time guidance Sterile ultrasond techniques: Sterile gel and sterile probe covers were used Ultrasound note: Ultrasound guided right knee aspiration Patient name: Monroe May Performing physician: KARL Mcgraw DO, CAQSM Reason for procedure: Right knee swelling and pain with osteoarthritis Patient is supine with the right knee in passive 30 of flexion. The lateral knee was sterilized using Hibiclens. The L4-12 T transducer was placed on the proximal portion of the knee identifying the suprapatellar recess and joint capsule in long axis. The probe was moved to short axis and again the joint capsule was identified. An 18 gauge 1.5 in needle was inserted on the lateral aspect of the knee at the level of the capsule, and the needle tip was identified in the subcutaneous tissue. The needle was advanced, in real time, to the capsule and once noted within the capsule, attempt was made at aspiration in multiple areas of the knee capsule. No fluid was able to be aspirated. Needle was removed, the area was cleansed, and covered with a Band-Aid. Impression: 1 - Unsuccessful aspiration of the right knee capsule under ultrasound guidance us Guillermo Das DO IN CLINIC/BEDSIDE [facility] Final Result * KS ARTHROCENTESIS ASPIR&/INJ MAJOR JT/BURSA W/US (03/15/2024 2:00 PM CATERING COORDINATOR) Narrative Guillermo Das DO - 03/15/2024 2:00 PM CATERING COORDINATOR Guillermo Das DO 03/15/2024 2:43 PM Large Joint Injection w/ Ultrasound Guidance: L knee Performed by: Guillermo Das DO Authorized by: Guillermo Das DO Large Joint Injection/Aspiration: Consent Given by: Patient Site marked: the procedure site was marked Timeout: prior to procedure the correct patient, procedure, and site was verified Verbal consent obtained: Yes Supporting Documentation: Indications: Pain Procedure Details: Location: Knee Site: L knee Prep: patient was prepped and draped in usual sterile fashion Prep: patient was prepped using a clean technique Needle Size: 22 G Approach: Lateral Ultrasound guided: Yes Fluroscopic guidance: No Ultrasound guidance used for: Real-time guidance Sterile ultrasond techniques: Sterile gel and sterile probe covers were used Ultrasound note: Ultrasound guided left knee injection Patient name: Monroe May Performing physician: Guillermo Das DO, KARL, CAM Reason for procedure: Left knee Osteoarthritis Patient is supine with the left knee in passive 30 of flexion. The lateral knee was sterilized using Hibiclens. The L4-12 T transducer was placed on the proximal portion of the knee identifying the suprapatellar recess and joint capsule in long axis. The probe was moved to short axis and again the joint capsule was identified. A 22 gauge 1.5 in needle was inserted on the lateral aspect of the knee at the level of the capsule, and the needle tip was identified in the subcutaneous tissue. The needle was advanced, in real time, to the capsule and once noted within the capsule, a substrate of 5 cc of 2% lidocaine without epinephrine + 80mg of DepoMedrol were injected into the joint capsule. Flow of fluid within the joint capsule was noted for confirmation of placement. Needle was removed, the area was cleansed, and covered with a Band-Aid. Impression: 1 - successful injection of the left knee capsule under ultrasound guidance Medications: 5 mL lidocaine 20 mg/mL (2 %); 80 mg methylPREDNISolone acetate 80 mg/mL us Guillermo Das DO IN CLINIC/BEDSIDE [facility] Final Result * eGFR (01/22/2024 4:05 PM CATERING COORDINATOR) eGFR >90 >=60 mL/min/1. 73 m2 Comment: Interpretive Data Reference Interval Normal >/= 90 mL/min/1.73m2 Mildly decreased* 60 - 89 mL/min/1.73m2 Mildly to moderately decreased 45 - 59 mL/min/1.73m2 Moderately to severely decreased 30 - 44 mL/min/1.73m2 Severely decreased 15 - 29 mL/min/1.73m2 Kidney Failure < 15 mL/min/1.73m2 *Relative to young adult level Estimated glomerular filtration rate is determined by the 2020 CKD-EPI equation recommended by the National Kidney Foundation (A Unifying Approach to GFR Estimation: Recommendations of the NKF-ASK Task Force on Reassessing the Inclusion of Race in Diagnosing Kidney Disease, JASN 2020). The CKD-EPI equation should not be used for patients with unstable renal function and has not been validated in children and those over 70. Current interpretive data was last reviewed 2020. Blood 01/22/2024 4:05 PM CATERING COORDINATOR 01/22/2024 8:48 PM CATERING COORDINATOR Sammy Rios MD LAB BLOOD ORDERABLES Fi nal Result Performing Organization Address [facility] Co de Phone Number RAINER RODRÍGUEZ [address] [place] [address] * Hemoglobin A1c (01/22/2024 4:05 PM CATERING COORDINATOR) Hgb A1C 4.7 4.0 - 5.6 % Estimated Average Glucose 88 mg/dL RAINER RODRÍGUEZ Comment: The ADA recommends reporting an estimated Average Glucose (eAG) with all Hemoglobin A1c results using the equation derived from a study of 507 normal and diabetic adults. Minority populations were underrepresented and children were not included. (Diabetes Care 31:5681-7827, 2008). The eAG is not equivalent to a fasting glucose. Blood (Blood, Venous) 01/22/2024 4:05 PM CATERING COORDINATOR 01/22/2024 8:39 PM CATERING COORDINATOR Narrative RAINER RODRÍGUEZ - 01/22/2024 9:06 PM CATERING COORDINATOR FAX RESULTS TO SAMMY RIOS [phone] us Sammy Rios MD LAB BLOOD ORDERABLES Fi nal Result Performing Organization Address [facility] Co de Phone Number RAINER [id number] [place] [address] * (ABNORMAL) Comprehensive metabolic panel (01/22/2024 4:05 PM CATERING COORDINATOR) Sodium 135 135 - 145 mmol/L Potassium, pl 3.6 3.3 - 4.9 mmol/L [facility] Chloride 96(L) 97 - 110 mmol/L [facility] CO2 24 22 - 32 mmol/L [facility] Anion gap 15 2 - 15 mmol/L [facility] BUN 9 6 - 25 mg/dL [facility] Creatinine 0.60(L) 0.80 - 1.30 mg/dL [facility] Glucose 96 70 - 199 mg/dL [facility] Comment: Interpretive Data Fasting glucose >/= 126 mg/dl is diagnostic for diabetes. Fasting is defined as no caloric intake for at least 8 hours. Fasting glucose between 100 mg/dl to 125 mg/dl is diagnostic of prediabetes. In a patient with classic symptoms of hyperglycemia or hyperglycemic crisis, a random glucose >/= 200 mg/dl is diagnostic for diabetes. In the absence of unequivocal hyperglycemia, results should be confirmed by repeat testing. The classification and Diagnosis of Diabetes Diabetes Care 202; 46: S19-S40. Current interpretive data was last revised 2022. Calcium 8.6 8.5 - 10.3 mg/dL [facility] Bilirubin, total 0.4 0.1 - 1.2 mg/dL [facility] Protein, pl 7.8 6.5 - 8.5 g/dL [facility] Albumin 3.3(L) 3.5 - 5.0 g/dL [facility] Alk phos 132(H) 40 - 130 Units/L [facility] ALT <5(L) 7 - 55 Units/L [facility] AST 11 10 - 50 Units/L [facility] Blood (Blood, Venous) 01/22/2024 4:05 PM CATERING COORDINATOR 01/22/2024 8:39 PM CATERING COORDINATOR us Sammy Rios MD LAB BLOOD ORDERABLES Fi nal Result [facility] [address] Department [place] [address] * eGFR (01/02/2024 11:40 AM CATERING COORDINATOR) eGFR >90 >=60 mL/min/1. 73 m2 Comment: Interpretive Data Reference Interval Normal >/= 90 mL/min/1.73m2 Mildly decreased* 60 - 89 mL/min/1.73m2 Mildly to moderately decreased 45 - 59 mL/min/1.73m2 Moderately to severely decreased 30 - 44 mL/min/1.73m2 Severely decreased 15 - 29 mL/min/1.73m2 Kidney Failure < 15 mL/min/1.73m2 *Relative to young adult level Estimated glomerular filtration rate is determined by the 2020 CKD-EPI equation recommended by the National Kidney Foundation (A Unifying Approach to GFR Estimation: Recommendations of the NKF-ASK Task Force on Reassessing the Inclusion of Race in Diagnosing Kidney Disease, JASN 2020). The CKD-EPI equation should not be used for patients with unstable renal function and has not been validated in children and those over 70. Current interpretive data was last reviewed 2020. Blood 01/02/2024 11:4 0 AM CATERING COORDINATOR 01/02/2024 5:28 PM CATERING COORDINATOR Chandana DelV alle MD LAB BLOOD ORDERABLES Final Res ult [facility] [address] Department of Laboratories [place] [id number] * (ABNORMAL) Differential, auto (01/02/2024 11:40 AM CATERING COORDINATOR) Neutrophil abs 7.5(H) 1.5 - 6.5 K/cumm Imm gran abs 0.1 0.0 - 0.1 K/cumm [facility] Lymphocyte abs 1.4 0.8 - 3.3 K/cumm [facility] Monocyte abs 0.3 0.2 - 0.8 K/cumm [facility] Eosinophil abs 0.0 0.0 - 0.5 K/cumm [facility] Basophil abs 0.0 0.0 - 0.1 K/cumm [facility] Neutrophil pct 81.2 % [facility] Comment: Interpretive Data Percent cell count reference ranges are not reported, since discordance with absolute values may lead to misinterpretation of CBC data. Current Interpretive Data was last revised on 2017. Imm gran pct 0.6 % [facility] Comment: Interpretive Data Percent cell count reference ranges are not reported, since discordance with absolute values may lead to misinterpretation of CBC data. Current Interpretive Data was last revised on 2017. Lymphocyte pct 14.6 % [facility] Comment: Interpretive Data Percent cell count reference ranges are not reported, since discordance with absolute values may lead to misinterpretation of CBC data. Current Interpretive Data was last revised on 2017. Monocyte pct 2.8 % [facility] Comment: Interpretive Data Percent cell count reference ranges are not reported, since discordance with absolute values may lead to misinterpretation of CBC data. Current Interpretive Data was last revised on 2017. Eosinophil pct 0.4 % [facility] Comment: Interpretive Data Percent cell count reference ranges are not reported, since discordance with absolute values may lead to misinterpretation of CBC data. Current Interpretive Data was last revised on 2017. Basophil pct 0.4 % [facility] Comment: Interpretive Data Percent cell count reference ranges are not reported, since discordance with absolute values may lead to misinterpretation of CBC data. Current Interpretive Data was last revised on 2017. Blood 01/02/2024 11:4 0 AM CATERING COORDINATOR 01/02/2024 4:06 PM CATERING COORDINATOR Chandana Del Valle MD LAB BLOOD ORDERABLES Final Res ult [facility] [address] Department [place] [address] * (ABNORMAL) CBC with auto differential (01/02/2024 11:40 AM CATERING COORDINATOR) WBC 9.3 3.8 - 9.9 K/cumm Hgb 9.5(L) 13.0 - 17.5 g/dL [facility] Hct 31.4(L) 38.9 - 50.3 % [facility] Plt 638(H) 150 - 400 K/cumm [facility] MPV 9.3 9.1 - 12.3 fL [facility] RBC 3.45(L) 4.30 - 5.80 M/cumm [facility] MCV 91.0 81.3 - 96.4 fL [facility] MCH 27.5 27.1 - 33.3 pg [facility] MCHC 30.3(L) 32.3 - 35.7 g/dL [facility] RDW CV 16.1(H) 11.1 - 14.9 % [facility] RDW SD 53.3(H) 35.7 - 48.1 fL [facility] NRBC abs 0.00 0.00 - 0.01 K/cumm [facility] Blood 01/02/2024 11:4 0 AM CATERING COORDINATOR 01/02/2024 4:12 PM CATERING COORDINATOR Narrative [facility] - 01/02/2024 5:45 PM CATERING COORDINATOR Fax results to Dr Chandana Del Valle [phone] Chandana Del Valle MD LAB BLOOD ORDERABLES Final Res ult Performing Organization Address City/[facility]/ZIP Co de Phone Number [facility] [address] [facility] [place] [address] * Folate (01/02/2024 11:40 AM CATERING COORDINATOR) Pathologist [facility] [place] Folic acid 9.9 >=5.0 ng/mL Blood 01/02/2024 11:4 0 AM CATERING COORDINATOR 01/02/2024 4:13 PM CATERING COORDINATOR Narrative [facility] - 01/02/2024 6:18 PM CATERING COORDINATOR Fax results to Dr Chandana Del Valle [phone] Chandana Del Valle MD LAB BLOOD ORDERABLES Final Res ult Performing Organization Address City/[facility]/ZIP Co de Phone Number [facility] [address] [facility] [place] [address] * (ABNORMAL) Ferritin (01/02/2024 11:40 AM CATERING COORDINATOR) Pathologist [facility] Ferritin 555(H) 30 - 400 ng/mL Blood (Blood, Venous) 01/02/2024 11:40 AM CATERING COORDINATOR 01/02/2024 4:13 PM CATERING COORDINATOR Narrative [facility] - 01/02/2024 6:18 PM CATERING COORDINATOR Fax results to Dr Chandana Del Valle [phone] Chandana Del Valle MD LAB BLOOD ORDERABLES Final Res ult Performing Organization Address City/[facility] Co de Phone Number [facility] [address] [facility] [place] [address] * Vitamin B12 (01/02/2024 11:40 AM CATERING COORDINATOR) [facility] Vitamin B12 442 230 - 1,250 pg/mL Blood (Blood, Venous) 01/02/2024 11:40 AM CATERING COORDINATOR 01/02/2024 4:13 PM CATERING COORDINATOR Narrative [facility] - 01/02/2024 6:18 PM CATERING COORDINATOR Fax results to Dr Chandana Del Valle [phone] Chandana Del Valle MD LAB BLOOD ORDERABLES Final Res ult Performing Organization Address [facility] de Phone Number [facility] [address] [facility] [place] [address] * (ABNORMAL) Basic metabolic panel (01/02/2024 11:40 AM CATERING COORDINATOR) [facility] Sodium 133(L) 135 - 145 mmol/L Potassium, pl 3.7 3.3 - 4.9 mmol/L [facility] Chloride 99 97 - 110 mmol/L [facility] CO2 19(L) 22 - 32 mmol/L [facility] Anion gap 15 2 - 15 mmol/L [facility] BUN 16 6 - 25 mg/dL [facility] Creatinine 0.60(L) 0.80 - 1.30 mg/dL [facility] Glucose 93 70 - 199 mg/dL [facility] Comment: Interpretive Data Fasting glucose >/= 126 mg/dl is diagnostic for diabetes. Fasting is defined as no caloric intake for at least 8 hours. Fasting glucose between 100 mg/dl to 125 mg/dl is diagnostic of prediabetes. In a patient with classic symptoms of hyperglycemia or hyperglycemic crisis, a random glucose >/= 200 mg/dl is diagnostic for diabetes. In the absence of unequivocal hyperglycemia, results should be confirmed by repeat testing. The classification and Diagnosis of Diabetes Diabetes Care 202; 46: S19-S40. Current interpretive data was last revised 2022. Calcium 8.4(L) 8.5 - 10.3 mg/dL [facility] Blood 01/02/2024 11:4 0 AM CATERING COORDINATOR 01/02/2024 4:13 PM CATERING COORDINATOR Narrative [facility] - 01/02/2024 6:18 PM CATERING COORDINATOR Fax results to Dr Chandana Del Valle [phone] Chandana Del Valle MD LAB BLOOD ORDERABLES Final Res ult Performing Organization Address City/[facility] Co de Phone Number [facility] [address] Department of Laboratories [place], [place] [id number] * Albumin Creatinine Ratio, Urine (07/19/2023 10:17 AM CDT) Albumin Ur 36.3 mg/L Comment: Interpretive Data No reference range established. Current interpretive data was last revised 2018. Creatinine Ur 123.3 mg/dL [facility] Comment: Interpretive Data No reference range established. Current interpretive data was last revised 2018. Albumin Creatinine Ratio, Ur 29 1 - 29 mg/g [facility] Urine 07/19/2023 10:1 7 AM CDT 07/19/2023 2:19 PM CDT Narrative [facility] - 07/19/2023 4:23 PM CDT Fax results to Dr Sammy Rios [phone] Sammy Rios MD LAB URINE ORDERABLES Fi nal Result Performing Organization Address [facility]/ZIP Co de Phone Number [facility] [address] Department [place] [address] * (ABNORMAL) Lipid panel (07/19/2023 10:17 AM CDT) Cholesterol 107 30 - 199 mg/dL Comment: Interpretive Data Ages < or = 19 years Acceptable: <170 mg/dL Borderline high: 170-199 mg/dL High: >or= 200 mg/dL Ages > or = 20 years Desirable: <200 mg/dL Borderline high: 200-239 mg/dL High: >or= 240 mg/dL Literature References: 1. Expert Panel on Integrated Guidelines for Cardiovascular Health and Risk Reduction in Children and Adolescents. Pediatrics 2011;128:S213 2. NCEP Expert Panel. Circulation 2004;110:227 Current Interpretive Data was last revised on 2017. Triglycerides 114 <=149 mg/dL [facility] Comment: Interpretive Data Ages < or = 9 years Acceptable: <75 mg/dL Borderline high: 75-99 mg/dL High: >or= 100 mg/dL Ages 10 to 20 years Acceptable: <90 mg/dL Borderline high: 90-129 mg/dL High: >or= 130 mg/dL Ages > or = 20 years Desirable: <150 mg/dL Borderline high: 150-199 mg/dL High: 200-499 mg/dL Very high: >or= 499 mg/dL Literature References: 1. Expert Panel on Integrated Guidelines for Cardiovascular Health and Risk Reduction in Children and Adolescents. Pediatrics 2011;128:S213 2. NCEP Expert Panel. Circulation 2003;110:227 Current Interpretive Data was last revised on 2017. HDL 28(L) >=40 mg/dL [facility] Comment: Interpretive Data Ages < or = 19 years Acceptable: >45 mg/dL Borderline low: 40-45 mg/dL Low: <40 mg/dL Ages > or = 20 years Desirable: >or= 60 mg/dL Low: <40 mg/dL Literature References: 1. Expert Panel on Integrated Guidelines for Cardiovascular Health and Risk Reduction in Children and Adolescents. Pediatrics 2011;128:S213 2. NCEP Expert Panel. Circulation 2003;110:227 Current Interpretive Data was last revised on 2017. LDL, calculated 56 <=129 mg/dL [facility] Comment: Interpretive Data Ages < or = 19 years Acceptable: <110 mg/dL Borderline high: 110-129 mg/dL High: >or= 130 mg/dL Ages > or = 20 years Optimal: <100 mg/dL Near optimal: 100-129 mg/dL Borderline high: 130-159 mg/dL High: >160 mg/dL Literature References: 1. Expert Panel on Integrated Guidelines for Cardiovascular Health and Risk Reduction in Children and Adolescents. Pediatrics 2011;128:S213 2. NCEP Expert Panel. Circulation 2004;110:227 Current Interpretive Data was last revised on 2017. Non-HDL Cholesterol 79 mg/dL [facility] Comment: Interpretive Data Ages < or = 19 years Acceptable: <120 mg/dL Borderline high: 120-144 mg/dL High: >145 mg/dL Ages > or = 20 years When triglycerides are >200 mg/dL, Non-HDL cholesterol is a secondary target of therapy with treatment goals that are 30 mg/dL greater than the LDL cholesterol target. Literature References: 1. Expert Panel on Integrated Guidelines for Cardiovascular Health and Risk Reduction in Children and Adolescents. Pediatrics 2011;128:S213 2. NCEP Expert Panel. Circulation 2004;110:227 Current Interpretive Data was last revised on 2017. Chol/HDL ratio 4 [facility] Blood (Blood, Venous) 07/19/2023 10:17 AM CDT 07/19/2023 2:19 PM CDT Narrative [facility] - 07/19/2023 4:14 PM CDT Fax results to Dr Sammy Rios [phone] Sammy Rios MD LAB BLOOD ORDERABLES Fi nal Result [facility] [address] Department [place] [address] * Hepatitis C antibody (09/12/2022 12:11 PM CDT) Pathologist [facility] Hep C Ab Nonreactive Nonreactive [facility] Comment: Interpretive Data Nonreactive: Antibodies to HCV not detected. Does NOT exclude the possibility of recent exposure to HCV. Equivocal: Equivocal for HCV antibodies. Supplemental molecular testing will be automatically performed to determine infection status in accordance with current CDC screening recommendations. Reactive: Positive for HCV antibodies. This may represent current or past HCV infection. Supplemental molecular testing will be automatically performed to determine current infection status in accordance with current CDC screening recommendations. Interpretive data was last revised on 2019. Blood 09/12/2022 12:1 1 PM CDT 09/12/2022 8:53 PM CDT Raimundo Andrew MD LAB MICROBIOLOGY - GENE RAL ORDERABLES [place] - [place] [address] [address] [place] [address] from Last 3 Months or Most Recently Relevant to Health Maintenance Insurance MEDICARE [facility] Address: [id number] [place] [id number] [employer] Member Subscriber Plan / Payer (Ef fective 2021-Present) Name:Yadira Monroe Relation to Subscriber:Self Name:SalisabelMonroe Payer ID:[id number] Group ID:[id number] Type:COMMERCIAL Address: [address] [address] MEDICARE [employer] MEDICARE [facility] Address: [address] [place] [phone] [employer] Member Subscriber Plan / Payer (Ef fective 2021-Present) Name:Monroe May Relation to Subscriber:Self Name:Monroe May Payer ID:[id number] Group ID:[id number] Type:COMMERCIAL Address: [address] [place] [address] Care Teams Claim Processor Relationship Specialty Start Date End Date Sammy Rios MD [address] [place] [address] PCP - General 05/06/16
--- OUTSIDE RECORDS SUMMARY | 2024-03-18 15:36 | XMS_ITS | Clinical Summary ---
Author Organization [facility] Address [address], [address] [address] Phone Care Team Providers Care Hydrogeologist Name Role Phone Sammy Rios MD Primary Care Provider Social History Tobacco Use Types Packs/Day Years Used Date Smoking Tobacco: Never Assessed Sex and Gender Information Value Date Recorded Sex Assigned at Not on file Legal Sex Male 7:33 PM CDT Gender Identity Not on file Sexual Orientation Not on file Plan of Treatment Health Maintenance Due Date Last Done Comments Hepatitis C Virus (HCV) Screening 1955 TdaP Immunization 1955 Colonoscopy 2001 Colorectal Cancer Screening 2001 Cologuard 2006 Immunochemical Fecal Occult Blood 2006 Pneumococcal Immunization (5 0+ years) (1 of 1 - PCV) 2006 Zoster Immunization (1 of 2) 2006 PSA Discussion 11/26/2011 Influenza Immunization (#1) 2023 SARS-COV-2 Immunization ( - 2023-25 season) 2023 Respiratory Syncytial Virus (RSV) Immunization (Adult) (1 - 1-dose 75+ series) 11/26/2031 Hepatitis B Immunization Aged Out No longer eligible based on patient's age to complete this topic Meningococcal Immunization (ACWY) Aged Out No longer eligible based on patient's age to complete this topic Rotavirus Immunization Aged Out No lo nger eligible based on patient's age to complete this topic Insurance [facility] Care Teams Hydrogeologist Relationship Specialty Start Date End Date Sammy Rios MD [address] [place] [address] PCP - General Family Medicine 10/18/16
--- OUTSIDE RECORDS SUMMARY | 2024-03-18 15:36 | XMS_ITS | Encounter Summary ---
Author Organization [facility] Address [address] [place] [address] Care Team Providers Care Product Development Director Name Role Phone Sammy Rios MD Primary Care Provider Sammy Rios MD Primary Care Provider Encounter Details Date Type Department Care Team (Late st Contact Info) Description 04/18/2016 Orders Only [facility] ProviderMyla MD [address] [place] [id number] Social History Tobacco Use Types Packs/Day Years Used Date Smoking Tobacco: Never Alcohol Use Standard Drinks/Week Comments Yes 0 (1 standard drink = 0.6 oz pur e alcohol) Sex and Gender Information Value Date Recorded Sex Assigned at Not on file Legal Sex Male 11:33 PM PASSENGER INTERLINE CLERK Gender Identity Not on file Sexual Orientation Choose not to disclose 2020 9:41 AM PASSENGER INTERLINE CLERK documented as of this encounter Plan of Treatment Not on file documented as of this encounter Procedures Procedure Name Priority Date/Time Associated Diagnosis Comments CARDIOLOGY REPORT 04/18/2016 documented in this encounter Results * CARDIOLOGY REPORT (04/18/2016) Anatomical Region Laterality Modality Other Narrative 04/18/2016 Ordered by an unspecified provider. Historical Provider [facility] [place] Final Result documented in this encounter Visit Diagnoses Not on filedocumented in this encounter Care Teams Product Development Director Relationship Specialty Start Date End Date Sammy Rios MD [address] [place] [address] PCP - General 05/06/16 Sammy Rios MD [address] [place] [address] PCP - General 02/12/16 05/05/16 documented as of this encounter
--- OUTSIDE RECORDS SUMMARY | 2024-03-18 15:36 | XMS_ITS | Referral Summary ---
Author Organization [facility] [address] Address [address] [place] [address] Care Team Providers Care Mixing Machine Operator Name Role Phone Sammy Rios MD Primary Care Provider Encounters Date Type Department Care Team Description 03/15/2024 2:00 PM HEATING UNIT MECHANIC Office Visit [facility] Medical [facility] Sports Medicine and Primary Care at [address] [phone] Guillermo Das DO Effusion of right knee joint (Primary Dx); Primary osteoarthritis of left knee; Internal derangement of right knee 03/01/2024 3:30 PM HEATING UNIT MECHANIC Office Visit [facility] Medical [facility] Sports Medicine and Primary Care at [address] [phone] Guillermo Das DO Bilateral primary osteoarthritis of knee (Primary Dx) 01/22/2024 4:05 PM HEATING UNIT MECHANIC - 01/22/2024 11:59 PM HEATING UNIT MECHANIC Hospital Encounter [address] [address] Diabetes mellitus without complication (CMS/HCC) (HCC) Discharge Disposition: Discharge to home or self care 01/22/2024 Orders Only [facility] Medical [facility] Orthopedic and Sports Medicine [address] [place] [phone] Irwin Potter PA Primary osteoarthritis of both knees (Primary Dx); Acute bilateral knee pain 01/22/2024 3:45 PM HEATING UNIT MECHANIC Lab [facility] Medical Group Outpatient Lab at [address] [phone] Diabetes mellitus without complication (CMS/HCC) (HCC) (Primary Dx) 01/22/2024 2:45 PM HEATING UNIT MECHANIC Office Visit [facility] Medical Group Orthopedic and Sports Medicine [address] [place] [phone] Irwin Potter PA Primary osteoarthritis of both knees (Primary Dx) 01/02/2024 11:40 AM HEATING UNIT MECHANIC - 01/02/2024 11:59 PM HEATING UNIT MECHANIC Hospital Encounter [address] [address] Anemia, unspecified Discharge Disposition: Discharge to home or self care 01/02/2024 11:30 AM HEATING UNIT MECHANIC Lab [facility] Medical Group Outpatient Lab at [address] [phone] Anemia, unspecified (Primary Dx); Essential hypertension; Hyperlipidemia associated with type 2 diabetes mellitus (HCC); Rheumatoid arthritis with positive rheumatoid factor (HCC) 01/02/2024 10:00 AM HEATING UNIT MECHANIC Office Visit [facility] Rheumatology [address] [place] [address] [address] [place] [phone] Rosemarie Vazquez MD Rheumatoid arthritis with positive rheumatoid factor, involving unspecified site (HCC) (Primary Dx); High risk medication use; Primary osteoarthritis of both knees; Neuropathy (CMS/HCC); Transportation insecurity 12/25/2023 Telephone [facility] Orthopedics and Sports Medicine [address] [facility] [address] [address] Oziel Barney MD from Last 3 Months Allergies No known active allergies Medications omeprazole 20 mg tablet,delayed release (DR/EC) take 1 by Oral route every day 0 0 10/09/19 16 Active metFORMIN XR (GLUCOPHAGE XR) 500 mg 24 hr tablet 03/08/19 22 Active semaglutide (OZEMPIC) 2 mg/dose (8 mg/3 mL) pen injector injection 03/22/19 23 Active METFORMIN-BL[facility]OD [facility] Active alcohol swabs pads, medicatedIndicat ions:Use one [...] ng multiple sites with positive rheumatoid factor ([facility]) 02/13/2023 Hyperlipidemia associated with type [...] with BMI of 45.0-49.9, adult Atrial fibrillation ([facility]) 10/09/2015 06/10/2017 Overview (05/12/2016): Atrial fibrillation, new onset Hyperlipidemia 10/09/2015 06/10/2017 Overview (05/12/2016): Hyperlipidemia, unspecified Morbid obesity 10/09/2015 06/10/2017 Overview (05/13/2016): Morbid obesity due to excess calories Immunizations Name Administration Dates Next Due Influenza, Quadrivalent, Hig h Dose, Preservative Free, Intrr 10/31/2022 Pneumococcal Conjugate Pcv20 09/12/2022 ZOSTER Recombinant 12/13/2022,09/12/2022 Social History Tobacco Use Types Packs/Day Years [...] often do you attend chur ch or mandaen services? Never 01/02/2024 Do you belong to [...] Recorded Patient Health Questionnaire-2 Score 3 01/02/2024 [facility] - Occup[facility] Stress [...] place to sleep or slept in a fdc (including now)? No 12/13/2022 Sex and Gender Information Value Date Recorded Sex Assigned at Not on file Legal Sex Male 11:33 PM HEATING UNIT MECHANIC Gender Identity Not on file Sexual Orientation Choose not to disclose 2020 9:41 AM HEATING UNIT MECHANIC Last Filed Vital Signs Vital Sign Reading Time Taken Comments Blood Pressure 103/73 03/15/2024 2:16 PM HEATING UNIT MECHANIC Pulse 73 03/15/2024 2:16 PM HEATING UNIT MECHANIC Temperature 36.1 C (97 F) 09/27/2023 10:43 AM CDT Respiratory Rate 16 03/01/2024 3:45 PM HEATING UNIT MECHANIC Oxygen Saturation 100% 01/02/2024 9:53 AM HEATING UNIT MECHANIC Inhaled Oxygen Concentration - - Weight 101.2 kg (223 lb) 01/22/2024 2:57 PM HEATING UNIT MECHANIC Height 180.3 cm (5' 11 ) 03/15/2024 2:16 PM HEATING UNIT MECHANIC Body Mass Index 31.1 01/22/2024 2:57 PM HEATING UNIT MECHANIC Plan of Treatment Not on file Procedures Procedure Name Priority Date/Time Associated Diagnosis Comments DC ARTHROCENTESIS ASPIR&/INJ MAJOR JT/BURSA W/US Routine 03/15/2024 2:00 PM HEATING UNIT MECHANIC Effusion of right knee joint Internal derangement of right knee DC ARTHROCENTESIS ASPIR&/INJ MAJOR JT/BURSA W/US Routine 03/15/2024 2:00 PM HEATING UNIT MECHANIC Primary osteoarthritis of left knee EGFR Routine 01/22/2024 4:05 PM HEATING UNIT MECHANIC Diabetes mellitus without complication (CMS/HCC) (HCC) HEMOGLOBIN A1C Routine 01/22/2024 4:05 PM HEATING UNIT MECHANIC Diabetes mellitus without complication (CMS/HCC) (HCC) COMPREHENSIVE METABOLIC PANEL Routine 01/22/2024 4:05 PM HEATING UNIT MECHANIC Diabetes mellitus without complication (CMS/HCC) (HCC) EGFR Routine 01/02/2024 11:40 AM HEATING UNIT MECHANIC Anemia, unspecified DIFFERENTIAL AUTO Routine 01/02/2024 11: 40 AM HEATING UNIT MECHANIC Anemia, unspecified BASIC METABOLIC PANEL Routine 01/02/2024 11:40 AM HEATING UNIT MECHANIC Anemia, unspecified CBC WITH AUTO DIFFERENTIAL Routine 01/02/2024 11:40 AM HEATING UNIT MECHANIC Anemia, unspecified FERRITIN Routine 01/02/2024 11:40 AM HEATING UNIT MECHANIC Anemia, unspecified VITAMIN B12 Routine 01/02/2024 11:40 AM HEATING UNIT MECHANIC Anemia, unspecified FOLATE Routine 01/02/2024 11:40 AM HEATING UNIT MECHANIC Anemia, unspecified LIPID PANEL Routine 07/19/2023 10:17 [...] Recently Relevant to Health Maintenance Results * DC ARTHROCENTESIS ASPIR&/INJ MAJOR JT/BURSA W/US (03/15/2024 2:00 PM HEATING UNIT MECHANIC) Narrative Guillermo Das DO - 03/15/2024 2:00 PM HEATING UNIT MECHANIC Guillermo Das DO 03/15/2024 2:43 PM Large [...] aspiration Patient name: Monroe May Performing physician: Guillermo Das DO, WENDY BARAJAS Reason for procedure: Right knee swelling and [...] IN CLINIC/BEDSIDE [facility] Final Result * DC ARTHROCENTESIS ASPIR&/INJ MAJOR JT/BURSA W/US (03/15/2024 2:00 PM HEATING UNIT MECHANIC) Narrative Guillermo Das DO - 03/15/2024 2:00 PM HEATING UNIT MECHANIC Guillermo Das DO 03/15/2024 2:43 PM Large [...] injection Patient name: Monroe May Performing physician: KARL Mcgraw DO, CAQSM Reason for procedure: Left knee Osteoarthritis Patient [...] %); 80 mg methylPREDNISolone acetate 80 mg/mL Guillermo Das DO IN CLINIC/BEDSIDE [facility] Final Result * eGFR (01/22/2024 4:05 PM HEATING UNIT MECHANIC) eGFR >90 >=60 mL/min/1. 73 m2 Comment: [...] of Race in Diagnosing Kidney Disease, JASN 2021). The CKD-EPI equation should not be used for patients with unstable renal function and has not been validated in children and those over 70. Current interpretive data was last reviewed 2020. Blood 01/22/2024 4:05 PM HEATING UNIT MECHANIC 01/22/2024 8:48 PM HEATING UNIT MECHANIC Sammy Rios MD LAB BLOOD ORDERABLES Fi nal Result Performing Organization Address [facility] de Phone Number [facility] [address] [place] [address] * Hemoglobin A1c (01/22/2024 4:05 PM HEATING UNIT MECHANIC) Pathologist [facility] Hgb A1C 4.7 4.0 - 5.6 % Estimated Average Glucose 88 mg/dL [facility] Comment: The ADA recommends reporting an estimated Average Glucose (eAG) with all Hemoglobin A1c results using the equation derived from a study of 507 normal and diabetic adults. Minority populations were underrepresented and children were not included. (Diabetes Care 31:7942-8085, 2008). The eAG is not equivalent to a fasting glucose. Blood (Blood, Venous) 01/22/2024 4:05 PM HEATING UNIT MECHANIC 01/22/2024 8:39 PM HEATING UNIT MECHANIC Narrative [facility] - 01/22/2024 9:06 PM HEATING UNIT MECHANIC FAX RESULTS TO SAMMY RIOS [phone] Sammy Rios MD LAB BLOOD ORDERABLES Fi nal Result Performing Organization Address [facility] de Phone Number RONANTONIO RODRÍGUEZ [address] [place] [address] * (ABNORMAL) Comprehensive metabolic panel (01/22/2024 4:05 PM HEATING UNIT MECHANIC) Pathologist [facility] Sodium 135 135 - 145 mmol/L Potassium, pl 3.6 3.3 - 4.9 mmol/L [facility] Chloride 96(L) 97 - 110 mmol/L [facility] CO2 24 22 - 32 mmol/L [facility] Anion gap 15 2 - 15 mmol/L [...] CH Blood (Blood, Venous) 01/22/2024 4:05 PM HEATING UNIT MECHANIC 01/22/2024 8:39 PM HEATING UNIT MECHANIC us Sammy Rios MD LAB BLOOD ORDERABLES [facility] Result [facility] [address] [place] [address] * eGFR (01/02/2024 11:40 AM HEATING UNIT MECHANIC) eGFR >90 >=60 mL/min/1. 73 m2 Comment: [...] reviewed 2020. Blood 01/02/2024 11:4 0 AM HEATING UNIT MECHANIC 01/02/2024 5:28 PM HEATING UNIT MECHANIC us Chandana Del Valle MD LAB BLOOD ORDERABLES Final Res ult [facility] [address] [place] [address] * (ABNORMAL) Differential, auto (01/02/2024 11:40 AM HEATING UNIT MECHANIC) Neutrophil abs 7.5(H) 1.5 - 6.5 K/cumm Imm gran abs 0.1 0.0 - 0.1 K/cumm [facility] Lymphocyte abs 1.4 0.8 - 3.3 K/cumm [facility] Monocyte abs 0.3 0.2 - 0.8 K/cumm [facility] Eosinophil abs 0.0 0.0 - 0.5 K/cumm [facility] Basophil abs 0.0 0.0 - 0.1 K/cumm [facility] Neutrophil pct 81.2 % [facility] Comment: Interpretive Data Percent cell count reference ranges are not reported, since discordance with absolute values may lead to misinterpretation of CBC data. Current Interpretive Data was last revised on 2017. Imm gran pct 0.6 % [facility] Comment: Interpretive Data Percent cell count reference ranges are not reported, since discordance with absolute values may lead to misinterpretation of CBC data. Current Interpretive Data was last revised on 2017. Lymphocyte pct 14.6 % [facility] Comment: Interpretive Data Percent cell count reference ranges are not reported, since discordance with absolute values may lead to misinterpretation of CBC data. Current Interpretive Data was last revised on 2017. Monocyte pct 2.8 % [facility] Comment: Interpretive Data Percent cell count reference [...] on 2017. Blood 01/02/2024 11:4 0 AM HEATING UNIT MECHANIC 01/02/2024 4:06 PM HEATING UNIT MECHANIC us Chandana Del Valle MD LAB BLOOD ORDERABLES Final Res ult [facility] [address] Department [place] [address] * (ABNORMAL) CBC with auto differential (01/02/2024 11:40 AM HEATING UNIT MECHANIC) WBC 9.3 3.8 - 9.9 K/cumm Hgb 9.5(L) 13.0 - 17.5 g/dL [facility] Hct 31.4(L) 38.9 - 50.3 % [facility] Plt 638(H) 150 - 400 K/cumm [facility] MPV 9.3 9.1 - 12.3 fL [facility] RBC 3.45(L) 4.30 - 5.80 M/cumm [facility] MCV 91.0 81.3 - 96.4 fL [facility] MCH 27.5 27.1 - 33.3 pg [facility] MCHC 30.3(L) 32.3 - 35.7 g/dL [facility] RDW CV 16.1(H) 11.1 - 14.9 % [facility] RDW SD 53.3(H) 35.7 - 48.1 fL [facility] NRBC abs 0.00 0.00 - 0.01 K/cumm [facility] Blood 01/02/2024 11:4 0 AM HEATING UNIT MECHANIC 01/02/2024 4:12 PM HEATING UNIT MECHANIC Narrative [facility] - 01/02/2024 5:45 PM HEATING UNIT MECHANIC Fax results to Dr Chandana Del Valle [phone] Chandana Del Valle MD LAB BLOOD ORDERABLES Final Res ult Performing Organization Address City/[facility]/ZIP Co de Phone Number RONANTONIO [address] [place] [address] * Folate (01/02/2024 11:40 AM HEATING UNIT MECHANIC) Pathologist [facility] Folic acid 9.9 >=5.0 ng/mL Blood 01/02/2024 11:4 0 AM HEATING UNIT MECHANIC 01/02/2024 4:13 PM HEATING UNIT MECHANIC Narrative [facility] - 01/02/2024 6:18 PM HEATING UNIT MECHANIC Fax results to Dr Chandana Del Valle [phone] Chandana Del Valle MD LAB BLOOD ORDERABLES Final Res ult Performing Organization Address [facility] Co de Phone Number RONANTONIO [address] [place] [address] * (ABNORMAL) Ferritin (01/02/2024 11:40 AM HEATING UNIT MECHANIC) Pathologist [facility] Ferritin 555(H) 30 - 400 ng/mL Blood (Blood, Venous) 01/02/2024 11:40 AM HEATING UNIT MECHANIC 01/02/2024 4:13 PM HEATING UNIT MECHANIC Narrative [facility] - 01/02/2024 6:18 PM HEATING UNIT MECHANIC Fax results to Dr Chandana Del Valle [phone] Chandana Del Valle MD LAB BLOOD ORDERABLES Final Res ult Performing Organization Address City/[facility]/ZIP Co de Phone Number RONANTONIO RODRÍGUEZ [address] Department [facility] [place] [address] * Vitamin B12 (01/02/2024 11:40 AM HEATING UNIT MECHANIC) Vitamin B12 442 230 - 1,250 pg/mL Blood (Blood, Venous) 01/02/2024 11:40 AM HEATING UNIT MECHANIC 01/02/2024 4:13 PM HEATING UNIT MECHANIC Narrative [facility] - 01/02/2024 6:18 PM HEATING UNIT MECHANIC Fax results to Dr Chandana Del Valle [phone] us Chandana Del Valle MD LAB BLOOD ORDERABLES Final Res ult [facility] [address] Department [place] [address] * (ABNORMAL) Basic metabolic panel (01/02/2024 11:40 AM HEATING UNIT MECHANIC) Pathologist [facility] Sodium 133(L) 135 - 145 mmol/L Potassium, pl 3.7 3.3 - 4.9 mmol/L [facility] Chloride 99 97 - 110 mmol/L [facility] CO2 19(L) 22 - 32 mmol/L [facility] Anion gap 15 2 - 15 mmol/L [facility] BUN 16 6 - 25 mg/dL [facility] Creatinine 0.60(L) 0.80 - 1.30 mg/dL [facility] Glucose 93 70 - 199 mg/dL [facility] Comment: Interpretive Data Fasting glucose >/= 126 [...] classification and Diagnosis of Diabetes Diabetes Care 2021; 46: S19-S40. Current interpretive data was last revised 2022. Calcium 8.4(L) 8.5 - 10.3 mg/dL [facility] Blood 01/02/2024 11:4 0 AM HEATING UNIT MECHANIC 01/02/2024 4:13 PM HEATING UNIT MECHANIC Narrative [facility] - 01/02/2024 6:18 PM HEATING UNIT MECHANIC Fax results to Dr Chandana Del Valle [phone] Chandana Del Valle MD LAB BLOOD ORDERABLES Final Res ult Performing Organization Address [facility] de Phone Number [facility] [address] [place] [address] * Albumin Creatinine Ratio, Urine (07/19/2023 10:17 AM CDT) Albumin Ur 36.3 mg/L Comment: Interpretive Data No reference range established. Current interpretive data was last revised 2018. Creatinine Ur 123.3 mg/dL [facility] Comment: Interpretive Data No reference range established. Current interpretive data was last revised 2018. Albumin Creatinine Ratio, Ur 29 1 - 29 mg/g [facility] Urine 07/19/2023 10:1 7 AM CDT 07/19/2023 2:19 PM CDT Narrative [facility] - 07/19/2023 4:23 PM CDT Fax results to Dr Sammy Rios [phone] Sammy Rios MD LAB URINE ORDERABLES Fi nal Result Performing Organization Address [facility] de Phone Number [facility] [address] [place] [address] * (ABNORMAL) Lipid panel (07/19/2023 10:17 AM [...] CDT Fax results to Dr Sammy Rios [phone] Sammy Rios MD LAB BLOOD ORDERABLES Fi nal Result Performing Organization Address [facility] Co de Phone Number [facility] [address] [place] [address] * Hepatitis C antibody (09/12/2022 12:11 PM CDT) Pathologist [facility] Hep C Ab Nonreactive Nonreactive [facility] Comment: [...] GENE RAL ORDERABLES Edited Result - Final Performing Organization Address City/[facility]/ZIP Co de Phone Number [facility] [address] Department [place], [place] [phone] from Last 3 Months or Most Recently Relevant to Health Maintenance Insurance MEDICARE Get Together Member Subscriber Plan / Payer (Ef fective 2021-Present) Name:Monroe May Relation to Subscriber:Self Name:Monroe May Payer ID:[id number] Group ID:[id number] Type:COMMERCIAL Address: [place] [address] MEDICARE Get Together MEDICARE Get Together Member Subscriber Plan / Payer ( fective 2021-Present) Name:Monroe May Relation to Subscriber:Self Name:YadiraMonroe Payer ID:[id number] Group ID:[id number] Type:COMMERCIAL Address: [id number] [place] [address] Care Teams Mixing Machine Operator Relationship Specialty Start Date End Date Sammy Rios MD [address] [facility] [address] [place] [address] PCP - General 05/06/16
--- OUTSIDE RECORDS SUMMARY | 2024-03-18 15:36 | XMS_ITS | Encounter Summary ---
Author Organization [facility] Medical [facility] Address [address] [place] [address] Care Team Providers Care Food Technology Teacher Name Role Phone Sammy Rios MD Primary Care Provider Sammy Rios MD Primary Care Provider Sammy Rios MD Primary Care Provider Sammy Rios MD Primary Care Provider Encounter Details Date Type Department Care Team (Late st Contact Info) Description 02/18/2015 Orders Only [facility] ProviderMyla MD [address] [place] [address] Social History Tobacco Use Types Packs/Day Years Used Date Smoking Tobacco: Never Assessed Sex and Gender Information Value Date Recorded Sex Assigned at Not on file Legal Sex Male 11:33 PM CHIEF ANALYTICS OFFICER Gender Identity Not on file Sexual Orientation Choose not to disclose 2020 9:41 AM CHIEF ANALYTICS OFFICER documented as of this encounter Plan of Treatment Not on file documented as of this encounter Procedures Procedure Name Priority Date/Time Associated Diagnosis Comments CARDIOLOGY REPORT 02/18/2015 documented in this encounter Results * CARDIOLOGY REPORT (02/18/2015) Anatomical Region Laterality Modality Other Narrative 02/18/2015 Ordered by an unspecified provider. Historical Provider [facility] Final Result documented in this encounter Visit Diagnoses Not on filedocumented in this encounter Care Teams Food Technology Teacher Relationship Specialty Start Date End Date Sammy Rios MD [address] [place] [address] PCP - General 05/06/16 Sammy Rios MD [address] [place] [address] PCP - General 02/12/16 05/05/16 Sammy Rios MD [address] [place] [address] PCP - General 10/16/15 02/11/16 Sammy Rios MD [address] [place] [address] PCP - General 10/09/15 10/15/15 documented as of this encounter
--- OUTSIDE RECORDS SUMMARY | 2024-03-18 15:36 | XMS_ITS | Encounter Summary ---
Author Organization [facility] Address [address] [place] [address] Care Team Providers Care Route Delivery Clerk Name Role Phone Sammy Rios MD Primary Care Provider Encounter Details Date Type Department Care Team (Late st Contact Info) Description 06/03/2016 Orders Only [facility] ProviderMyla MD [facility] [place] [address] Social History Tobacco Use Types Packs/Day Years Used Date Smoking Tobacco: Never Alcohol Use Standard Drinks/Week Comments Yes 0 (1 standard drink = 0.6 oz pur e alcohol) Sex and Gender Information Value Date Recorded Sex Assigned at Not on file Legal Sex Male 11:33 PM ORIENTAL RUG REPAIRER Gender Identity Not on file Sexual Orientation Choose not to disclose 2020 9:41 AM ORIENTAL RUG REPAIRER documented as of this encounter Plan of Treatment Not on file documented as of this encounter Procedures Procedure Name Priority Date/Time Associated Diagnosis Comments CARDIOLOGY REPORT 06/03/2016 documented in this encounter Results * CARDIOLOGY REPORT (06/03/2016) Anatomical Region Laterality Modality Other Narrative 06/03/2016 Ordered by an unspecified provider. Historical Provider [facility] Final Result documented in this encounter Visit Diagnoses Not on filedocumented in this encounter Care Teams Route Delivery Clerk Relationship Specialty Start Date End Date Sammy Rios MD [address] [facility] [address] [place] [address] PCP - General 05/06/16 documented as of this encounter
[2024-03-18 15:52] LABS: Hematocrit 35.4 % (42.0-52.0); Hemoglobin 10.8 g/dL (14.0-18.0); Mean Corpuscular HGB Conc 30.5 g/dl (32-36); Mean Corpuscular Hemoglobin 28.7 pg (26-34); Mean Corpuscular Volume 94.1 fl (80-100); Mean Platelet Volume 8.4 fl (7.4-10.4); Platelet Count Result 357 k/mm3 (150-375); Red Blood Count 3.76 M/mm3 (4.6-6.20); Red Cell Distribution Width 14.6 % (11.5-14.5); White Blood Count 9.2 K/mm3 (4.5-10.0)
[2024-03-18 17:02] LABS: Iron 34 ug/dL (49-181)
[2024-03-18 17:04] LABS: Anion Gap 10 mmol/L (4-12); Blood Urea Nitrogen 26 mg/dL (9-20); Calcium 9.2 mg/dL (8.4-10.2); Carbon Dioxide 28 mmol/L (22-30); Chloride 101 mmol/L (98-107); Estimated Glomerular Filt Rate > 60; Glucose 86 mg/dL (65-110); Potassium 3.6 mmol/L (3.4-5.0); Sodium 139 mmol/L (137-145)
[2024-03-18 17:14] LABS: Percent Iron Saturation 13 % (20-50)
[2024-03-18 18:10] LABS: Folic Acid > 20.0 ng/mL (2.76->20)
== END 2024-03-18 15:28 | disposition home or self-care (01) ==
LOC: ANHLAB 15:28
PROVIDERS: PCP Family Medicine; Visit Provider Internal Medicine Hematology & Oncology
DX: D64.9 Anemia, unspecified (principal)
CPT/HCPCS: 36415; 80048; 82607; 82728; 82746; 83540; 83550; 85027